=== PATIENT | male | born 1990 | race Caucasian/White ===

== ENCOUNTER 2019-08-12 11:18 | Outpatient (CLI) | payer OTHER, SELFPAY ==
--- NOTE | 2019-08-12 11:28 | ECG_ITS ---
Measurements Intervals [place] Rate: 128 P: 48 VA: 153 QRS: 63 QRSD: 94 T: -1 QT: 305 QTc: 446 Interpretive Statements SINUS TACHYCARDIA INFERIOR INFARCT, AGE INDETERMINATE ABNORMAL ECG Electronically Signed On 08-12-2019 12:16:10 CAPACITY PLANNER by Santiago Jung D.O.
== END 2019-08-12 11:19 | disposition home or self-care (01) ==
LOC: ANHCARD 11:20
PROVIDERS: PCP Internal Medicine; Visit Provider Physician Assistant
DX: R00.0 Tachycardia, unspecified (principal); R94.31 Abnormal electrocardiogram [ECG] [EKG]
CPT/HCPCS: 93005

== ENCOUNTER 2019-09-09 09:23 | Emergency (ER) | payer OTHER, SELFPAY ==
[2019-09-09 09:35] VITALS: BP 130/99; PULSE 152; RESP 20; TEMP 36.9; O2SAT 98
--- NOTE | 2019-09-09 10:26 | ED.ANXIETY ---
HPI - Anxiety General Chief Complaint: Anxiety Stated Complaint: VERTIGO/HALLUCINATIONS Time Seen by Provider: 09/09/19 10:05 Source: patient Mode of arrival: ambulatory Limitations: no limitations History of Present Illness HPI narrative: A 28 y/o male pt presents to the ED, with c/o anxiety, difficulty sleeping, and vertigo x 13 days. Pt states that he has only been able to sleep 1 hour at a time. He states he was recently sick x 4 days with N/V and decreased intake of food, but started feeling better x 2 days ago. Pt reports hallucinations and hearing voices x 2 days. He notes myalgia, anxiety, and fatigue, but denies chills, sweats, SOB, or fever. He notes having CP recently that he was evaluated at [facility] for and states that all results were normal. Pt reports hearing voices telling him to kill himself x 3 days ago, but denies any suicidal/homicidal thoughts or plan. Pt states that he has a PMHx of anxiety, depression and HTN. He reports being prescribed Buspirone and Mirtazapine in April by his psychiatrist. Pt reports a family hx of Schizophrenia and notes being a daily smoker and drinker. complaint: anxiety and other (vertigo) Onset (ago): day(s) (13) Symptoms: other (difficulty sleeping, vertigo, hallucination, hearing voices, fatigue, myalgias) Quality: worsening Associated symptoms: nausea/vomiting (subsided x 2 days ago) and other (hallucination, hearing voices, fatigue, myalgias, difficulty sleeping, vertigo) Related Data Home Medications Medication Instructions Recorded Confirmed buprenorphine 5.7 mg-naloxone 1.4 1 tablet SUBLINGUAL QID tablet 06/04/19 08/12/19 mg sublingual tablet vilazodone 40 mg tablet 40 mg PO DAILY 06/04/19 08/12/19 Allergies Allergy/AdvReac Type Severity Reaction Status Date / Time No Known Allergies Allergy Verified 09/09/19 09:44 Review of Systems Review of Systems: All systems reviewed & are unremarkable except as noted in HPI and below Constitutional: Constitutional: Denies chills, Reports difficulty sleeping, Denies excessive sweating, Reports fatigue and Denies fever(s) Cardiovascular: Cardiovascular: Reports chest pain (subsided) Respiratory: Respiratory: Denies dyspnea Gastrointestinal: Gastrointestinal: Denies diarrhea, Reports nausea (subsided) and Reports vomiting (subsided) Psychiatric: Psychiatric: Reports abnormal sleep pattern (1 hour of sleep at a time), Reports anxiety, Reports auditory hallucinations, Reports visual hallucinations, Denies homicidal ideation and Denies suicidal ideation PMFSH Past Medical History Medical History (Updated 09/09/19 @ 15:37 by Elayne Bueno MD) Anxiety Depression H/O: HTN (hypertension) Surgical History Surgical History (Updated 09/09/19 @ 13:25 by Lorraine Zelaya Photoblog) No significant past surgical history Social History Social History (Updated 09/09/19 @ 13:26 by Lorraine Zelaya Photoblog) Smoking status: Current every day smoker Tobacco type: cigarettes Second hand tobacco smoke exposure: No Alcohol intake: current Alcohol use details: daily Gender identity (if verbalized by the patient): Male Exam Narrative: Exam Narrative: General appearance: Well-developed, well-nourished Skin: Normal color Head: Normocephalic, nontraumatic Eyes: Clear conjunctiva ENT: Oropharynx normal, ears normal, nose normal Neck: Supple, nontender Chest and respiratory: Airway patent, no respiratory distress, no accessory muscle use Heart: Regular rate/rhythm Abdomen: Soft, nontender, no organomegaly, quiet bowel sounds Vascular: Normal peripheral pulses, normal capillary refill. Musculoskeletal: Normal range of motion, nontender back Neurologic: Alert and oriented ?3, SPRING FITTER is normal as tested, no gross motor deficit
--- NOTE | 2019-09-09 10:29 | ECG_ITS ---
Measurements Intervals [place] Rate: 130 P: 45 [place]: 139 QRS: 62 QRSD: 94 T: 4 QT: 315 QTc: 464 Interpretive Statements SINUS TACHYCARDIA INFERIOR INFARCT, AGE INDETERMINATE ABNORMAL ECG Electronically Signed On 09-09-2019 10:37:43 CDT by Santiago Jung D.O.
[2019-09-09 10:36] VITALS: BP 130/89; PULSE 132; RESP 11; TEMP 36.2; O2SAT 97
[2019-09-09] MEDS: LORAZEPAM 1 MG TABLET PO (10:38)
[2019-09-09 10:56] LABS: Basophils Absolute Auto 0.1 K/mm3 (0.0-0.1); Basophils Percent Auto 0.5 % (0.2-1.2); Eosinophils Absolute Auto 0.1 K/mm3 (0-0.3); Eosinophils Percent Auto 0.6 % (0-4.4); Hematocrit 41.3 % (42.0-52.0); Hemoglobin 14.2 g/dL (14.0-18.0); Immature Granulocyte Absolute 0.09 K/mm3 (0.00-0.031); Immature Granulocyte Percent A 0.7 % (0-0.5); Lymphocytes Absolute Auto 0.86 K/mm3 (0.9-3.2); Lymphocytes Percent Auto 6.9 % (18.3-44.2); Mean Corpuscular HGB Conc 34.4 g/dl (32-36); Mean Corpuscular Hemoglobin 30.8 pg (26-34); Mean Corpuscular Volume 89.6 fl (80-100); Mean Platelet Volume 10.9 fl (7.4-10.4); Monocytes Absolute Auto 0.7 K/mm3 (0.1-0.6); Monocytes Percent Auto 5.7 % (2.6-8.5); Neutrophils Absolute Auto 10.6 K/mm3 (1.3-6.7); Neutrophils Percent Auto 85.6 % (45.5-73.1); Platelet Count Result 143 k/mm3 (150-375); Red Blood Count 4.61 M/mm3 (4.6-6.20); Red Cell Distribution Width 14.6 % (11.5-14.5); White Blood Count 12.4 K/mm3 (4.5-10.0)
[2019-09-09 11:00] LABS: Add Urine Microscopic? YES; Appearance Urine Clear (Clear); Bacteria Urine Trace /hpf; Bilirubin Urine 1+ (Negative); Blood Urine Negative (Negative); Color Urine Amber (Yellow); Glucose Urine UA Negative (Negative); Ketones Urine Trace mg/dL (Negative); Leukocyte Esterase Ur Negative LEU/UL (Negative); Mucus Urine Rare /lpf; Nitrate Urine Negative (Negative); Protein Urine 1+ mg/dL (Negative); RBC Urine 0-2 /hpf (0-2); Specific Grav Ur 1.017 (1.001-1.035); Squamous Epithelial Cell Urine Rare /hpf (Few)
[2019-09-09 11:05] LABS: Ethanol < 10 mg/dL (<10)
[2019-09-09 11:06] LABS: Alanine Aminotransferase 315 U/L (4-50); Albumin Level 4.5 g/dL (3.5-5.1); Alkaline Phosphatase 200 U/L (38-126); Aspartate Amino Transferase 669 U/L (17-59); Bilirubin,Total 2.8 mg/dL (0.2-1.3); Blood Urea Nitrogen 9 mg/dL (9-20); Calcium 10.4 mg/dL (8.4-10.2); Carbon Dioxide 34 mmol/L (22-30); Chloride 90 mmol/L (98-107); Estimated Glomerular Filt Rate > 60; Glucose 129 mg/dL (75-110); Potassium 3.2 mmol/L (3.4-5.0); Sodium 130 mmol/L (137-145)
[2019-09-09 11:35] LABS: Amphetamine Screen Urine Negative (Negative); Barbiturate Screen Urine Negative (Negative); Benzodiazepines Screen Urine Negative (Negative); Cannabinoid Screen Urine Negative (Negative); Cocaine Screen Urine Negative (Negative); Methadone Screen Urine Negative (Negative); Opiate Screen Urine Negative (Negative); Phencyclidine Screen Urine Negative (Negative)
[2019-09-09] MEDS: LORAZEPAM 0.5 MG TABLET 1 MG PO (12:32)
[2019-09-09 13:01] VITALS: BP 142/76; PULSE 89; RESP 18; O2SAT 100
--- NOTE | 2019-09-09 13:20 | PC.NURSE ---
Crisis here to see pt.
--- NOTE | 2019-09-09 14:40 | PC.NURSE ---
Per precision layout worker Surjit, pt does not meet qualification to have pt committed to facility. precision layout worker states that pt is just sleep deprived and once pt sleeps the voices will go away. I informed Maris to speak with pts Dr. Francisco Bueno) and inform him of this. Per Dr. Bueno he does not think pt should leave hospital. He will keep him here until we can find a bed for pt.
[2019-09-09 15:13] VITALS: BP 141/76; PULSE 82; RESP 18; O2SAT 100
[2019-09-09] MEDS: NICOTINE (*PBKC) 21 MG PATCH 1 PATCH TRANSDERM (15:14)
[2019-09-12 10:04] LABS: Methyl Alcohol Level None Detected (None Detected)
== END 2019-09-09 15:44 | disposition home or self-care (01) ==
PROVIDERS: Emergency Provider Emergency Medicine; PCP Internal Medicine
DX: G47.00 Insomnia, unspecified (principal); F32.9 Major depressive disorder, single episode, unspecified; F41.9 Anxiety disorder, unspecified; I10 Essential (primary) hypertension; F17.210 Nicotine dependence, cigarettes, uncomplicated; R00.0 Tachycardia, unspecified; R94.31 Abnormal electrocardiogram [ECG] [EKG]
CPT/HCPCS: 36415; 80053; 80307; 81001; 84443; 84600; 85025; 93005; 99284; A9270

== ENCOUNTER 2020-02-21 00:21 | Emergency (ER) | payer OTHER, SELFPAY ==
[2020-02-21 00:24] VITALS: BP 135/80; PULSE 96; RESP 15; TEMP 36.7; O2SAT 97
[2020-02-21 00:34] VITALS: BP 139/79; PULSE 98; RESP 14; RESP 18; TEMP 36.7; O2SAT 100
[2020-02-21 02:15] VITALS: BP 127/50; PULSE 89; RESP 14; O2SAT 92
[2020-02-21 03:00] VITALS: BP 134/58; PULSE 85; RESP 12; O2SAT 92
--- NOTE | 2020-02-21 03:01 | ED.OVERDOSE ---
HPI - Overdose General Chief Complaint: Overdose Stated Complaint: od Time Seen by Provider: 02/21/20 02:46 Source: patient Mode of arrival: EMS Limitations: no limitations History of Present Illness HPI Narrative: This patient is a 29 year old male with history of opioid addiction who presents for evaluation after an overdose. PAtient states he has been off fentanyl for a while but tonight he decided to use again. He was found unresponsive by his parents. EMS reportedly gave patient 16 mg narcan. Patient denies any complaints. Related Data Home Medications Medication Instructions Recorded Confirmed buprenorphine 5.7 mg-naloxone 1.4 1 tablet SUBLINGUAL QID tablet 06/04/19 08/12/19 mg sublingual tablet vilazodone 40 mg tablet 40 mg PO DAILY 06/04/19 08/12/19 Allergies Allergy/AdvReac Type Severity Reaction Status Date / Time No Known Allergies Allergy Verified 09/09/19 09:44 Review of Systems Review of Systems: All systems reviewed & are unremarkable except as noted in HPI and below Constitutional: Constitutional: Denies chills and Denies fever(s) Cardiovascular: Cardiovascular: Denies chest pain Respiratory: Respiratory: Denies cough and Denies dyspnea Gastrointestinal: Gastrointestinal: Denies abdominal pain, Denies nausea and Denies vomiting Neurologic: Reports headache(s) PMFSH Past Medical History Medical History (Updated 02/21/20 @ 03:45 by Louise Parks MD) Anxiety Depression H/O: HTN (hypertension) Surgical History Surgical History (Updated 09/09/19 @ 13:25 by Lorraine Zelaya Adype) No significant past surgical history Social History Social History (Updated 09/09/19 @ 13:26 by Lorraine Zelaya Adype) Smoking status: Current every day smoker Tobacco type: cigarettes Second hand tobacco smoke exposure: No Alcohol intake: current Gender identity (if verbalized by the patient): Male Exam Narrative: Exam Narrative: GENERAL: Well-appearing, well-nourished, and in no acute distress. HEAD: Normocephalic, atraumatic EYES: PERRLA and EOMI, conjunctiva clear without discharge EARS: TM's clear bilaterally without erythema or dullness NOSE: Nares clear, no rhinorrhea or epistaxis THROAT:Mucous membranes moist, Oropharynx normal without erythema, exudate, peritonsillar swelling or fluctuance NECK: Supple, without lymphadenopathy or mass RESPIRATORY: No respiratory distress, Airway patent, Respirations non-labored, Clear to auscultation without rales, rhonchi or wheeze HEART: Regular rate and rhythm. No murmur heard. Normal peripheral pulses. ABDOMEN: Soft, nontender, nondistended, normal active bowel sounds. No masses. No rebound or guarding, No organomegaly. EXTREMITIES: No edema, normal strength with full range of motion. SKIN: Warm, dry, normal color without rash NEURO: Alert and oriented x3. CN 2-12 grossly intact. No focal deficits. PSYCH: Normal mood and affect. Course Reevaluation(s) Reevaluation #1: PAtient has no complaints. His father is at bedside and patient lives with his parents. He has not needed narcan for over 3 hours. He is stable for discharge home. Date: 02/21/20 Time: 03:43 Vital Signs Vital signs: Vital Signs Temperature 98.0 F 02/21/20 00:24 Pulse Rate 96 02/21/20 00:24 Respiratory Rate 15 02/21/20 00:24 Blood Pressure 135/80 02/21/20 00:24 Pulse Oximetry 97 02/21/20 00:24 Temperature 98.0 F 02/21/20 00:34 Pulse Rate 85 02/21/20 04:20 Respiratory Rate 14 02/21/20 04:20 Blood Pressure 126/65 02/21/20 04:20 Pulse Oximetry 94 02/21/20 04:20 Discharge Plan Discharge Clinical Impression: Accidental fentanyl overdose Patient Disposition: Home, Self-Care Condition: Stable Instructions: Antibiotic Form, Adult Overdose (ED) Prescriptions: No Action Viibryd 40 mg tablet 40 mg PO DAILY RF: 0 Zubsolv 5.7-1.4 mg tablet, sublingual 1 tablet SUBLINGUAL QID RF: 0 ome
--- NOTE | 2020-02-21 03:05 | PC.NURSE ---
Pt in room with father watching TV. Pt denies being any pain or having and discomfort at this time. Pt is alert and answers questions appropriately.
--- NOTE | 2020-02-21 03:44 | PC.NURSE ---
Pt updated by this nurse as to why he is still here. Pt verbalized understanding of needing close monitoring due to indigestion of some substance causing his to become unresponsive and needing Narcan.
[2020-02-21 04:20] VITALS: BP 126/65; PULSE 85; RESP 14; O2SAT 94
== END 2020-02-21 04:20 | disposition home or self-care (01) ==
PROVIDERS: Emergency Provider General Practice; PCP Internal Medicine
DX: T40.4X1A Poisoning by other synthetic narcotics, accidental (unintentional), initial encounter (principal); I10 Essential (primary) hypertension; F41.9 Anxiety disorder, unspecified; F32.9 Major depressive disorder, single episode, unspecified; F17.210 Nicotine dependence, cigarettes, uncomplicated
CPT/HCPCS: 99281

== ENCOUNTER 2021-05-26 08:16 | Emergency (ER) | payer OTHER, SELFPAY ==
--- NOTE | ~2021-05-26 | XR_ITS ---
EXAMINATION: XR chest 2V EXAM DATE: 05/26/2021 09:21 INDICATION: sob, cough, congestion TECHNIQUE: Frontal and lateral projections of the chest obtained and reviewed. There is no prior ami dy for comparison. FINDINGS: The lungs are clear. There are no pleural effusions. The cardiomediastinal silhouette is within normal limits. There is no pneumothorax suspected. The bones and soft tissues are unremarkab le. IMPRESSION: No acute cardiopulmonary findings. Reviewed, dictated and finalized at location A. ICK CAR OPERATOR
[2021-05-26 08:20] VITALS: BP 128/67; PULSE 66; O2SAT 98
[2021-05-26 08:55] VITALS: BP 120/95; PULSE 67; RESP 12
--- NOTE | 2021-05-26 09:13 | ECG_ITS ---
Measurements Intervals [place] Rate: 64 P: 153 [place]: 184 QRS: 144 QRSD: 102 T: 58 QT: 416 QTc: 432 Interpretive Statements SINUS RHYTHM LIMB LEAD REVERSAL MINIMAL Q WAVES- INFERIOR LEADS BORDERLINE T WAVE ABNORMALITY- INFERIOR LEADS BASELINE ARTIFACT- I, III, AVL BORDERLINE ECG Electronically Signed On 05-26-2021 9:48:54 CONTENT CREATION MANAGER by Santiago Jung D.O.
[2021-05-26 09:39] VITALS: PULSE 70
[2021-05-26 09:43] LABS: Basophils Percent Auto 0.3 % (0.2-1.2); Eosinophils Absolute Auto 0.2 K/mm3 (0-0.3); Eosinophils Percent Auto 2.9 % (0-4.4); Hemoglobin 13.8 g/dL (14.0-18.0); Immature Granulocyte Absolute 0.03 K/mm3 (0.00-0.031); Immature Granulocyte Percent A 0.5 % (0-0.5); Lymphocytes Absolute Auto 2.52 K/mm3 (0.9-3.2); Lymphocytes Percent Auto 40.1 % (18.3-44.2); Mean Corpuscular HGB Conc 34.5 g/dl (32-36); Mean Corpuscular Hemoglobin 31.9 pg (26-34); Mean Corpuscular Volume 92.6 fl (80-100); Mean Platelet Volume 10.3 fl (7.4-10.4); Monocytes Absolute Auto 0.5 K/mm3 (0.1-0.6); Monocytes Percent Auto 7.2 % (2.6-8.5); Neutrophils Absolute Auto 3.1 K/mm3 (1.3-6.7); Platelet Count Result 233 k/mm3 (150-375); Red Blood Count 4.32 M/mm3 (4.6-6.20); Red Cell Distribution Width 13.7 % (11.5-14.5); White Blood Count 6.3 K/mm3 (4.5-10.0)
--- NOTE | 2021-05-26 09:49 | ED.SOB ---
HPI - SOB/Dyspnea General Chief Complaint: Shortness of Breath/Dyspnea Stated Complaint: Low O2 Time Seen by Provider: 05/26/21 09:13 Source: patient Mode of arrival: ambulatory Limitations: no limitations History of Present Illness HPI Narrative: This is a 30 year old male that presents to the ER for cough ongoing over the last couple of days. Reports a productive cough, congestion and sore throat. Also reports shortness of breath and wheezing. Is a current smoker. Denies any known history of asthma or COPD. Reports he is Covid vaccinated. Denies fever or chest pain. Related Data Allergies Allergy/AdvReac Type Severity Reaction Status Date / Time No Known Allergies Allergy Verified 04/12/20 13:40 Review of Systems Review of Systems: CONSTITUTIONAL: Denies fever ENT: Reports congestion, sore throat CARDIOVASCULAR: Denies chest pain or edema. RESPIRATORY: Reports cough and dyspnea. PSYCHIATRIC: Reports anxiety All systems reviewed & are unremarkable except as noted in HPI and below PMFSH Past Medical History Medical History Anxiety Depression H/O: HTN (hypertension) Surgical History Surgical History No significant past surgical history Family History Family History Mother Patient's mother is in good health Father Patient's father is in good health Sibling Patient's brother is in good health Social History Social History (Updated 05/26/21 @ 10:04 by Maryjane Thrasher PA-C) Smoking packs per day: 1 Smoking cigarettes per day: 20.0 Years smoked: 12 Smoking pack-years: 12.00 Smoking status: Current every day smoker Tobacco type: cigarettes Second hand tobacco smoke exposure: No Alcohol intake: current Alcohol use details: daily Substance use: current Substance use type: opiates Gender identity (if verbalized by the patient): Male Exam Narrative: GENERAL: Well-appearing, well-nourished, and in no acute distress. HEAD: Normocephalic, atraumatic. EYES: EOMI. ENT: Nares clear, no rhinorrhea or epistaxis. Mucous membranes dry. Oropharynx without tonsillar hypertrophy exudate or other lesions. Bilateral TMs pearly caldera non-bulging NECK: Supple. No adenopathy or masses. CHEST: No respiratory distress. Wheezing noted throughout the bilateral lungs. No rales or rhonchi HEART: Regular rate and rhythm. No murmur heard. Normal peripheral pulses. EXTREMITIES: Normal range of motion. No edema. SKIN: Warm, dry, no rash. NEURO: No focal deficits. Alert and oriented x3. PSYCH: Normal mood and affect Course Vital Signs Vital signs: Vital Signs Pulse Rate 66 05/26/21 08:20 Blood Pressure 128/67 05/26/21 08:20 Pulse Oximetry 98 05/26/21 08:20 Pulse Rate 70 05/26/21 09:39 Respiratory Rate 12 05/26/21 08:55 Blood Pressure 120/95 H 05/26/21 08:55 Pulse Oximetry 98 05/26/21 08:20 MDM - SOB/Dyspnea MDM Narrative Medical decision making narrative: Patient presents to the emergency department for cough and shortness of breath. Present over the last couple of days. Patient reports he is Covid vaccinated. He is afebrile and nontoxic-appearing. Oxygen saturation is remained normal on room air. Patient noted to be wheezing on arrival. Given dose of prednisone and albuterol inhaler with relief. Will be continued on oral steroids. Chest x-ray without acute cardiopulmonary abnormality. EKG without concerning changes. Patient is stable and felt appropriate for further outpatient evaluation. He was given warnings to return to the ER Lab Data Attestation: I reviewed the patient's lab results. Result diagrams: 05/26/21 09:35 05/26/21 09:35 Labs: Lab Results 05/26/21 05/26/21 Range/Units 09:35 09:35 WBC 6.3 (4.5-10.0) K/mm3 RBC 4.32 L (4.6-6.20) M/mm3 Hg
[2021-05-26 09:54] LABS: Anion Gap 10 mmol/L (8-16); Blood Urea Nitrogen 8 mg/dL (9-20); Carbon Dioxide 27 mmol/L (22-30); Chloride 107 mmol/L (98-107); Estimated CRCL calculation 144 ml/min; Estimated Glomerular Filt Rate > 60; Glucose 108 mg/dL (65-110); Potassium 3.5 mmol/L (3.4-5.0); Sodium 144 mmol/L (137-145)
--- NOTE | 2021-05-26 09:59 | PC.NURSE ---
Spoke with mother Jazlyn gave her an update, she provided dad(Kevin) number
[2021-05-26] MEDS: ALBUTEROL SULFATE (*SP) AEROSOL 1 PUFF 2 PUFF INHALATION ×2 (10:05→10:54)
[2021-05-26] MEDS: predniSONE 20 MG TABLET 40 MG PO (10:22)
[2021-05-26 11:25] VITALS: TEMP 36.3
== END 2021-05-26 11:33 | disposition home or self-care (01) ==
PROVIDERS: Physician Assistant; Emergency Provider Emergency Medicine; PCP Physician Assistant
DX: J45.901 Unspecified asthma with (acute) exacerbation (principal); F41.9 Anxiety disorder, unspecified; F32.A Depression, unspecified; F17.210 Nicotine dependence, cigarettes, uncomplicated
CPT/HCPCS: 36415; 71046; 80048; 85025; 93005; 99283; A9270; J7512

== ENCOUNTER 2021-07-15 15:13 | Emergency (ER) | payer SELFPAY ==
[2021-07-15 15:15] VITALS: BP 144/65; PULSE 83; RESP 14; TEMP 36.4; O2SAT 100
[2021-07-15 16:35] VITALS: BP 125/80; PULSE 70; RESP 18; O2SAT 100
[2021-07-15] MEDS: ONDANSETRON INJ 4 MG/2 ML VIAL IV PUSH ×2 (17:53→19:42)
[2021-07-15] MEDS: SODIUM CHLORIDE 0.9% IV 1,000 ML 999 ML IV CONT (17:53)
--- NOTE | 2021-07-15 17:59 | ED.ALCOHOL ---
HPI - Alcohol General Chief Complaint: Alcohol Stated Complaint: detox, last ETOH last night Time Seen by Provider: 07/15/21 16:47 Source: patient Limitations: no limitations History of Present Illness HPI narrative: 30-year-old male with a history of alcohol use disorder, opiate use disorder, and hypertension presents to the ED secondary to concerns for alcohol withdrawal and with request for alcohol detox. Patient states he has been a daily alcohol drinker for a very long time. He typically drinks 750 - 1000 mLs of liquor daily. Last drink was earlier this AM. Shortly afterwards he began to experience nausea, vomiting, severe anxiety, and resting tremor. Patient attempted to go to rehab this afternoon however is currently positive for COVID-19, therefore was informed he was unable to initiate rehab at this time. Patient was advised to come to the ED for further evaluation. No history of alcohol withdrawal seizure. He also endorses occasional opiate use, last snorting fentanyl 4 days ago. No recent history of fever, chills, hematemesis, melena, hematochezia, or abdominal pain. Patient currently lives with his parents. Related Data Allergies Allergy/AdvReac Type Severity Reaction Status Date / Time No Known Allergies Allergy Verified 07/15/21 15:17 Review of Systems Review of Systems: CONSTITUTIONAL: Denies fever, chills, or sweats. EYES: Denies visual changes, redness, or discharge. ENT: Denies rhinorrhea, congestion, sore throat, or otalgia. CARDIOVASCULAR: Denies chest pain, palpitations, or edema. RESPIRATORY: Denies cough or dyspnea. GASTROINTESTINAL: Nausea and vomiting GENITOURINARY: Denies dysuria or hematuria. SKIN: Denies rash or itching. MUSCULOSKELETAL: Denies back pain, joint pain, or myalgia. NEUROLOGIC: Tremor. PSYCHIATRIC: Anxious; substance abuse All systems reviewed & are unremarkable except as noted in HPI and below PMFSH Past Medical History Medical History Anxiety Depression H/O: HTN (hypertension) Surgical History Surgical History No significant past surgical history Family History Family History Mother Patient's mother is in good health Father Patient's father is in good health Sibling Patient's brother is in good health Social History Social History Smoking packs per day: 1 Smoking cigarettes per day: 20.0 Years smoked: 12 Smoking pack-years: 12.00 Smoking status: Current every day smoker Tobacco type: cigarettes Second hand tobacco smoke exposure: No Alcohol intake: current Alcohol use details: daily Substance use: current Substance use type: opiates Gender identity (if verbalized by the patient): Male Exam Narrative: GENERAL: Uncomfortable appearing HEAD: Normocephalic, atraumatic. EYES: PERRLA and EOMI. ENT: Nares clear, no rhinorrhea or epistaxis. Mucous membranes moist NECK: Supple. No adenopathy or masses. No carotid bruits or JVD CHEST: Clear to auscultation. No respiratory distress. No wheezes rales or rhonchi HEART: Regular rate and rhythm. No murmur heard. Normal peripheral pulses. ABDOMEN: Soft, nontender, nondistended, normal active bowel sounds. EXTREMITIES: Normal range of motion. No edema. SKIN: Warm, dry, no rash. NEURO: Intermittent resting tremor. Alert and oriented x4; clear speech. PSYCH: Moderately anxious appearing; cooperative. Course Course Emergency Course: Patient presents with EtOH withdrawal in the setting of very heavy daily alcohol use. Vital signs stable. Not tachycardic. He is much more comfortable appearing at this time. Patient is agreeable to discharge at this time with plan for Librium taper. He was advised to discontinue Klonopin while using Librium (this would be preferred given michelle
[2021-07-15 18:02] LABS: Basophils Absolute Auto 0.1 K/mm3 (0.0-0.1); Basophils Percent Auto 0.4 % (0.2-1.2); Eosinophils Percent Auto 0.1 % (0-4.4); Hematocrit 49.9 % (42.0-52.0); Hemoglobin 17.6 g/dL (14.0-18.0); Immature Granulocyte Absolute 0.04 K/mm3 (0.00-0.031); Immature Granulocyte Percent A 0.3 % (0-0.5); Lymphocytes Absolute Auto 2.82 K/mm3 (0.9-3.2); Lymphocytes Percent Auto 19.8 % (18.3-44.2); Mean Corpuscular HGB Conc 35.3 g/dl (32-36); Mean Corpuscular Hemoglobin 30.3 pg (26-34); Mean Corpuscular Volume 85.9 fl (80-100); Mean Platelet Volume 9.9 fl (7.4-10.4); Monocytes Absolute Auto 0.9 K/mm3 (0.1-0.6); Neutrophils Absolute Auto 10.5 K/mm3 (1.3-6.7); Neutrophils Percent Auto 73.4 % (45.5-73.1); Platelet Count Result 331 k/mm3 (150-375); Red Blood Count 5.81 M/mm3 (4.6-6.20); Red Cell Distribution Width 14.4 % (11.5-14.5); White Blood Count 14.3 K/mm3 (4.5-10.0)
[2021-07-15] MEDS: LORazepam INJ (*CRX) 2 MG/ML VIAL 1 MG IV PUSH ×2 (18:02→19:41)
[2021-07-15 18:13] LABS: Alanine Aminotransferase 43 U/L (4-50); Albumin Level 5.1 g/dL (3.5-5.1); Alkaline Phosphatase 98 U/L (38-126); Anion Gap 17 mmol/L (8-16); Aspartate Amino Transferase 57 U/L (17-59); Bilirubin,Total 0.8 mg/dL (0.2-1.3); Blood Urea Nitrogen 12 mg/dL (9-20); Calcium 9.9 mg/dL (8.4-10.2); Carbon Dioxide 25 mmol/L (22-30); Chloride 95 mmol/L (98-107); Estimated CRCL calculation 143 ml/min; Estimated Glomerular Filt Rate > 60; Glucose 94 mg/dL (65-110); Lipase 240 U/L (23-300); Potassium 3.6 mmol/L (3.4-5.0); Sodium 137 mmol/L (137-145)
[2021-07-15 19:47] VITALS: BP 146/82; PULSE 79; RESP 18; O2SAT 97
[2021-07-15 20:45] VITALS: BP 135/73; PULSE 74; RESP 18; O2SAT 98
== END 2021-07-15 20:48 | disposition home or self-care (01) ==
PROVIDERS: Physician Assistant; Emergency Provider Emergency Medicine; PCP Physician Assistant
DX: F10.239 Alcohol dependence with withdrawal, unspecified (principal); U07.1 COVID-19; I10 Essential (primary) hypertension; F17.210 Nicotine dependence, cigarettes, uncomplicated
CPT/HCPCS: 36415; 80053; 83690; 83735; 85025; 96361; 96374; 96375; 96376; 99284; J2060; J2405; J7030

== ENCOUNTER 2021-08-30 18:43 | Emergency (ER) | payer OTHER, SELFPAY ==
--- NOTE | ~2021-08-30 | CT_ITS ---
EXAMINATION: CT cervical spine wo con DATE: 08/30/2021 20:04 INDICATION: Unresponsive post possible fall TECHNIQUE: Computed tomography (CT) of the cervical spine was performed without intravenous contrast. Automated exposure control and iterative reconstruction technique were employed. The dose-length pro duct was 462.09 mGy-cm. COMPARISON: None FINDINGS: Mild dextrocurvature at the cervicothoracic junction. Sagittal alignment is normal. Vertebral body an d disc heights are normal. No fracture. Moderate facet osteoarthritis on the left at C7-T1. Minimal t o mild facet osteoarthritis at a few additional cervical levels. No central canal or neural foraminal stenosis. Cervical soft tissues are unremarkable. Mosaic attenuation at the visualized apices likely related to expiratory phase of imaging. 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 IMPRESSION: 1. No acute osseous abnormality. Reviewed, dictated and finalized at location A. CTOR OF INTERCOLLEGIATE ATHLETICS
--- NOTE | ~2021-08-30 | CT_ITS ---
EXAMINATION: CT brain wo con DATE: 08/30/2021 20:04 INDICATION: Unresponsive. Fall. TECHNIQUE: Computed tomography (CT) of the head was performed without intravenous contrast. Sagittal and coronal reconstructions were performed. The mA was adjusted according to patient size. Iterative reconstruction technique was employed. The dose-length product was 681.00 mGy-cm. COMPARISON: None FINDINGS: No fracture. No acute intracranial hemorrhage, acute infarction or abnormal extra axial fluid collect ion. Ventricles are normal and symmetric. No mass/mass effect. Solid appearing 1.2 cm lytic lesion in the left side of the occipital bone with narrow zone of transition and relatively homogeneous centra l groundglass attenuation matrix most consistent with fibrous dysplasia. Mild mucosal thickening the right ethmoid and maxillary sinuses. The orbits and mastoid air cells are normal. IMPRESSION: 1. Mild brain. No fracture or acute intracranial process. 2. 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 Reviewed, dictated and finalized at location A. ICAL SCIENCE TECHNICIAN IMPRESSION: 1. Mild brain. No fracture or acute intracranial process. 2. Indolent appearing small lytic lesion in the left occipital bone with appear ance favoring fibrous dysplasia.
--- NOTE | ~2021-08-30 | XR_ITS ---
EXAMINATION: XR chest 1V portable DATE: 08/30/2021 19:45 INDICATION: Found unresponsive. TECHNIQUE: frontal view of the chest was obtained. COMPARISON: Chest radiograph dated 05/26/21 FINDINGS: The lungs remain clear with no focal airspace opacities, pulmonary edema, pleural effusion or pneumot horax. The cardiomediastinal silhouette is within normal limits accounting for slight rightward rotat ion. Visualized bones and soft tissues are unremarkable. IMPRESSION: 1. No acute cardiopulmonary disease. Reviewed, dictated and finalized at location A. OTIST/PROSTHETIST
[2021-08-30 18:45] VITALS: BP 126/102; PULSE 99; RESP 28; TEMP 36.4; O2SAT 99
[2021-08-30 18:58] LABS: Glucose Point of Care 130 mg/dl (65-105)
--- NOTE | 2021-08-30 19:08 | ECG_ITS ---
Measurements Intervals [place] Rate: 87 P: 42 [place]: 185 QRS: 73 QRSD: 100 T: 26 QT: 373 QTc: 450 Interpretive Statements SINUS RHYTHM BASELINE ARTIFACT INSIGNIFICANT Q-WAVES BORDERLINE ECG COMPARED TO ECG 05/26/2021 09:40:47 NO SIGNIFICANT CHANGES Electronically Signed On 08-31-2021 13:08:52 DIRECTOR CORPORATE by Chilo Adam M.D.
[2021-08-30] MEDS: NALOXONE HCL 0.4 MG/ML VIAL IV PUSH (19:31)
[2021-08-30 19:35] LABS: Alveolar/Arterial O2 Gradient 35.4 mmHg; Base Excess ABG 1.1 mEq/l (+/-2.0); Fractional Inspired Oxygen 21 %; HCO3 ABG 26.1 mEq/l (22.0-26.0); Oxygen Content ABG 17.5 %vol (16.0-22.0); Oxygen Saturation ABG 92.3 % (95.0-100.0); PCO2 ABG 42.6 mmHg (35.0-45.0); PO2 ABG 63.3 mmHg (80.0-100.0); PO2 FiO2 Ratio Arterial Blood 3.01 %; Total Hemoglobin 14.4 g/dL (12.0-18.0); pH ABG 7.405 (7.350-7.450)
[2021-08-30 19:39] LABS: Modified Allen's Test Pass; Oxyhemoglobin 86.5 % THb (90.0-100.0); Site Drawn RIGHT RADIAL
[2021-08-30 19:40] LABS: Device ROOM AIR
[2021-08-30 19:41] LABS: Basophils Absolute Auto 0.1 K/mm3 (0.0-0.1); Basophils Percent Auto 0.5 % (0.2-1.2); Eosinophils Absolute Auto 0.3 K/mm3 (0-0.3); Eosinophils Percent Auto 3.3 % (0-4.4); Hematocrit 42.6 % (42.0-52.0); Immature Granulocyte Absolute 0.06 K/mm3 (0.00-0.031); Immature Granulocyte Percent A 0.6 % (0-0.5); Lymphocytes Absolute Auto 2.72 K/mm3 (0.9-3.2); Lymphocytes Percent Auto 29.1 % (18.3-44.2); Mean Corpuscular HGB Conc 32.9 g/dl (32-36); Mean Corpuscular Hemoglobin 29.9 pg (26-34); Mean Platelet Volume 11.7 fl (7.4-10.4); Monocytes Absolute Auto 0.8 K/mm3 (0.1-0.6); Neutrophils Absolute Auto 5.5 K/mm3 (1.3-6.7); Neutrophils Percent Auto 58.5 % (45.5-73.1); Platelet Count Result 249 k/mm3 (150-375); Red Blood Count 4.68 M/mm3 (4.6-6.20); Red Cell Distribution Width 15.8 % (11.5-14.5); White Blood Count 9.4 K/mm3 (4.5-10.0)
[2021-08-30 19:50] LABS: Ethanol 175 mg/dL (<10)
[2021-08-30 19:51] LABS: Partial Thromboplastin Time 26.4 SECONDS (22.3-36.8)
[2021-08-30 19:52] LABS: Alanine Aminotransferase 58 U/L (4-50); Albumin Level 4.5 g/dL (3.5-5.1); Alkaline Phosphatase 64 U/L (38-126); Anion Gap 13 mmol/L (8-16); Aspartate Amino Transferase 57 U/L (17-59); Bilirubin,Total 0.4 mg/dL (0.2-1.3); Blood Urea Nitrogen 8 mg/dL (9-20); Calcium 9.1 mg/dL (8.4-10.2); Carbon Dioxide 25 mmol/L (22-30); Chloride 102 mmol/L (98-107); Creatine Kinase 273 U/L (55-170); Estimated CRCL calculation 124 ml/min; Estimated Glomerular Filt Rate > 60; Glucose 107 mg/dL (65-110); Lactic Acid Reflex 3.5 mmol/L (0.7-2.1); Magnesium 1.8 mg/dL (1.6-2.3); Potassium 3.3 mmol/L (3.4-5.0); Sodium 140 mmol/L (137-145)
--- NOTE | 2021-08-30 20:09 | ED.OVERDOSE ---
HPI - Overdose General Chief Complaint: Overdose Stated Complaint: fentanyl overdose, given narcan slow to respond Time Seen by Provider: 08/30/21 19:00 Source: patient, family, EMS and RN notes reviewed Mode of arrival: EMS Limitations: clinical condition History of Present Illness HPI Narrative: This is 30 year old male with history of drug abuse who presents for evaluation of accidental overdose. EMS reported to nursing staff, patient's parents found patient on bathroom floor unresponsive. Patient started CPR on patient, and they also gave him 20 mg narcan. According to triage, patient was alert and oriented x 4 on their arrival. PAtient is sleepy in ER and unable to give history. Related Data Home Medications Medication Instructions Recorded Confirmed aripiprazole 5 mg tablet 5 mg PO DAILY 08/08/21 08/08/21 fluoxetine 20 mg tablet 20 mg PO DAILY 08/08/21 08/08/21 Allergies Allergy/AdvReac Type Severity Reaction Status Date / Time No Known Allergies Allergy Verified 08/30/21 18:54 Review of Systems Review of Systems: All systems reviewed & are unremarkable except as noted in HPI and below Constitutional: Constitutional: Denies chills and Denies fever(s) Respiratory: Respiratory: Denies dyspnea Gastrointestinal: Gastrointestinal: Denies abdominal pain, Denies diarrhea, Denies nausea and Denies vomiting Musculoskeletal: Musculoskeletal: Denies back pain Neurologic: Denies headache(s) [facility] Past Medical History Medical History Anxiety Depression H/O: HTN (hypertension) Surgical History Surgical History No significant past surgical history Family History Family History Mother Patient's mother is in good health Father Patient's father is in good health Sibling Patient's brother is in good health Social History Social History Smoking packs per day: 1 Smoking cigarettes per day: 20.0 Years smoked: 12 Smoking pack-years: 12.00 Smoking status: Current every day smoker Tobacco type: cigarettes Second hand tobacco smoke exposure: No Alcohol intake: current Alcohol use details: daily Substance use: current Substance use type: opiates Gender identity (if verbalized by the patient): Male Exam Const: Other: patient sleeping Eyes: Pupils: Equal, round and reactive pupils present EOM: EOMs intact bilaterally Resp: Effort & Inspection: normal respiratory effort and no retractions Auscultation: clear to auscultation bilaterally Cardio: Rate: regular rate Rhythm: regular rhythm Heart sounds: no murmurs GI: GI Palp: Yes Soft to palpation, No Tenderness to palpation present (GI) and No Guarding due to palpation present (GI) Auscultation: normal bowel sounds Neuro: General: patient oriented x3, moves all extremities and CN's II-XI intact bilaterally Psych: Mental Status: mental status grossly normal Affect: normal affect Course Reevaluation(s) Reevaluation #1: Patient is alert and oriented x 4 now. He states he is prescribed clonazepam and he admits to alcohol and fentanyl use today. Date: 08/30/21 Time: 22:42 Reevaluation #2: Patient is still awake , alert and oriented. he has been eating and drinking. His mother is being called for discharge. Patient is stable for discharge. Date: 08/31/21 Time: 00:04 Vital Signs Vital signs: Vital Signs Temperature 97.5 F L 08/30/21 18:45 Pulse Rate 99 08/30/21 18:45 Respiratory Rate 28 H 08/30/21 18:45 Blood Pressure 126/102 H 08/30/21 18:45 Pulse Oximetry 99 08/30/21 18:45 Temperature 97.5 F L 08/30/21 18:45 Pulse Rate 85 08/31/21 00:42 Respiratory Rate 17 08/31/21 00:42 Blood Pressure 121/68 08/31/21 00:42 Pulse Oximetry 98 08/31/21 00:42 MDM - Ove
[2021-08-30 20:19] LABS: Add Urine Microscopic? NO; Appearance Urine Clear (Clear); Bilirubin Urine Negative (Negative); Blood Urine Negative (Negative); Color Urine Yellow (Yellow); Glucose Urine UA Negative (Negative); Ketones Urine Negative (Negative); Leukocyte Esterase Ur Negative LEU/UL (Negative); Nitrate Urine Negative (Negative); Protein Urine Negative (Negative); Specific Grav Ur 1.013 (1.001-1.035); Urobilinogen Urine Negative mg/dL (<2.0)
[2021-08-30 20:28] LABS: Amphetamine Screen Urine Negative (Negative); Barbiturate Screen Urine Negative (Negative); Benzodiazepines Screen Urine Positive (Negative); Cannabinoid Screen Urine Negative (Negative); Cocaine Screen Urine Negative (Negative); Methadone Screen Urine Negative (Negative); Opiate Screen Urine Negative (Negative); Phencyclidine Screen Urine Negative (Negative)
[2021-08-30] MEDS: SODIUM CHLORIDE 0.9% IV 1,000 ML 999 ML IV CONT (20:59)
[2021-08-30] MEDS: NALOXONE HCL INJ 2 MG/2 ML AMP IV PUSH (20:59)
[2021-08-30] MEDS: THIAMINE HCL 200 MG/2 ML VIAL 100 MG IV PUSH (21:14)
[2021-08-30 22:38] LABS: Reflex Lactic Acid Yes or No Add Lactic
[2021-08-30 23:06] LABS: Lactic Acid 1.9 mmol/L (0.7-2.1)
--- NOTE | 2021-08-30 23:16 | PC.NURSE ---
Patient AOx4, sitting up in bed; patient requesting food and drink, which was provided; No further complaints at this time
[2021-08-31 00:11] VITALS: BP 124/71; PULSE 84; RESP 16; O2SAT 97
[2021-08-31 00:42] VITALS: BP 121/68; PULSE 85; RESP 17; O2SAT 98
== END 2021-08-31 00:37 | disposition home or self-care (01) ==
PROVIDERS: Emergency Provider General Practice; PCP Physician Assistant
DX: T40.411A Poisoning by fentanyl or fentanyl analogs, accidental (unintentional), initial encounter (principal); F10.129 Alcohol abuse with intoxication, unspecified; Y90.6 Blood alcohol level of 120-199 mg/100 ml; F41.9 Anxiety disorder, unspecified; F32.A Depression, unspecified; I10 Essential (primary) hypertension; F17.210 Nicotine dependence, cigarettes, uncomplicated; R94.31 Abnormal electrocardiogram [ECG] [EKG]
CPT/HCPCS: 36415; 36600; 70450; 71045; 72125; 80053; 80307; 81003; 82550; 82805; 82948; 83605; 83735; 84443; 85025; 85610; 85730; 93005; 96361; 96374; 96375; 96376; 99284; J2310; J3411; J7030

== ENCOUNTER 2021-10-30 23:55 | Inpatient (IN) | payer OTHER, SELFPAY ==
--- NOTE | ~2021-10-30 | CT_ITS ---
EXAMINATION: CT brain wo con INDICATION: Transient alteration of awareness COMPARISON: None TECHNIQUE: Standard unenhanced head CT. The dose-length product (DLP) was 681.00 mGy-cm. The mA was a djusted according to patient size. Iterative reconstruction technique was employed. FINDINGS: There is no intracranial hemorrhage, acute infarction, or abnormal mass lesion. The ventric les are normal. There is no abnormal mass effect or midline shift. The caldera-white matter differentiat ion is normal. The basal cisterns are patent. The orbits are normal. The paranasal sinuses, mastoids and calvarium are normal. IMPRESSION: 1. No acute intracranial abnormality. Reviewed, dictated and finalized at location A.
[2021-10-31] VITALS (38 sets, daily range): BP systolic 98–128; BP diastolic 48–93; PULSE 65–106; RESP 13–31; TEMP 35.8–36.9; O2SAT 86–100; BMI 32.1
[2021-10-31] MEDS: NALOXONE HCL INJ 2 MG/2 ML AMP IV PUSH (00:06)
--- NOTE | 2021-10-31 00:15 | PC.NURSE ---
Respiratory placed nasal trumpet in pt. Right nare. VORB ERP Devonte
--- NOTE | 2021-10-31 00:25 | ED.GENADULT ---
HPI - General Adult General Chief complaint: Altered Mental Status Stated complaint: AMS possible ETOH or opioid ingestion Time Seen by Provider: 10/31/21 00:06 Source: EMS and RN notes reviewed Mode of arrival: EMS Limitations: altered mental status History of Present Illness HPI narrative: 31-year-old male coming from home for altered mental status. Family states that the patient was drinking alcohol tonight, that they thought they saw him snort a material and then patient became increasingly somnolent and became unresponsive. EMS was called. EMS did give the patient intranasal Narcan with no improvement. Patient does have a prior history of opiate addiction and did have rehab approximately 6 months ago. Related Data Allergies Allergy/AdvReac Type Severity Reaction Status Date / Time Unable to Assess Allergy Verified 10/31/21 01:00 Review of Systems Review of Systems: ROS unobtainable: Yes unobtainable due to medical condition Exam Narrative: APPEARANCE: Somnolent HEAD: normocephalic, atraumatic. EYES: PERRLA/EOMI, conjunctivae clear. NOSE: Normal no drainage EARS:TMS clear with good light reflex. THROAT: Pharynx clear, no exudate. NECK: Supple. No adenopathy, no masses. RESPIRATORY: Airway patent, respirations nonlabored. Clear to auscultation bilaterally, no rales, rhonchi, wheezing. CARDIOVASCULAR: Regular rate and rhythm without murmurs rubs or gallops. ABDOMINAL: Soft, nontender, nondistended, normal bowel sounds MUSCULOSKELETAL: Moves all extremities. Strength/ROM intact, No edema, No calf tenderness. NEURO: Alert. Cranial nerves II through XII intact. Grossly intact SKIN: Warm, dry. Normal Color Course Course Emergency Course: Patient does have a GCS of 9. Does does respond to adverse stimuli and does have a gag reflex. Patient does have a nasal airway in place. Patient's oxygenation is 95% with blow-by oxygen. Patient was positive for benzodiazepines and does have a blood alcohol of 472. Additional Narcan was given in the ED with no change. Case was discussed with both the hospitalist and the fixed wing aircraft flight engineer and patient was accepted for admission to the ICU. Reevaluation(s) Reevaluation #1: Prior to going to the floor patient was reevaluated. Patient does still have a gag reflex and does respond to adverse stimuli. Patient was placed on supplemental oxygen. After nasal suctioning patient was saturating at 98% on room air. Vital Signs Vital signs: Vital Signs Temperature 98.0 F 10/31/21 00:00 Pulse Rate 106 H 10/31/21 00:00 Respiratory Rate 31 H 10/31/21 00:00 Blood Pressure 98/52 L 10/31/21 00:00 Pulse Oximetry 96 10/31/21 00:00 Temperature 98.0 F 10/31/21 00:00 Pulse Rate 89 10/31/21 02:52 Respiratory Rate 22 H 10/31/21 02:52 Blood Pressure 114/72 10/31/21 02:46 Pulse Oximetry 96 10/31/21 02:52 Medical Decision Making Vital Signs Vital Signs: Vital Signs Temperature 98.0 F 10/31/21 00:00 Pulse Rate 106 H 10/31/21 00:00 Respiratory Rate 31 H 10/31/21 00:00 Blood Pressure 98/52 L 10/31/21 00:00 Pulse Oximetry 96 10/31/21 00:00 Temperature 98.0 F 10/31/21 00:00 Pulse Rate 89 10/31/21 02:52 Respiratory Rate 22 H 10/31/21 02:52 Blood Pressure 114/72 10/31/21 02:46 Pulse Oximetry 96 10/31/21 02:52 Lab Data Lab results reviewed: Yes I reviewed the patient's lab results. Result diagrams: 10/31/21 00:19 10/31/21 00:19 Labs: Lab Results 10/31/21 10/31/21 10/31/21 Range/Units 00:19 00:19 00:19 WBC 11.4 H (4.5-10.0) K/mm3 RBC 4.24 L (4.6-6.20) M/mm3 Hgb 13.0 L (14.0-18.0) g/dL Hct 38.6 L (42.0-52.0) % MCV 91.0 (80-100) fl MCH 30.7 (26-34) pg MCHC 33.7 (32-36) g/dl RDW 13.7 (11.5-14.5) % Plt Count 315 (150-375) k/mm3 MPV 10.4 (7.4-10.4) fl Immature Gran % (Auto) 0.3 (0-0.5) % Neut % (Auto) 55.7 (45.5-73.1) % Lymph % (Auto) 35.1 (18
[2021-10-31 00:26] LABS: Basophils Percent Auto 0.2 % (0.2-1.2); Eosinophils Absolute Auto 0.1 K/mm3 (0-0.3); Eosinophils Percent Auto 1.1 % (0-4.4); Hematocrit 38.6 % (42.0-52.0); Immature Granulocyte Absolute 0.04 K/mm3 (0.00-0.031); Immature Granulocyte Percent A 0.3 % (0-0.5); Lymphocytes Absolute Auto 4.01 K/mm3 (0.9-3.2); Lymphocytes Percent Auto 35.1 % (18.3-44.2); Mean Corpuscular HGB Conc 33.7 g/dl (32-36); Mean Corpuscular Hemoglobin 30.7 pg (26-34); Mean Platelet Volume 10.4 fl (7.4-10.4); Monocytes Absolute Auto 0.9 K/mm3 (0.1-0.6); Monocytes Percent Auto 7.6 % (2.6-8.5); Neutrophils Absolute Auto 6.4 K/mm3 (1.3-6.7); Neutrophils Percent Auto 55.7 % (45.5-73.1); Platelet Count Result 315 k/mm3 (150-375); Red Blood Count 4.24 M/mm3 (4.6-6.20); Red Cell Distribution Width 13.7 % (11.5-14.5); White Blood Count 11.4 K/mm3 (4.5-10.0)
[2021-10-31 00:30] LABS: Glucose Point of Care 120 mg/dl (65-105)
[2021-10-31 00:43] LABS: Amphetamine Screen Urine Negative (Negative); Barbiturate Screen Urine Negative (Negative); Benzodiazepines Screen Urine Positive (Negative); Cannabinoid Screen Urine Negative (Negative); Cocaine Screen Urine Negative (Negative); Methadone Screen Urine Negative (Negative); Opiate Screen Urine Negative (Negative); Phencyclidine Screen Urine Negative (Negative)
[2021-10-31 00:52] LABS: Alanine Aminotransferase 26 U/L (6-50); Albumin Level 4.5 g/dL (3.5-5.1); Alkaline Phosphatase 63 U/L (38-126); Anion Gap 12 mmol/L (8-16); Aspartate Amino Transferase 40 U/L (17-59); Bilirubin,Total 0.2 mg/dL (0.2-1.3); Blood Urea Nitrogen 11 mg/dL (9-20); Calcium 8.7 mg/dL (8.4-10.2); Carbon Dioxide 26 mmol/L (22-30); Chloride 110 mmol/L (98-107); Estimated Glomerular Filt Rate > 60; Glucose 120 mg/dL (65-110); Potassium 3.6 mmol/L (3.4-5.0); Sodium 148 mmol/L (137-145)
[2021-10-31 00:54] LABS: Acetaminophen < 10 ug/mL (10-30); Salicylate < 1.0 mg/dL (2-20)
[2021-10-31] MEDS: SODIUM CHLORIDE 0.9% IV 1,000 ML 999 ML IV CONT ×2 (01:00)
[2021-10-31 01:13] LABS: Ethanol 472 mg/dL (<10)
--- NOTE | 2021-10-31 02:07 | PC.NURSE ---
Per ERP no need to contact poison control at this time.
--- NOTE | 2021-10-31 03:05 | ADMGEN ---
This patient, Antony Koch, was admitted to Intensive Care Unit-6. Patient/family oriented to hospital policies and general routines including ID bracelet, bed and alarms, visiting hours, pain management, procedures, bathroom and other care routines, personal items, smoking policy, room service/diet, and visiting hours. Information on how to activate the Rapid Response Team has been discussed. Patient/Family are encouraged to report perceived risks to care and to ask questions if they do not understand what they are told or what they should do.
[2021-10-31] MEDS: SODIUM CHLORIDE 0.9% IV 1,000 ML 125 ML IV CONT (04:27)
[2021-10-31] MEDS: HALOPERIDOL LACTATE 5 MG/ML VIAL IM (05:58)
[2021-10-31] MEDS: LORazepam INJ (*CRX) 2 MG/ML VIAL 1 MG IV PUSH (06:02)
--- NOTE | 2021-10-31 06:17 | PC.NURSE ---
Pt began to wake up around 0600. Pt was disoriented to place. Pt removing telemetry, oxygen, and nasal trumpet. Multiple attempts made by staff members to reorient pt and redirect behavior. While attempting to keep pt in bed to place soft restraints, pt made multiple attempts to strike staff. True gray called. Dr. Ortega at pt bedside. ED staff assisted in placing pt in hard restraints per MD order. While in restraints, pt continues to be belligerent towards staff members.
[2021-10-31] MEDS: dexmedeTOMIDine 400 MCG/100 ML 400 MCG/100 ML BAG IV CONT (07:50)
[2021-10-31] MEDS: LACTATED RINGERS 1,000 ML 999 ML IV CONT (08:45)
[2021-10-31] MEDS: LORazepam INJ (*CRX) 2 MG/ML VIAL IV PUSH (08:49)
[2021-10-31] MEDS: FOLIC ACID 1 MG/0.2 ML INJ IV PUSH (09:13)
[2021-10-31] MEDS: MULTIVITAMINS THERAPEUTIC TAB (*BKC) 1 TABLET PO (09:13)
[2021-10-31] MEDS: THIAMINE HCL 200 MG/2 ML VIAL 100 MG IV PUSH (09:13)
--- NOTE | 2021-10-31 09:33 | WPDCNINT ---
Assessment and Plan Assessment and plan (1) Altered mental status: Qualifiers: Altered mental status type: somnolence Qualified Code(s): R40.0 - Somnolence Code(s): R41.82 - Altered mental status, unspecified Status: Acute Assessment and Plan: Patient was brought to the ER via EMS for altered mental status. According the records patient's family stated that he was drinking alcohol and did this all him snort a material and thereafter he became increasingly somnolent and unresponsive S the time they called EMS. She received Narcan by EMS as well as the ER without any improvement -could be related to some unknown drug ingestion and/or alcohol intoxication as his alcohol levels were 472. -urine drug screen was positive for benzodiazepines (2) Alcoholic intoxication: Qualifiers: Complication of substance-induced condition: uncomplicated Qualified Code(s): F10.920 - Alcohol use, unspecified with intoxication, uncomplicated Code(s): F10.929 - Alcohol use, unspecified with intoxication, unspecified Status: Acute Assessment and Plan: Patient started on CIWA protocol, p.r.n. Ativan, Librium -patient also was agitated early this morning and was started on Precedex infusion -started on thiamine, folic acid and multivitamin -will have to watch for alcohol withdrawal and DTs -switch fluids to D5 0.45% saline as patient's sodium is 148 (3) Agitation: Code(s): R45.1 - Restlessness and agitation Status: Acute Assessment and Plan: Continue 4 point restraints for now, -will titrate Precedex infusion to keep patient calm - will try and discontinue hard restraints at some point today (4) DVT prophylaxis: Code(s): Z29.9 - Encounter for prophylactic measures, unspecified Status: Acute Assessment and Plan: SQ Lovenox Additional Plan Code status: Full code Critical care time spent: 43 minutes This dictation may have been done utilizing a voice recognition system. Attempts have been made to correct errors. However, there may be uncorrected grammatical, spelling, and recognition errors present. Due to a high probability of clinically significant, life threatening deterioration, the patient required my highest level of preparedness to intervene emergently and I personally spent this critical care time directly and personally managing the patient. This critical care time included obtaining a history; examining the patient; pulse oximetry; ordering and review of studies; arranging urgent treatment with development of a management plan; evaluation of patient's response to treatment; frequent reassessment; and discussions with other providers. It was exclusive of separately billable procedures and treating other patients and teaching time. Please see Assessment and Plan section and the rest of the note for further information on patient assessment and treatment Warping Mill Operator Consult Note Consult date: 10/31/21 Time Seen: 07:06 Reason for consult: Alcohol intoxication, altered mental status, possible drug overdose HPI: Antony Koch is a 31 year old male past medical history of opiate addiction, alcohol abuse was brought to the ED the ED on 10/31/2021 by EMS for altered mental status, possible drug overdose, alcohol intoxication. Patient was given Narcan by EMS and again in the ER without improvement. Patient was tachycardic in the ER, with stable blood pressures, afebrile. Sodium levels of 148, chloride of 110. Creatinine of 0.9, LFTs are within normal limits. Urine drug screen was positive for benzodiazepines, alcohol levels 472. Acetaminophen and salicylate levels were within normal limits. CT scan of the brain with no acute intracranial abnormalities. Patient was transferred to the ICU for closer monitoring. Early this morning at around 6:00 a.m. baltazar gray was called patient was getting agitated and pulling at leads and lines. Patient had to be given Haldol
--- NOTE | 2021-10-31 09:59 | PM.IMHP ---
H&P: HPI History of Present Illness Date/Time: 10/31/21 09:59 Chief Complaint: 31 years old male with past medical history of alcohol abuse and opioid addiction per records presented to the hospital with altered mental status patient was given Narcan without improvement at the ER patient was found to have alcohol intoxication urine drug screen is positive for cannabinoid this morning patient had episodes of agitation code purple was called and patient currently in 4 point restraints patient currently in ICU unable to provide history due to mental status change CT scan of the head was negative on admission patient has hypernatremia and leukocytosis Review of Systems Review of Systems: ROS unobtainable: Yes unobtainable due to mental status PMFSH Family History Family History Other Unknown family medical history Social History Social History Smoking status: Unknown if ever smoked Spiritual care concerns: No Meds Home Medications and Allergies Allergies Allergy/AdvReac Type Severity Reaction Status Date / Time Unable to Assess Allergy Verified 10/31/21 01:00 Vital Signs Vital Signs - 24 hr 10/31/21 00:00 10/31/21 00:10 10/31/21 01:00 Temperature 98.0 F Pulse Rate 106 H 96 Respiratory Rate 31 H 31 H 14 Blood Pressure 98/52 L 121/93 H Pulse Oximetry 96 96 96 10/31/21 02:00 10/31/21 02:03 10/31/21 02:15 Temperature Pulse Rate 98 95 94 Respiratory Rate 14 23 H 28 H Blood Pressure 127/84 123/78 Pulse Oximetry 94 95 92 10/31/21 02:16 10/31/21 02:30 10/31/21 02:31 Temperature Pulse Rate 96 99 95 Respiratory Rate 28 H 29 H 28 H Blood Pressure 127/71 Pulse Oximetry 92 91 91 10/31/21 02:44 10/31/21 02:45 10/31/21 02:46 Temperature Pulse Rate 93 94 91 Respiratory Rate 22 H 23 H 22 H Blood Pressure 114/72 Pulse Oximetry 90 90 91 10/31/21 02:47 10/31/21 02:51 10/31/21 02:52 Temperature Pulse Rate 91 89 Respiratory Rate 21 H 22 H Blood Pressure Pulse Oximetry 91 97 96 10/31/21 03:11 10/31/21 03:13 10/31/21 03:15 Temperature Pulse Rate 89 89 87 Respiratory Rate 18 19 18 Blood Pressure 128/78 Pulse Oximetry 100 100 10/31/21 03:23 10/31/21 03:34 10/31/21 04:00 Temperature 98.5 F Pulse Rate 90 85 Respiratory Rate 20 17 Blood Pressure 128/78 127/65 Pulse Oximetry 100 100 100 10/31/21 06:00 10/31/21 06:57 10/31/21 07:50 Temperature Pulse Rate 101 H 94 Respiratory Rate 14 18 Blood Pressure 105/59 L Pulse Oximetry 95 86 L 10/31/21 08:00 Temperature 98.3 F Pulse Rate 95 Respiratory Rate 20 Blood Pressure 100/48 L Pulse Oximetry 97 Exam Narrative: APPEARANCE: Sleepy lethargic does not follow commands in for restrains HEAD: normocephalic, atraumatic. EYES: PERRLA/EOMI, conjunctivae clear. NOSE: Normal no drainage EARS:TMS clear with good light reflex. THROAT: Pharynx clear, no exudate. NECK: Supple. No adenopathy, no masses. RESPIRATORY: Airway patent, respirations nonlabored. Clear to auscultation bilaterally, no rales, rhonchi, wheezing. CARDIOVASCULAR: Regular rate and rhythm without murmurs rubs or gallops. ABDOMINAL: Soft, nontender, nondistended, normal bowel sounds MUSCULOSKELETAL: Moves all extremities. Does not follow command SKIN: Warm, dry. Normal Color H&P: Results Labs Labs: Short CBC 10/31/21 Range/Units 00:19 WBC 11.4 H (4.5-10.0) K/mm3 Hgb 13.0 L (14.0-18.0) g/dL Hct 38.6 L (42.0-52.0) % Plt Count 315 (150-375) k/mm3 BMP 10/31/21 00:19 Sodium 148 H Potassium 3.6 Chloride 110 H Carbon Dioxide 26 BUN 11 Creatinine 0.90 Glucose 120 H Calcium 8.7 Liver Function 10/31/21 Range/Units 00:19 Total Bilirubin 0.2 (0.2-1.3) mg/dL AST 40 (17-59) U/L ALT 26 (6-50) U/L Alkaline Phosphatase 63 (38-126) U/L Albumin 4.5 (3.5
[2021-10-31 10:21] LABS: Creatine Kinase 204 U/L (55-170)
[2021-10-31 12:05] LABS: Glucose Point of Care 105 mg/dl (65-105)
[2021-10-31] MEDS: DEXTROSE 5%/0.45% SOD CHL 1,000 ML 125 ML IV CONT ×2 (12:05→20:05)
[2021-10-31] MEDS: chlordiazePOXIDE (*CRX) 25 MG CAPSULE 50 MG PO ×2 (12:05→18:18)
[2021-10-31] MEDS: ENOXAPARIN 40 MG/0.4 ML SYRINGE SUB-Q (12:05)
[2021-10-31 16:22] LABS: Glucose Point of Care 114 mg/dl (65-105)
[2021-10-31] MEDS: ACETAMINOPHEN 325 MG TABLET 650 MG PO (18:18)
[2021-10-31] MEDS: NICOTINE (*PBKC) 21 MG PATCH 1 PATCH TRANSDERM (18:18)
[2021-10-31] MEDS: dexmedeTOMIDine 400 MCG/100 ML 400 MCG/100 ML BAG 9.87 MCG IV CONT (18:18)
[2021-10-31 18:23] LABS: Glucose Point of Care 156 mg/dl (65-105)
[2021-11-01] VITALS (17 sets, daily range): BP systolic 122–156; BP diastolic 82–99; PULSE 58–86; RESP 14–25; TEMP 36.2–36.8; O2SAT 95–99
[2021-11-01] MEDS: dexmedeTOMIDine 400 MCG/100 ML 400 MCG/100 ML BAG 12.34 MCG IV CONT (00:24)
[2021-11-01] MEDS: chlordiazePOXIDE (*CRX) 25 MG CAPSULE 50 MG PO ×2 (00:24→05:46)
[2021-11-01] MEDS: DEXTROSE 5%/0.45% SOD CHL 1,000 ML 125 ML IV CONT (04:29)
[2021-11-01 05:01] LABS: Basophils Percent Auto 0.3 % (0.2-1.2); Eosinophils Absolute Auto 0.1 K/mm3 (0-0.3); Eosinophils Percent Auto 1.6 % (0-4.4); Hematocrit 35.9 % (42.0-52.0); Immature Granulocyte Absolute 0.01 K/mm3 (0.00-0.031); Immature Granulocyte Percent A 0.1 % (0-0.5); Lymphocytes Absolute Auto 2.57 K/mm3 (0.9-3.2); Lymphocytes Percent Auto 32.3 % (18.3-44.2); Mean Corpuscular HGB Conc 33.4 g/dl (32-36); Mean Corpuscular Hemoglobin 30.2 pg (26-34); Mean Corpuscular Volume 90.4 fl (80-100); Monocytes Absolute Auto 0.7 K/mm3 (0.1-0.6); Neutrophils Absolute Auto 4.5 K/mm3 (1.3-6.7); Neutrophils Percent Auto 56.7 % (45.5-73.1); Platelet Count Result 219 k/mm3 (150-375); Red Blood Count 3.97 M/mm3 (4.6-6.20); Red Cell Distribution Width 13.1 % (11.5-14.5)
[2021-11-01 05:13] LABS: Alanine Aminotransferase 25 U/L (6-50); Albumin Level 3.6 g/dL (3.5-5.1); Alkaline Phosphatase 62 U/L (38-126); Anion Gap 6 mmol/L (8-16); Aspartate Amino Transferase 55 U/L (17-59); Bilirubin,Total 0.5 mg/dL (0.2-1.3); Blood Urea Nitrogen 6 mg/dL (9-20); Carbon Dioxide 26 mmol/L (22-30); Chloride 104 mmol/L (98-107); Estimated CRCL calculation 155 ml/min; Estimated Glomerular Filt Rate > 60; Glucose 110 mg/dL (65-110); Lipase 40 U/L (23-300); Magnesium 1.5 mg/dL (1.6-2.3); Potassium 2.9 mmol/L (3.4-5.0); Sodium 136 mmol/L (137-145)
[2021-11-01] MEDS: POTASSIUM CHLORIDE 20 MEQ TABLET 40 MEQ PO (09:19)
[2021-11-01] MEDS: ENOXAPARIN 40 MG/0.4 ML SYRINGE SUB-Q (09:20)
[2021-11-01] MEDS: MAGNESIUM OXIDE 400 MG TABLET PO (09:20)
[2021-11-01] MEDS: FOLIC ACID 1 MG TABLET PO (09:20)
[2021-11-01] MEDS: NICOTINE (*PBKC) 21 MG PATCH 1 PATCH TRANSDERM (09:21)
[2021-11-01] MEDS: MULTIVITAMINS THERAPEUTIC TAB (*BKC) 1 TABLET PO (09:21)
[2021-11-01] MEDS: THIAMINE HCL 100 MG TABLET PO (09:25)
[2021-11-01] MEDS: LORazepam (*CRX) 1 MG TABLET PO ×2 (10:16→17:49)
[2021-11-01 11:14] LABS: Glucose Point of Care 89 mg/dl (65-105)
[2021-11-01] MEDS: chlordiazePOXIDE (*CRX) 25 MG CAPSULE PO ×2 (12:35→17:48)
--- NOTE | 2021-11-01 12:51 | WPDINTPN ---
Progress Note: A&P Assessment and Plan (1) Alcoholic intoxication: Qualifiers: Complication of substance-induced condition: uncomplicated Qualified Code(s): F10.920 - Alcohol use, unspecified with intoxication, uncomplicated Code(s): F10.929 - Alcohol use, unspecified with intoxication, unspecified Status: Acute Assessment and Plan: Patient was started on Precedex infusion p.r.n. Ativan, Librium Patient appears much more calm awake and cooperative now I have discontinued Precedex infusion I have decrease Librium and p.r.n. Ativan does Continue thiamine, folic acid and multivitamin will change him to p.o. Discontinue IV fluids Monitor for alcohol withdrawal although it appears unlikely since patient has not had any alcohol intake for many weeks and just did binge drinking the night before (2) Altered mental status: Qualifiers: Altered mental status type: somnolence Qualified Code(s): R40.0 - Somnolence Code(s): R41.82 - Altered mental status, unspecified Status: Acute Assessment and Plan: Patient was brought to the ER via EMS for altered mental status. According the records patient's family stated that he was drinking alcohol and did this all him snort a material and thereafter he became increasingly somnolent and unresponsive S the time they called EMS. She received Narcan by EMS as well as the ER without any improvement Found to be in alcohol intoxication as his alcohol levels were 472. His urine drug screen was positive for benzodiazepines but patient does have prescription of clonazepam which she takes for anxiety (3) Agitation: Code(s): R45.1 - Restlessness and agitation Status: Acute Assessment and Plan: Out of restraints as patient is now common cooperative Precedex discontinue P.r.n. Ativan (4) DVT prophylaxis: Code(s): Z29.9 - Encounter for prophylactic measures, unspecified Status: Acute Assessment and Plan: SQ Lovenox (5) Electrolyte abnormality: Code(s): E87.8 - Other disorders of electrolyte and fluid balance, not elsewhere classified Status: Acute Assessment and Plan: Replace low potassium and magnesium (6) Depression: Code(s): F32.A - Depression, unspecified Status: Acute Assessment and Plan: Will start patient on Effexor which is his home medication (7) Opioid abuse: Code(s): F11.10 - Opioid abuse, uncomplicated Status: Acute Assessment and Plan: History of opioid abuse Will start patient on his home Buprenorphine (8) Essential hypertension: Code(s): I10 - Essential (primary) hypertension Status: Acute Assessment and Plan: Resume p.o. metoprolol Additional Plan Transfer out of ICU today Code status: Full code Subjective Date/time seen: 11/01/21 12:51 Patient appears much more calm this morning. He is alert oriented x3 and denies any complaint. He states that he would like to go home. Patient denies fever, chest pain, shortness of breath, cough, nausea vomiting, abdominal pain,, diarrhea, headache or constipation. No tremors. No hallucinations. All the systems were reviewed and were negative. Patient admits to drinking significant amount of alcohol to presentation but denies using any drugs. He states that he came out of alcohol rehab only a week ago and was unable to control himself and started drinking again. He states that he was in rehab for 7 weeks. Review of Systems Review of Systems: All systems reviewed & are unremarkable except as noted in HPI and below (Subjective) Exam Narrative: General: Pt is alert awake and in NAD calm and cooperative. Not restrained Lungs/Chest: Trachea central Clear BS B/L, No crackles or wheezing. Cardiac: RRR. Normal S1 S2. No murmurs Circulation: Pedal pulses are intact and symmetrical. Abdomen: Normal bowel sounds.. Soft. NT. ND. Extremities: No clubbing, cyanosis or edema
[2021-11-01] MEDS: LORazepam INJ (*CRX) 2 MG/ML VIAL IV PUSH ×2 (15:10→20:36)
[2021-11-01 17:32] LABS: Glucose Point of Care 121 mg/dl (65-105)
[2021-11-01] MEDS: clonazePAM (*CRX) 0.5 MG TABLET 2 MG PO (18:52)
[2021-11-01] MEDS: METOPROLOL TARTRATE 50 MG TAB PO (20:35)
[2021-11-01] MEDS: ZOLPIDEM TARTRATE (*CRX) 5 MG TABLET 10 MG PO (20:36)
[2021-11-02] VITALS: BP 131/82; PULSE 81; RESP 12; TEMP 36.9; O2SAT 100
[2021-11-02 00:09] LABS: Glucose Point of Care 92 mg/dl (65-105)
[2021-11-02] MEDS: LORazepam INJ (*CRX) 2 MG/ML VIAL IV PUSH (00:46)
[2021-11-02 04:00] VITALS: BP 124/58; PULSE 82; RESP 19; TEMP 36.9; O2SAT 98
[2021-11-02] MEDS: chlordiazePOXIDE (*CRX) 25 MG CAPSULE PO (04:42)
[2021-11-02 04:43] LABS: Basophils Percent Auto 0.2 % (0.2-1.2); Eosinophils Absolute Auto 0.2 K/mm3 (0-0.3); Eosinophils Percent Auto 2.5 % (0-4.4); Hematocrit 35.8 % (42.0-52.0); Hemoglobin 12.4 g/dL (14.0-18.0); Immature Granulocyte Absolute 0.01 K/mm3 (0.00-0.031); Immature Granulocyte Percent A 0.2 % (0-0.5); Lymphocytes Absolute Auto 2.14 K/mm3 (0.9-3.2); Lymphocytes Percent Auto 33.1 % (18.3-44.2); Mean Corpuscular HGB Conc 34.6 g/dl (32-36); Mean Corpuscular Hemoglobin 30.5 pg (26-34); Mean Corpuscular Volume 88.2 fl (80-100); Mean Platelet Volume 11.5 fl (7.4-10.4); Monocytes Absolute Auto 0.7 K/mm3 (0.1-0.6); Monocytes Percent Auto 10.1 % (2.6-8.5); Neutrophils Absolute Auto 3.5 K/mm3 (1.3-6.7); Neutrophils Percent Auto 53.9 % (45.5-73.1); Platelet Count Result 259 k/mm3 (150-375); Red Blood Count 4.06 M/mm3 (4.6-6.20); Red Cell Distribution Width 13.2 % (11.5-14.5); White Blood Count 6.5 K/mm3 (4.5-10.0)
[2021-11-02 06:28] LABS: Alanine Aminotransferase 29 U/L (6-50); Albumin Level 4.2 g/dL (3.5-5.1); Alkaline Phosphatase 69 U/L (38-126); Anion Gap 8 mmol/L (8-16); Aspartate Amino Transferase 60 U/L (17-59); Bilirubin,Total 0.7 mg/dL (0.2-1.3); Blood Urea Nitrogen 7 mg/dL (9-20); Calcium 8.7 mg/dL (8.4-10.2); Carbon Dioxide 27 mmol/L (22-30); Chloride 103 mmol/L (98-107); Estimated CRCL calculation 156 ml/min; Estimated Glomerular Filt Rate > 60; Glucose 107 mg/dL (65-110); Magnesium 1.9 mg/dL (1.6-2.3); Potassium 3.5 mmol/L (3.4-5.0); Sodium 138 mmol/L (137-145)
[2021-11-02 07:47] VITALS: BP 160/98; PULSE 89; RESP 13; TEMP 36.7; O2SAT 100
[2021-11-02 08:00] VITALS: BP 160/98; PULSE 84; PULSE 89; RESP 13; O2SAT 100
[2021-11-02] MEDS: clonazePAM (*CRX) 0.5 MG TABLET 2 MG PO (08:07)
[2021-11-02] MEDS: ENOXAPARIN 40 MG/0.4 ML SYRINGE SUB-Q (08:07)
[2021-11-02] MEDS: NICOTINE (*PBKC) 21 MG PATCH 1 PATCH TRANSDERM (08:07)
[2021-11-02 08:08] VITALS: PULSE 98
[2021-11-02] MEDS: MULTIVITAMINS THERAPEUTIC TAB (*BKC) 1 TABLET PO (08:08)
[2021-11-02] MEDS: METOPROLOL TARTRATE 50 MG TAB PO (08:08)
[2021-11-02] MEDS: THIAMINE HCL 100 MG TABLET PO (08:08)
[2021-11-02] MEDS: FOLIC ACID 1 MG TABLET PO (08:08)
--- NOTE | 2021-11-02 09:10 | PM.DS ---
DS: Admitting Diagnosis Discharge Date 11/01/2021 Admitting Diagnosis alcohol withdrawal DS: Discharge Diagnosis Discharge Diagnosis (1) Alcoholic intoxication: Qualifiers: Complication of substance-induced condition: uncomplicated Qualified Code(s): F10.920 - Alcohol use, unspecified with intoxication, uncomplicated Code(s): F10.929 - Alcohol use, unspecified with intoxication, unspecified Status: Acute Assessment and Plan: Patient was started on Precedex infusion p.r.n. Ativan, Librium Patient appears much more calm awake and cooperative now I have discontinued Precedex infusion I have decrease Librium and p.r.n. Ativan does Continue thiamine, folic acid and multivitamin will change him to p.o. Discontinue IV fluids Monitor for alcohol withdrawal although it appears unlikely since patient has not had any alcohol intake for many weeks and just did binge drinking the night before (2) Altered mental status: Qualifiers: Altered mental status type: somnolence Qualified Code(s): R40.0 - Somnolence Code(s): R41.82 - Altered mental status, unspecified Status: Acute Assessment and Plan: Patient was brought to the ER via EMS for altered mental status. According the records patient's family stated that he was drinking alcohol and did this all him snort a material and thereafter he became increasingly somnolent and unresponsive S the time they called EMS. She received Narcan by EMS as well as the ER without any improvement Found to be in alcohol intoxication as his alcohol levels were 472. His urine drug screen was positive for benzodiazepines but patient does have prescription of clonazepam which she takes for anxiety (3) Agitation: Code(s): R45.1 - Restlessness and agitation Status: Acute Assessment and Plan: Out of restraints as patient is now common cooperative Precedex discontinue P.r.n. Ativan (4) DVT prophylaxis: Code(s): Z29.9 - Encounter for prophylactic measures, unspecified Status: Acute Assessment and Plan: SQ Lovenox (5) Electrolyte abnormality: Code(s): E87.8 - Other disorders of electrolyte and fluid balance, not elsewhere classified Status: Acute Assessment and Plan: Replace low potassium and magnesium (6) Depression: Code(s): F32.A - Depression, unspecified Status: Acute Assessment and Plan: Will start patient on Effexor which is his home medication (7) Opioid abuse: Code(s): F11.10 - Opioid abuse, uncomplicated Status: Acute Assessment and Plan: History of opioid abuse Will start patient on his home Buprenorphine (8) Essential hypertension: Code(s): I10 - Essential (primary) hypertension Status: Acute Assessment and Plan: Resume p.o. metoprolol DS: Summary Hospital Course Reason for hospitalization: Chief Complaint: 31 years old male with past medical history of alcohol abuse and opioid addiction per records presented to the hospital with altered mental status patient was given Narcan without improvement at the ER patient was found to have alcohol intoxication urine drug screen is positive for cannabinoid this morning patient had episodes of agitation code purple was called and patient currently in 4 point restraints patient currently in ICU unable to provide history due to mental status change CT scan of the head was negative on admission patient has hypernatremia and leukocytosis Hospital Course: patient with alcohol withdrawal was quite agitated and placed on Precedex today patient is much more calm off Precedex was seen by l tacker and okay to be discharged, during my examination patient appears to be doing well and does not appear to be an alcohol withdrawal, I called patient's mother and she will send his father to roller picker the patient, and instructed to avoid alcohol and seek help with his addiction Status at Discharge Functional
== END 2021-11-02 09:41 | disposition home or self-care (01) | DRG 897 ==
LOC: ANHED 10-31 02:18 → ANHICU 10-31 03:17
PROVIDERS: Internal Medicine; Admitting Provider Internal Medicine; Emergency Provider Emergency Medicine; PCP Internal Medicine; Visit Provider Family Medicine
DX: F10.129 Alcohol abuse with intoxication, unspecified (principal); E87.0 Hyperosmolality and hypernatremia; Y90.8 Blood alcohol level of 240 mg/100 ml or more; G31.2 Degeneration of nervous system due to alcohol; F11.10 Opioid abuse, uncomplicated; E87.8 Other disorders of electrolyte and fluid balance, not elsewhere classified; R45.1 Restlessness and agitation; F32.A Depression, unspecified; I10 Essential (primary) hypertension; E86.0 Dehydration; D72.829 Elevated white blood cell count, unspecified
CPT/HCPCS: 36415; 51702; 70450; 80053; 80307; 82550; 82948; 83690; 83735; 84100; 85025; 96361; 96365; 96366; 96372; 96374; 96375; 96376; 99285; A9270; G0378; J1630; J1650; J2060; J2310; J3411; J7030; J7120

== ENCOUNTER 2022-05-19 12:00 | Emergency (ER) | payer OTHER, SELFPAY ==
--- NOTE | ~2022-05-19 | CT_ITS ---
EXAMINATION: CT soft tissue neck w con DATE: 05/19/2022 15:02 INDICATION: Left-sided facial/jaw swelling TECHNIQUE: Computed tomography (CT) of the neck was performed with 75 mL Omnipaque-350 intravenous co ntrast. Automated exposure control and iterative reconstruction technique were employed. The dose-timo gth product was 551.63 mGy-cm. COMPARISON: None FINDINGS: Orbits are normal. The paranasal sinuses are clear. Visualized sinuses and mastoid aircells are well aerated. Submandibular and parotid glands are symmetric. Thyroid gland is unremarkable. There are sev eral dental caries. In particular there are dental caries at the left mandibular first molar and firs t bicuspid, teeth numbers #19 and #21 with associated subtle periapical lucencies and suggestion of t iny lucent sinus tract extending across the lateral alveolar cortices. There is an approximately 2.0 x 1.5 x 0.7 cm low attenuation region abutting the bone suspicious without a well-defined peripherall y enhancing wall but nonetheless suspicious for phlegmonous change and likely early abscess formation . There is overlying subcutaneous edema. Asymmetric likely reactive left submandibular and jugular ch ain lymphadenopathy. No masses identified. The vasculature is patent and normal in caliber. Airway i s unremarkable. Superior mediastinum is unremarkable. Visualized sinuses and mastoid aircells are wel l aerated.Lung apices are normal. Cervical spine is unremarkable. IMPRESSION: 1. Fullness change versus early abscess formation along the lateral left mandible which appears be as sociated with dental caries at the left mandibular first premolar and first molar. 2. Likely reactive left submandibular and jugular chain lymphadenopathy. Reviewed, dictated and finalized at location A. EASING WHEEL OPERATOR IMPRESSION: 1. Fullness change versus early abscess formation along the lateral left mandib le which appears be associated with dental caries at the left mandibular first premolar and first molar. 2. Likely reactive left submandibular and jugular chain lymphadenopathy.
[2022-05-19 12:15] VITALS: BP 128/83; PULSE 94; RESP 16; TEMP 36.4; O2SAT 97
--- NOTE | 2022-05-19 14:29 | ED.DENTAL ---
HPI - Dental/Oral General Chief complaint: Dental/Oral Stated complaint: dental pain Time Seen by Provider: 05/19/22 14:16 History of Present Illness HPI Narrative: Patient is a 31-year-old male presenting with jaw swelling. Patient states that he was seen by a dentist about a week ago and started on antibiotics for an infected tooth. States that he has been taking the antibiotics as prescribed. Unfortunately, his left jaw swelling has continued to worsen. States that today it started draining pus. States he has been unable to eat due to pain. Denies difficulty swallowing or breathing. States that he was unable to get in with a dentist today so he came here for evaluation. He denies fevers or chills, headache, chest pain, shortness of breath, cough, abdominal pain, vomiting, rashes. Related Data Home Medications Medication Instructions Recorded Confirmed aripiprazole 5 mg tablet (Abilify) 5 mg PO DAILY 08/08/21 01/05/22 fluoxetine 20 mg tablet 20 mg PO DAILY 08/08/21 01/05/22 buprenorphine HCl 8 mg sublingual 8 mg sublingual TID 11/01/21 01/05/22 tablet clonazepam 2 mg tablet 2 mg PO TID 11/01/21 01/05/22 metoprolol tartrate 100 mg tablet 100 mg PO QID 11/01/21 01/05/22 zolpidem 10 mg tablet 10 mg PO HS 11/01/21 01/05/22 Allergies Allergy/AdvReac Type Severity Reaction Status Date / Time No Known Allergies Allergy Verified 05/19/22 12:17 Review of Systems Review of Systems: All systems reviewed & are unremarkable except as noted in HPI and below PMFSH Past Medical History Medical History Alcoholic intoxication Anxiety Benzodiazepine intoxication Depression H/O: HTN (hypertension) Opioid abuse Substance abuse Surgical History Surgical History No significant past surgical history Family History Family History Mother Patient's mother is in good health Father Patient's father is in good health Sibling Patient's brother is in good health Other Unknown family medical history Social History Social History Smoking packs per day: 1 Smoking cigarettes per day: 20.0 Years smoked: 12 Smoking pack-years: 12.00 Smoking status: Current every day smoker Tobacco type: cigarettes Second hand tobacco smoke exposure: No Alcohol intake: current Alcohol use details: daily Substance use: current Substance use type: opiates Gender identity (if verbalized by the patient): Male Spiritual care concerns: No Exam Narrative: GENERAL: Well-appearing, well-nourished, and in no acute distress. HEAD: Normocephalic, atraumatic. Left-sided jaw swelling, there is a dental abscess lateral to teeth 18 through 20, poor dentition throughout EYES: PERRLA and EOMI. ENT: Nares clear, no rhinorrhea or epistaxis. Mucous membranes moist. NECK: Supple. CHEST: Clear to auscultation. No respiratory distress. HEART: Regular rate and rhythm. No murmur heard. Normal peripheral pulses. ABDOMEN: Soft, nontender, nondistended, normal active bowel sounds. EXTREMITIES: Normal range of motion. No edema. SKIN: Warm, dry, no rash. NEURO: No focal deficits. Alert and oriented x3. PSYCH: Normal mood and affect. Course Vital Signs Vital signs: Vital Signs Temperature 97.5 F L 05/19/22 12:15 Pulse Rate 94 05/19/22 12:15 Respiratory Rate 16 05/19/22 12:15 Blood Pressure 128/83 05/19/22 12:15 Pulse Oximetry 97 05/19/22 12:15 Temperature 97.5 F L 05/19/22 12:15 Pulse Rate 89 05/19/22 17:00 Respiratory Rate 16 05/19/22 17:00 Blood Pressure 138/74 05/19/22 17:00 Pulse Oximetry 98 05/19/22 17:00 MDM - Dental/Oral MDM Narrative Medical decision making narrative: Patient is a 31-year-old male presenting with worsening jaw swelling despite taking an
[2022-05-19] MEDS: SODIUM CHLORIDE 0.9% IV 1,000 ML 999 ML IV CONT (14:42)
[2022-05-19] MEDS: AMPICILLIN SULB 3 GM/NS 100 ML 3 GM/100 ML VIAL IVPB (14:43)
[2022-05-19 14:53] LABS: Basophils Absolute Auto 0.1 K/mm3 (0.0-0.1); Basophils Percent Auto 0.6 % (0.2-1.2); Eosinophils Absolute Auto 0.1 K/mm3 (0-0.3); Eosinophils Percent Auto 1.3 % (0-4.4); Hematocrit 44.7 % (42.0-52.0); Hemoglobin 14.6 g/dL (14.0-18.0); Immature Granulocyte Absolute 0.03 K/mm3 (0.00-0.031); Immature Granulocyte Percent A 0.4 % (0-0.5); Lymphocytes Absolute Auto 2.08 K/mm3 (0.9-3.2); Lymphocytes Percent Auto 24.6 % (18.3-44.2); Mean Corpuscular HGB Conc 32.7 g/dl (32-36); Mean Corpuscular Hemoglobin 30.6 pg (26-34); Mean Corpuscular Volume 93.7 fl (80-100); Mean Platelet Volume 10.1 fl (7.4-10.4); Monocytes Absolute Auto 0.8 K/mm3 (0.1-0.6); Monocytes Percent Auto 9.9 % (2.6-8.5); Neutrophils Absolute Auto 5.4 K/mm3 (1.3-6.7); Neutrophils Percent Auto 63.2 % (45.5-73.1); Platelet Count Result 297 k/mm3 (150-375); Red Blood Count 4.77 M/mm3 (4.6-6.20); Red Cell Distribution Width 14.3 % (11.5-14.5); White Blood Count 8.5 K/mm3 (4.5-10.0)
[2022-05-19 14:55] LABS: Estimated CRCL calculation 86 ml/min; Estimated Glomerular Filt Rate > 60
[2022-05-19 15:15] LABS: Alanine Aminotransferase 346 U/L (6-50); Albumin Level 4.8 g/dL (3.5-5.1); Alkaline Phosphatase 99 U/L (38-126); Anion Gap 12 mmol/L (8-16); Aspartate Amino Transferase 195 U/L (17-59); Bilirubin,Total 0.2 mg/dL (0.2-1.3); Blood Urea Nitrogen 11 mg/dL (9-20); Calcium 9.2 mg/dL (8.4-10.2); Carbon Dioxide 29 mmol/L (22-30); Chloride 101 mmol/L (98-107); Estimated CRCL calculation 113 ml/min; Estimated Glomerular Filt Rate > 60; Glucose 107 mg/dL (65-110); Potassium 4.4 mmol/L (3.4-5.0); Sodium 142 mmol/L (137-145)
[2022-05-19] MEDS: KETOROLAC 15 MG/ML VIAL (*BKC) IV PUSH (15:37)
[2022-05-19 17:00] VITALS: BP 138/74; PULSE 89; RESP 16; O2SAT 98
== END 2022-05-19 16:35 | disposition home or self-care (01) ==
PROVIDERS: Emergency Provider Emergency Medicine; PCP Physician Assistant
DX: K02.9 Dental caries, unspecified (principal); K04.7 Periapical abscess without sinus; I10 Essential (primary) hypertension; F41.9 Anxiety disorder, unspecified; F32.A Depression, unspecified; F17.210 Nicotine dependence, cigarettes, uncomplicated
CPT/HCPCS: 36415; 70491; 80053; 85025; 96365; 96367; 96375; 99284; J0131; J0295; J1885; J7030; Q9967

== ENCOUNTER 2022-06-05 05:46 | Observation (INO) | payer OTHER, SELFPAY ==
[2022-06-05] VITALS (9 sets, daily range): BP systolic 131–160; BP diastolic 85–98; PULSE 68–96; RESP 12–20; TEMP 36.2–36.6; O2SAT 96–100
--- NOTE | ~2022-06-05 | XR_ITS ---
EXAMINATION: XR chest 2V DATE: 06/05/2022 07:04 INDICATION: Epigastric abdominal pain. Nausea and vomiting. TECHNIQUE: Frontal and lateral views of the chest were obtained. COMPARISON: Chest single view 08/30/2021, CT abdomen and pelvis 06/05/2022 FINDINGS: There is no pneumonia, pleural effusion, or pneumothorax. The heart size is normal. IMPRESSION: 1. No acute cardiopulmonary disease. Reviewed, dictated and finalized at location A. TEAM MEMBER
--- NOTE | ~2022-06-05 | US_ITS ---
EXAMINATION: US abdomen limited DATE: 06/05/2022 15:42 INDICATION: RUQ pain TECHNIQUE: Multiple grayscale and Doppler ultrasound images of limited portions of the abdomen were o btained. COMPARISON: 06/05/2022. FINDINGS: The visualized portions of the pancreas are normal. The liver is enlarged with increased ec hogenicity and heterogeneous echotexture. No surface nodularity. Normal hepatopetal flow in the main portal vein. Multiple mobile gallstones. Nonmobile gallstones present in the gallbladder neck. No wal l thickening or pericholecystic fluid. The common bile duct measures 8 mm. Positive sonographic Nahum y sign. IMPRESSION: Hepatomegaly. Echogenic liver, most commonly due to steatosis but also can be seen with hepatitis and fibrosis. Cholelithiasis, positive sonographic Damian sign, and extrahepatic bile duct dilation. The se findings could be seen with choledocholithiasis. Consider evaluation with MRCP. Reviewed, dictated and finalized at location K. ESSING SPEC IMPRESSION: Hepatomegaly. Echogenic liver, most commonly due to steatosis but also can be s een with hepatitis and fibrosis. Cholelithiasis, positive sonographic Damian si gn, and extrahepatic bile duct dilation. These findings could be seen with chol edocholithiasis. Consider evaluation with MRCP.
--- NOTE | ~2022-06-05 | CT_ITS ---
EXAMINATION: CT abdomen pelvis w con DATE: 06/05/2022 06:58 INDICATION: Abdominal pain. Nausea and vomiting. TECHNIQUE: Computed tomography (CT) of the abdomen and pelvis was performed with 100 mL Omnipaque 350 intravenous contrast. Automated exposure control and iterative reconstruction technique were employe d. The dose-length product was 810.20 mGy-cm. COMPARISON: None. FINDINGS: The visualized portions of the lung bases demonstrate mild tree-in-bud opacities in right l ower lobe and lingula. No pleural effusion. The heart size is normal. No pericardial effusion. There is diffuse hepatic steatosis. The gallbladder is distended. The spleen, pancreas, adrenal glands, and kidneys are normal. The bladder is distended. There are no dilated loops of bowel. The appendix is n ormal. There are no pathologically enlarged lymph nodes. There is no free intraperitoneal fluid. Ther e is mild thoracolumbar spondylosis. IMPRESSION: 1. Gallbladder distention, which may secondary to fasting or acute cholecystitis. Correlate with phys ical exam. 2. Diffuse hepatic steatosis. 3. Mild tree-in-bud opacities in right lower lobe and lingula, consistent with inflammation versus in fection. Reviewed, dictated and finalized at location A. ICE LEARNING COORDINATOR IMPRESSION: 1. Gallbladder distention, which may secondary to fasting or acute cholecystiti s. Correlate with physical exam. 2. Diffuse hepatic steatosis. 3. Mild tree-in-bud opacities in right lower lobe and lingula, consistent with inflammation versus infection.
--- NOTE | ~2022-06-05 | XR_ITS ---
EXAMINATION: XR cholangiogram surg 1st inj DATE: 06/06/2022 13:30 SMASHER HAND INDICATION: CHOLECYSTECTOMY . TECHNIQUE: A cine clips consisting of 149 fluoroscopic images of the right upper quadrant were obtain ed during intraoperative cholangiography performed by the surgeon. I was not present in the operating room. Fluoroscopy exposure time was 22.4 seconds. Air Kerma 11.22 mGy. DAP 0.17117 mGym2. COMPARISON: CT and ultrasound 06/05/2022. FINDINGS: Laparoscopic instruments over the right upper quadrant. Cannulation of the cystic duct with contrast filling the biliary ducts and small portion of the gallbladder. Mild extrahepatic bile duct dilation and irregular narrowing of the distal common bile duct which could reflect mucosal edema/muscle spasm as can occur with a recently passed stone. No radiopaque filling defect. No extravasation. Contrast fills the duodenum. IMPRESSION: Fluoroscopic documentation of intraoperative cholangiography. Please refer to the operative note for complete procedural details. Results discussed telephonically between Dr. Swartz and Dr. Bryant at the time of surgery. Reviewed, dictated and finalized at location K. HER HAND IMPRESSION: Fluoroscopic documentation of intraoperative cholangiography. Please refer to t ari operative note for complete procedural details. Results discussed telephonically between Dr. Swartz and Dr. Bryant at the me of surgery.
--- NOTE | 2022-06-05 05:52 | ECG_ITS ---
Measurements Intervals [place] Rate: 65 P: 50 WV: 169 QRS: 72 QRSD: 103 T: 30 QT: 405 QTc: 423 Interpretive Statements SINUS RHYTHM NORMAL ECG NO PREVIOUS ECG AVAILABLE FOR COMPARISON Electronically Signed On 06-05-2022 15:03:53 WORKDAY SENIOR ASSOCIATE by Johnnie Gorman M.D.
--- NOTE | 2022-06-05 05:57 | ED.CHESTPAIN ---
HPI - Chest Pain General Chief Complaint: Chest Pain <Willie Hurst DO - Last Filed: 06/05/22 07:14> Stated Complaint: CP x 1 week <Willie Hurst DO - Last Filed: 06/05/22 07:14> Time Seen by Provider: 06/05/22 05:56 <Willie Hurst DO - Last Filed: 06/05/22 07:14> Source: RN notes reviewed <Willie Hurst DO - Last Filed: 06/05/22 07:14> History of Present Illness HPI narrative: Patient presents emergency room from home for chest pain abdominal pain. Patient states symptoms been ongoing for the past 1 week. Patient states he is had pain across the bilateral lower chest as well as the upper abdomen described as aching in nature. States has been associated with a cough that is been productive of yellow sputum also notes numerous episodes of nausea and vomiting denies any fevers or chills states he has had a mild sore throat but denies any rhinorrhea denies any diarrhea states he has not take any medications for the symptoms <Willie Hurst DO - Last Filed: 06/05/22 07:14> Patient presents to the emergency room from home for chest pain abdominal pain. Patient states symptoms been ongoing for the past 1 week. Patient states he is had pain across the bilateral lower chest as well as the upper abdomen described as aching in nature. States has been associated with a cough that is been productive of yellow sputum also notes numerous episodes of nausea and vomiting denies any fevers or chills states he has had a mild sore throat but denies any rhinorrhea denies any diarrhea states he has not take any medications for the symptoms <Mo Whitney MD - Last Filed: 06/05/22 15:06> Related Data Home Medications: Home Medications Medication Instructions Recorded Confirmed clonazepam 2 mg tablet 2 mg PO TID 11/01/21 06/05/22 metoprolol tartrate 100 mg tablet 100 mg PO QID 11/01/21 06/05/22 zolpidem 10 mg tablet 10 mg PO HS 11/01/21 06/05/22 gabapentin 400 mg capsule 400 mg PO TID 06/05/22 06/05/22 omeprazole 20 mg capsule,delayed 20 mg PO DAILY 06/05/22 06/05/22 release venlafaxine 150 mg 150 mg PO DAILY 06/05/22 06/05/22 capsule,extended release 24 hr <Willie Hurst DO - Last Filed: 06/05/22 07:14> Allergies/Adverse Reactions: Allergies Allergy/AdvReac Type Severity Reaction Status Date / Time No Known Allergies Allergy Verified 06/05/22 05:53 <Willie Hurst DO - Last Filed: 06/05/22 07:14> Review of Systems Review of Systems: Gen.: Denies fevers or chills Eyes: Denies eye pain or visual change ENT: Reports sore throat Respiratory: Reports cough CV: Reports chest pain GI: Reports abdominal pain nausea vomiting Musculoskeletal: Denies back pain or muscle pain Neuro: Denies numbness, tingling, weakness or focal weakness Skin: Denies rash Except as documented, all other systems reviewed and negative <Willie Hurst DO - Last Filed: 06/05/22 07:14> FOR[facility]LY [facility], [facility] Past Medical History Medical History: Medical History (Updated 06/05/22 @ 15:06 by Mo Whitney MD) Alcoholic intoxication Anxiety Benzodiazepine intoxication Depression H/O: HTN (hypertension) Opioid abuse Substance abuse <Willie Hurst DO - Last Filed: 06/05/22 07:14> Surgical History Surgical History: Surgical History No significant past surgical history <Willie Hurst DO - Last Filed: 06/05/22 07:14> Family History Family History: Family History Mother Patient's mother is in good health Father Patient's father is in good health Sibling Patient's brother is in good health Other Unknown family medical history <Willie Hurst DO - Last Filed: 06/05/22 07:14> Social History Social History: Social History (Updated 06/05/22 @ 12:09 by Lexa Bryant DO) Smoking packs per day: 1 Smoking cigarettes per day
[2022-06-05] MEDS: SODIUM CHLORIDE 0.9% IV 1,000 ML 999 ML IV CONT ×2 (06:04→07:16)
[2022-06-05] MEDS: ONDANSETRON INJ 4 MG/2 ML VIAL IV PUSH ×4 (06:06→16:18)
[2022-06-05] MEDS: FAMOTIDINE 20 MG/2 ML VIAL IV PUSH (06:06)
[2022-06-05 06:22] LABS: Basophils Absolute Auto 0.1 K/mm3 (0.0-0.1); Basophils Percent Auto 0.9 % (0.2-1.2); Eosinophils Absolute Auto 0.1 K/mm3 (0-0.3); Eosinophils Percent Auto 0.9 % (0-4.4); Hematocrit 45.6 % (42.0-52.0); Hemoglobin 15.6 g/dL (14.0-18.0); Immature Granulocyte Absolute 0.28 K/mm3 (0.00-0.031); Immature Granulocyte Percent A 3.4 % (0-0.5); Lymphocytes Percent Auto 23.4 % (18.3-44.2); Mean Corpuscular HGB Conc 34.2 g/dl (32-36); Mean Corpuscular Hemoglobin 30.1 pg (26-34); Mean Platelet Volume 9.4 fl (7.4-10.4); Monocytes Absolute Auto 0.6 K/mm3 (0.1-0.6); Monocytes Percent Auto 7.4 % (2.6-8.5); Neutrophils Absolute Auto 5.2 K/mm3 (1.3-6.7); Platelet Count Result 156 k/mm3 (150-375); Red Blood Count 5.18 M/mm3 (4.6-6.20); Red Cell Distribution Width 14.8 % (11.5-14.5); White Blood Count 8.1 K/mm3 (4.5-10.0)
[2022-06-05 06:33] LABS: Prothrombin Time 12.8 Seconds (11.1-14.7)
[2022-06-05 06:34] LABS: Partial Thromboplastin Time 30.9 SECONDS (22.3-36.8)
[2022-06-05 06:34] LABS: Alanine Aminotransferase 156 U/L (6-50); Albumin Level 4.8 g/dL (3.5-5.1); Alkaline Phosphatase 251 U/L (38-126); Anion Gap 16 mmol/L (8-16); Aspartate Amino Transferase 296 U/L (17-59); Bilirubin,Total 0.7 mg/dL (0.2-1.3); Blood Urea Nitrogen 13 mg/dL (9-20); Calcium 8.9 mg/dL (8.4-10.2); Carbon Dioxide 32 mmol/L (22-30); Chloride 92 mmol/L (98-107); Estimated CRCL calculation 113 ml/min; Estimated Glomerular Filt Rate > 60; Glucose 96 mg/dL (65-110); Lipase 166 U/L (23-300); Potassium 3.7 mmol/L (3.4-5.0); Sodium 140 mmol/L (137-145)
[2022-06-05 06:36] LABS: Magnesium 1.9 mg/dL (1.6-2.3)
[2022-06-05 06:45] LABS: Troponin I < 0.012 ng/mL (0.000-0.034)
[2022-06-05 06:57] LABS: Influenza A QL RT-PCR Negative (Negative); Influenza B QL RT-PCR Negative (Negative); SARS-CoV-2 RNA PCR Negative
--- NOTE | 2022-06-05 07:33 | PC.NURSE ---
Patient states he is unable to urinate at this time.
[2022-06-05 07:55] LABS: Ethanol 236 mg/dL (<10)
[2022-06-05] MEDS: LORazepam INJ (*CRX) 2 MG/ML VIAL 1 MG IV PUSH (08:08)
--- NOTE | 2022-06-05 08:35 | PC.NURSE ---
Antibiotics to be started after blood cultures are drawn.
[2022-06-05 08:51] LABS: Appearance Urine Clear (Clear); Bilirubin Urine 1+ (Negative); Blood Urine Negative (Negative); Color Urine Yellow (Yellow); Glucose Urine UA Negative (Negative); Ketones Urine 4+ mg/dL (Negative); Leukocyte Esterase Ur Negative LEU/UL (Negative); Nitrate Urine Negative (Negative); Protein Urine 2+ mg/dL (Negative); Specific Grav Ur 1.015 (1.001-1.035); pH Urine 5.5 (5.0-9.0)
[2022-06-05 09:03] LABS: Mucus Urine Rare /lpf; RBC Urine 0-2 /hpf (0-2); Squamous Epithelial Cell Urine Rare /hpf (Few); WBC Urine 0-3 /hpf
[2022-06-05 09:05] LABS: Add Urine Microscopic? YES
[2022-06-05 09:34] LABS: Troponin I < 0.012 ng/mL (0.000-0.034)
[2022-06-05] MEDS: HYDROmorphone HCL INJ (*CRX) 1 MG/ML SYR 0.5 MG IV PUSH (09:48)
[2022-06-05] MEDS: SODIUM CHLORIDE 0.9% IV 1,000 ML 125 ML IV CONT ×2 (09:52→20:06)
--- NOTE | 2022-06-05 10:54 | ADMGEN ---
This patient, Antony Oswald, was admitted to 3 [facility] Surg Room 319-01. Patient/family oriented to hospital policies and general routines including ID bracelet, bed and alarms, visiting hours, pain management, procedures, bathroom and other care routines, personal items, smoking policy, room service/diet, and visiting hours. Information on how to activate the Rapid Response Team has been discussed. Patient/Family are encouraged to report perceived risks to care and to ask questions if they do not understand what they are told or what they should do.
[2022-06-05] MEDS: HYDROmorphone HCL INJ (*CRX) 1 MG/ML SYR IV PUSH ×5 (11:39→22:18)
--- NOTE | 2022-06-05 12:03 | PM.IMHP ---
H&P: HPI History of Present Illness Date/Time: 06/05/22 12:03 Chief Complaint: Epigastric pain Narrative: This is a 31-year-old man who presented to the emergency department this morning with epigastric and right upper quadrant pain that started about 1 week ago. He states that the last meal he ate before the pain started was pizza. He had never experienced pain like this with any meals in the past. He was also experiencing a lot of nausea and vomiting and states that he has not been able to keep anything down for the last week. He denies any change in bowel habits. He has had some cough and congestion for the past week as well, and occasionally feels short of breath when he is coughing. He denies any fevers or chills. He denies any change in urine color. He does have a history of alcohol use but states he has not been able to drink much alcohol lately either. He states that he typically drinks 1-2 pt of whiskey daily. He has not had any other prior known liver problems and denies prior history of hepatitis. COVID and flu swabs were negative in the emergency department. Review of Systems Review of Systems: All systems reviewed & are unremarkable except as noted in HPI and below Constitutional: Constitutional: Denies chills and Denies fever(s) Eyes: Eyes: Denies change in vision ENT: Denies hearing loss, Denies neck pain and Denies sore throat Cardiovascular: Cardiovascular: Denies chest pain and Reports dyspnea Respiratory: Respiratory: Reports cough, Reports dyspnea and Denies wheezing Gastrointestinal: Gastrointestinal: Reports as per HPI Genitourinary: Genitourinary: Denies hematuria and Denies dysuria Musculoskeletal: Musculoskeletal: Denies arthralgias, Denies joint swelling and Denies neck pain Allergic/Immunologic: Allergic/Immunologic: Denies wheezing [facility] Past Medical History Medical History (Updated 06/05/22 @ 12:12 by Lexa Bryant DO) Alcoholic intoxication Anxiety Benzodiazepine intoxication Depression H/O: HTN (hypertension) Opioid abuse Substance abuse Surgical History Surgical History No significant past surgical history Family History Family History Mother Patient's mother is in good health Father Patient's father is in good health Sibling Patient's brother is in good health Other Unknown family medical history Social History Social History (Updated 06/05/22 @ 12:09 by Lexa Bryant DO) Smoking packs per day: 1 Smoking cigarettes per day: 20.0 Years smoked: 12 Smoking pack-years: 12.00 Smoking status: Current every day smoker Tobacco type: cigarettes Second hand tobacco smoke exposure: No Alcohol intake: current Alcohol use details: 1-2 pt of whiskey per day Substance use: current Substance use type: opiates Gender identity (if verbalized by the patient): Male Spiritual care concerns: No Meds Home Medications and Allergies Home Medications Medication Instructions Recorded Confirmed Type buspirone 15 mg tablet 15 mg PO TID #90 tabs 09/07/19 06/05/22 Rx clonazepam 2 mg tablet 2 mg PO TID 11/01/21 06/05/22 History metoprolol tartrate 100 mg tablet 100 mg PO QID 11/01/21 06/05/22 History zolpidem 10 mg tablet 10 mg PO HS 11/01/21 06/05/22 History clonidine HCl 0.2 mg tablet 0.2 mg PO TID #270 tabs 04/19/22 06/05/22 Rx gabapentin 400 mg capsule 400 mg PO TID 06/05/22 06/05/22 History omeprazole 20 mg capsule,delayed 20 mg PO DAILY 06/05/22 06/05/22 History release venlafaxine 150 mg 150 mg PO DAILY 06/05/22 06/05/22 History capsule,extended release 24 hr Allergies Allergy/AdvReac Type Severity Reaction Status Date / Time No Known Allergies Allergy Verified 06/05/22 05:53 Vital Signs Vital Signs - 24 hr 06/05/22 05:49 06/05/22 06:13 06/05/22 07:33 Temperature 36.6 C 36.6 C Pulse Rate 7
[2022-06-05] MEDS: LORazepam INJ (*CRX) 2 MG/ML VIAL 0.5 MG IV PUSH ×2 (12:10→20:06)
[2022-06-05 12:48] LABS: Troponin I < 0.012 ng/mL (0.000-0.034)
[2022-06-05] MEDS: PROMETHAZINE HCL 25 MG/ML AMPUL 12.5 MG IV PUSH (14:37)
[2022-06-05] MEDS: busPIRone HCL 5 MG TABLET 15 MG PO (16:16)
[2022-06-05] MEDS: cloNIDine HCL 0.2 MG TABLET PO (16:17)
[2022-06-05] MEDS: GABAPENTIN 400 MG CAPSULE PO (16:17)
[2022-06-05] MEDS: clonazePAM (*CRX) 0.5 MG TABLET 2 MG PO (16:17)
[2022-06-05] MEDS: METOPROLOL TARTRATE 50 MG TAB 100 MG PO ×2 (16:17→20:06)
[2022-06-05] MEDS: ZOLPIDEM TARTRATE (*CRX) 5 MG TABLET 10 MG PO (20:06)
[2022-06-06] VITALS (7 sets, daily range): BP systolic 140–157; BP diastolic 89–100; PULSE 67–98; RESP 12–20; TEMP 36.1–36.7; O2SAT 94–100
[2022-06-06] MEDS: LORazepam INJ (*CRX) 2 MG/ML VIAL 0.5 MG IV PUSH ×2 (03:12→10:39)
[2022-06-06] MEDS: HYDROmorphone HCL INJ (*CRX) 1 MG/ML SYR IV PUSH ×2 (03:12→09:14)
[2022-06-06] MEDS: SODIUM CHLORIDE 0.9% IV 1,000 ML 125 ML IV CONT (03:13)
[2022-06-06 07:24] LABS: Alanine Aminotransferase 134 U/L (6-50); Albumin Level 4.1 g/dL (3.5-5.1); Alkaline Phosphatase 185 U/L (38-126); Anion Gap 14 mmol/L (8-16); Aspartate Amino Transferase 276 U/L (17-59); Bilirubin,Total 1.1 mg/dL (0.2-1.3); Blood Urea Nitrogen 5 mg/dL (9-20); Calcium 8.3 mg/dL (8.4-10.2); Carbon Dioxide 21 mmol/L (22-30); Chloride 100 mmol/L (98-107); Estimated CRCL calculation 143 ml/min; Estimated Glomerular Filt Rate > 60; Glucose 80 mg/dL (65-110); Lipase 499 U/L (23-300); Potassium 4.2 mmol/L (3.4-5.0); Sodium 135 mmol/L (137-145)
[2022-06-06 07:54] LABS: Hepatitis B Surface Antigen Negative (Negative)
[2022-06-06 08:00] LABS: HAV RESULT Negative (Negative); Hepatitis B Core IgM Result Negative (Negative)
[2022-06-06 08:12] LABS: Hepatitis C Virus Antibody Negative (Negative)
[2022-06-06 08:58] LABS: Hematocrit 43.1 % (42.0-52.0); Hemoglobin 14.3 g/dL (14.0-18.0); Immature Platelet Fraction Pct 3.6 % (0.9-11.2); Mean Corpuscular HGB Conc 33.2 g/dl (32-36); Mean Corpuscular Volume 90.5 fl (80-100); Mean Platelet Volume 9.8 fl (7.4-10.4); Platelet Count Result 81 k/mm3 (150-375); Red Blood Count 4.76 M/mm3 (4.6-6.20); Red Cell Distribution Width 14.9 % (11.5-14.5); White Blood Count 6.2 K/mm3 (4.5-10.0)
[2022-06-06 09:11] LABS: Ethanol < 10 mg/dL (<10)
--- NOTE | 2022-06-06 12:14 | WPDHPUPDATE1 ---
History and Physical Update Update Date/Time: 06/06/22 12:14 History and Physical has been reviewed, including an updated exam of the patient. Since his liver enzymes are elevated and u/s showed possible dilated duct, will proceed with lap richy with intraoperative cholangiogram. Risks, benefits, and alternatives have been discussed and questions answered. Patient agrees to proceed with procedure.
--- NOTE | 2022-06-06 12:32 | PC.NURSE ---
pt off floor at this time for surgery, via bed.
--- NOTE | 2022-06-06 12:42 | WPDANESEPPF ---
Anes - Initial Pre Proc Eval Procedure: Operation Date: 06/06/22 14:00 Proposed Procedures p Laparoscopic Cholecystectomy With Intraoperative Cholangiogram; Possible Open - Lexa Bryant DO Date/Time: 06/06/22 12:42 Surgeon: Lexa Bryant DO Pre Op Diagnosis: Acute Cholecystitis Patient Data Age: 31 Gender: M Height: 1.8 m Weight: 97.7 kg Last Vital Signs Temp 36.7 C 06/06/22 05:45 Pulse 71 06/06/22 05:45 Resp 20 06/06/22 05:45 BP 152/100 H 06/06/22 05:45 Pulse Ox 99 06/06/22 05:45 O2 Del Method Room Air 06/06/22 09:00 Allergies Allergy/AdvReac Type Severity Reaction Status Date / Time No Known Allergies Allergy Verified 06/05/22 05:53 Home Medications Medication Instructions Recorded Confirmed Type buspirone 15 mg tablet 15 mg PO TID #90 tabs 09/07/19 06/05/22 Rx clonazepam 2 mg tablet 2 mg PO TID 11/01/21 06/05/22 History metoprolol tartrate 100 mg tablet 100 mg PO QID 11/01/21 06/05/22 History zolpidem 10 mg tablet 10 mg PO HS 11/01/21 06/05/22 History clonidine HCl 0.2 mg tablet 0.2 mg PO TID #270 tabs 04/19/22 06/05/22 Rx gabapentin 400 mg capsule 400 mg PO TID 06/05/22 06/05/22 History omeprazole 20 mg capsule,delayed 20 mg PO DAILY 06/05/22 06/05/22 History release venlafaxine 150 mg 150 mg PO DAILY 06/05/22 06/05/22 History capsule,extended release 24 hr Laboratory Tests 06/05/22 06/05/22 06/06/22 11:40 11:48 06:52 WBC RBC Hgb Hct MCV MCH MCHC RDW Plt Count MPV % Immature Plt Fraction Sodium 135 mmol/L L mmol/L (137-145) Potassium 4.2 mmol/L mmol/L (3.4-5.0) Chloride 100 mmol/L mmol/L (98-107) Carbon Dioxide 21 mmol/L L mmol/L (22-30) Anion Gap 14 mmol/L mmol/L (8-16) BUN 5 mg/dL L D mg/dL (9-20) Creatinine 0.70 mg/dL mg/dL (0.7-1.3) Estim Creat Clear Calc 143 ml/min ml/min Estimated GFR > 60 (59 - ) Glucose 80 mg/dL mg/dL (65-110) Calcium 8.3 mg/dL L mg/dL (8.4-10.2) Total Bilirubin 1.1 mg/dL mg/dL (0.2-1.3) AST 276 U/L H U/L (17-59) ALT 134 U/L H U/L (6-50) Alkaline Phosphatase 185 U/L H U/L (38-126) Troponin I < 0.012 ng/mL ng/mL (0.000-0.034) Total Protein 7.0 g/dL g/dL (6.3-8.2) Albumin 4.1 g/dL g/dL (3.5-5.1) Lipase 499 U/L H U/L (23-300) Ethyl Alcohol Hepatitis A IgM Ab Negative (Negative) Hep Bs Antigen Negative (Negative) Hep B Core IgM Ab Negative (Negative) Hepatitis C Ab Screen Negative (Negative) 06/06/22 06/06/22 08:39 08:39 WBC 6.2 K/mm3 K/mm3 (4.5-10.0) RBC 4.76 M/mm3 M/mm3 (4.6-6.20) Hgb 14.3 g/dL g/dL (14.0-18.0) Hct 43.1 % % (42.0-52.0) MCV 90.5 fl fl (80-100) MCH 30.0 pg pg (26-34) MCHC 33.2 g/dl g/dl (32-36) RDW 14.9 % H % (11.5-14.5) Plt Count 81 k/mm3 L k/mm3 (150-375) MPV 9.8 fl fl (7.4-10.4) % Immature Plt Fraction 3.6 % % (0.9-11.2) Sodium Potassium Chloride Carbon Dioxide Anion Gap BUN Creatinine Estim Creat Clear Calc Estimated GFR Glucose Calcium Total Bilirubin AST ALT Alkaline Phosphatase Troponin I Total Protein Albumin Lipase Ethyl Alcohol < 10 mg/dL mg/dL (<10) Hepatitis A IgM Ab Hep Bs Antigen Hep B Core IgM Ab Hepatitis C Ab Screen Patient hx anesthesia problems: none Family hx anesthesia problems: none Results Review: All pre-operative results and doc
[2022-06-06] MEDS: KETOROLAC 15 MG/ML VIAL (*BKC) IV PUSH (12:45)
[2022-06-06] MEDS: ACETAMINOPHEN 500 MG TABLET 1000 MG PO (12:45)
[2022-06-06] MEDS: LACTATED RINGERS 1,000 ML 30 ML IV CONT ×2 (12:45→14:28)
[2022-06-06] MEDS: ceFAZolin 2 GM/D5W 50 ML 2 GM/50 ML BAG IVPB (13:03)
[2022-06-06] MEDS: SCOPOLAMINE 1.5 MG PATCH TRANSDERM (13:08)
[2022-06-06] MEDS: BUPIVACAINE/EPINEPHRINE 0.5% 10 ML VIAL 30 ML INFILTRATE (14:15)
--- NOTE | 2022-06-06 14:31 | W.PM.PROC2 ---
Procedure Note - Detailed Date of Procedure 06/06/22 Pre-op Diagnosis Acute Cholecystitis, elevated liver enzymes Post-op Diagnosis Same Procedure Performed Laparoscopic Cholecystectomy with intraoperative cholangiogram Surgeon Lexa Bryant, DO Anesthesia General and Local (0.5% bupivacaine) Indications This 31-year-old man who presented to the emergency department with right upper quadrant and epigastric abdominal pain for the past week. He has had significant nausea and vomiting as well. He has a history of heavy alcohol use but has not been drinking much over the past week due to his symptoms. His liver enzymes were noted to be elevated on admission and CT showed evidence of hepatic steatosis. His PT and INR were normal. Ultrasound showed evidence of cholelithiasis with positive sonographic Damian sign and slightly dilated hepatic duct. Discussions were made with the patient about treatment options and decision was made to proceed with laparoscopic cholecystectomy with intraoperative cholangiogram, possible open. Findings Laparoscopic cholecystectomy with cholangiogram was performed. The gallbladder had several pericholecystic adhesions. There were multiple stones within the gallbladder. The cystic duct appeared normal in size. Intraoperative cholangiogram was obtained with Omnipaque contrast and no filling defects were identified. Contrast passage through the sphincter of Oddi was somewhat slow but still did not have any signs of obstruction. The gallbladder was removed and sent to the lab for pathology. Description of Procedure Procedure as well as risks, benefits, and alternatives were discussed with patient. Written consent was obtained and placed in chart prior to procedure. The patient was brought back to surgical suite. Patient was placed in supine position on operating table. Time-out was done to confirm patient and procedure. Patient was then intubated by the anesthesia department. Abdomen was prepped and draped in sterile fashion using chlorhexidine prep. 0.5% bupivacaine with epinephrine was infiltrated at each site of incision. A 5 millimeter incision was made near the umbilicus, and a 5 millimeter Optiview trocar was advanced through the abdominal layers under direct visualization. Once inside the abdominal cavity, carbon dioxide was insufflated to create a pneumoperitoneum. The camera was inserted and the abdomen was inspected. No immediate abnormalities were identified. The patient was placed in reverse Trendelenburg position and rotated slightly to the left. An 11 millimeter incision was made in the subxiphoid region, and an 11 millimeter trocar was inserted under direct visualization. Two 5 millimeter incisions were made in the right upper quadrant, and two 5 millimeter trocars were inserted under direct visualization. The gallbladder was identified and grasped at the fundus and retracted superiorly. It was then grasped at the infundibulum retracted laterally. Careful dissection around the neck of the gallbladder was performed using blunt dissection with a [place] grasper and hook electrocautery. The cystic duct was identified, and a window was created behind it. The cystic artery was also identified and a window was created behind it. The critical view of safety was identified, visualizing the cystic duct running directly into the neck of the gallbladder, and the cystic artery running directly into the wall of the gallbladder. A 5 millimeter clip sports equipment repairer was then used to place 2 clips proximally and 1 clip distally on the cystic artery. It was then transected using endoscopic scissors. The Olsen clamp was placed across the neck of the gallbladder and the cholangiocatheter was then advanced into the distal neck of the gallbladder. The catheter flushed with saline with ease. Patient was then flattened out in bed and fluoroscopy was used to obtain intraoperative cholangiogram with Omnipaque contrast. The patient was
[2022-06-06] MEDS: ONDANSETRON INJ 4 MG/2 ML VIAL IV PUSH (15:05)
--- NOTE | 2022-06-06 15:21 | PC.NURSE ---
pt back in room at this time.
[2022-06-06] MEDS: HYDROcodone/acetaminophen (*CRX) 10-325 MG TABLET 1 TAB PO (16:13)
[2022-06-06] MEDS: busPIRone HCL 5 MG TABLET 15 MG PO (16:14)
[2022-06-06] MEDS: cloNIDine HCL 0.2 MG TABLET PO (16:14)
[2022-06-06] MEDS: METOPROLOL TARTRATE 50 MG TAB 100 MG PO (16:14)
[2022-06-06] MEDS: GABAPENTIN 400 MG CAPSULE PO (16:14)
[2022-06-06] MEDS: clonazePAM (*CRX) 0.5 MG TABLET 2 MG PO (16:16)
--- NOTE | 2022-06-06 18:28 | PM.DS ---
DS: Admitting Diagnosis Discharge Date 06/06/22 Admitting Diagnosis Acute cholecystitis DS: Discharge Diagnosis Discharge Diagnosis (1) Acute cholecystitis: Code(s): K81.0 - Acute cholecystitis Status: Acute (2) Alcoholic liver disease: Code(s): K70.9 - Alcoholic liver disease, unspecified Status: Acute (3) Elevated liver enzymes: Code(s): R74.8 - Abnormal levels of other serum enzymes Status: Acute (4) Chronic alcohol use: Code(s): F10.90 - Alcohol use, unspecified, uncomplicated Status: Acute (5) Tobacco use: Code(s): Z72.0 - Tobacco use Status: Acute DS: Summary Hospital Course Reason for hospitalization: acute cholecystitis Hospital Course: this is a 31-year-old man who presented to the emergency department on 06/05/2022 with complaints of upper abdominal pain with nausea and vomiting for the past week. He had never experienced symptoms like this in the past. He does have a medical history complicated by heavy chronic alcohol use. He typically drinks 1-2 pt of whiskey daily, but over this past week he has drank much less due to the nausea and vomiting. Workup in the emergency department showed evidence of a normal white blood count, but he did have elevated liver enzymes and CT showed gallbladder distension and hepatic steatosis. He was also noted to have an elevated ethanol level on his lab work in the emergency department. He was admitted for further treatment. An ultrasound was obtained 06/05/2022 and this showed evidence of cholelithiasis with a positive sonographic Damian sign and common bile duct measuring 8 mm. He was given a clear liquid diet and further discussion was made with the patient and treatment options. He was continuing to have persistent nausea and vomiting despite antiemetics and bowel rest. Decision was made to proceed with laparoscopic cholecystectomy with intraoperative cholangiogram on 06/06/2022. Cholangiogram showed no evidence of filling defects or obstruction. Surgery was uncomplicated and he was returned to the surgical floor postoperatively. His diet and activity were advanced as tolerated. He was able to tolerate a low-fat diet, his pain was controlled, vitals remained stable, and he was ambulating in the halls. He was discharged in the evening after his surgery on 06/06/2022. Time spent discussing smoking cessation with patient: 3 to 10 minutes Status at Discharge Functional status at discharge: independent ambulation Overall status at discharge: patient is progressing back to baseline Time Spent with Patient Time attestation: Total time spent providing and/or coordinating discharge services: Time spent: Less than 30 minutes Exam Narrative: Unchanged from preoperative exam DS: Data Data Completed and Pending Completed studies during hospitalization: Pending at discharge 06/06/22 13:31 Surgical [PTH] Routine Labs on day of discharge: Preliminary micro results at discharge 06/05/22 08:52 Blood Culture - Preliminary Blood 06/05/22 08:53 Blood Culture - Preliminary Blood Imaging Radiologist's impression: ITS Impressions Abdomen/Pelvis CT 06/05/22 07:00 IMPRESSION: 1. Gallbladder distention, which may secondary to fasting or acute cholecystitis. Correlate with physical exam. 2. Diffuse hepatic steatosis. 3. Mild tree-in-bud opacities in right lower lobe and lingula, consistent with inflammation versus infection. Chest X-Ray 06/05/22 07:11 IMPRESSION: 1. No acute cardiopulmonary disease. Abdomen Ultrasound 06/05/22 15:42 IMPRESSION: Hepatomegaly. Echogenic liver, most commonly due to steatosis but also can be seen with hepatitis and fibrosis. Cholelithiasis, positive sonographic Damian sign, and extrahepatic bile duct dilation. These findings could be seen with choledocholithiasis. Consider evaluation with MRCP. Cholangiogram,Operative 06/06/22 14:25 PRICE
== END 2022-06-06 16:30 | disposition home or self-care (01) ==
LOC: ANHED 07:14 → ANH3MEDSUR 10:16
PROVIDERS: Emergency Medicine; Admitting Provider Surgery; Emergency Provider Emergency Medicine; PCP Physician Assistant; Visit Provider Surgery
PROC: 0FT44ZZ Resection of Gallbladder, Percutaneous Endoscopic Approach (ICD-10-PCS; CPT 47562; principal; 2022-06-06 14:00)
DX: K80.10 Calculus of gallbladder with chronic cholecystitis without obstruction (principal); K70.9 Alcoholic liver disease, unspecified; R74.01 Elevation of levels of liver transaminase levels; F10.10 Alcohol abuse, uncomplicated; F17.210 Nicotine dependence, cigarettes, uncomplicated; K76.0 Fatty (change of) liver, not elsewhere classified; F41.9 Anxiety disorder, unspecified; R91.8 Other nonspecific abnormal finding of lung field; F32.A Depression, unspecified; Y90.0 Blood alcohol level of less than 20 mg/100 ml; F11.10 Opioid abuse, uncomplicated; Z20.822 Contact with and (suspected) exposure to COVID-19; R05.9 Cough, unspecified; R06.09 Other forms of dyspnea; F11.11 Opioid abuse, in remission; Z79.899 Other long term (current) drug therapy
CPT/HCPCS: 47563; 36415; 71046; 74177; 74300; 76705; 80053; 80074; 80307; 81001; 83690; 83735; 84484; 85025; 85027; 85055; 85610; 85730; 87040; 87636; 88304; 93005; 96361; 96365; 96367; 96374; 96375; 96376; 99285; A9270; G0378; J0131; J0330; J0690; J1100; J1170; J1885; J2060; J2250; J2405; J2543; J2550; J2704; J2710; J3010; J7030; J7120; Q9966; Q9967

== ENCOUNTER 2022-06-27 08:21 | Emergency (ER) | payer SELFPAY ==
[2022-06-27] VITALS (21 sets, daily range): BP systolic 125–176; BP diastolic 72–110; PULSE 87–122; RESP 10–20; TEMP 36.2; O2SAT 94–99
[2022-06-27] MEDS: diazePAM INJ (*CRX) 10 MG/2 ML SYRINGE 5 MG IV PUSH (08:37)
[2022-06-27] MEDS: SODIUM CHLORIDE 0.9% IV 1,000 ML 999 ML IV CONT (08:37)
[2022-06-27] MEDS: ONDANSETRON INJ 4 MG/2 ML VIAL IV PUSH (08:37)
[2022-06-27 08:44] LABS: Glucose Point of Care 127 mg/dl (65-105)
[2022-06-27 08:49] LABS: Basophils Absolute Auto 0.1 K/mm3 (0.0-0.1); Basophils Percent Auto 0.8 % (0.2-1.2); Eosinophils Percent Auto 0.7 % (0-4.4); Hematocrit 47.4 % (42.0-52.0); Hemoglobin 15.4 g/dL (14.0-18.0); Immature Granulocyte Absolute 0.02 K/mm3 (0.00-0.031); Immature Granulocyte Percent A 0.3 % (0-0.5); Lymphocytes Absolute Auto 1.87 K/mm3 (0.9-3.2); Lymphocytes Percent Auto 30.5 % (18.3-44.2); Mean Corpuscular HGB Conc 32.5 g/dl (32-36); Mean Corpuscular Volume 92.4 fl (80-100); Mean Platelet Volume 10.1 fl (7.4-10.4); Monocytes Absolute Auto 0.9 K/mm3 (0.1-0.6); Monocytes Percent Auto 14.2 % (2.6-8.5); Neutrophils Absolute Auto 3.3 K/mm3 (1.3-6.7); Neutrophils Percent Auto 53.5 % (45.5-73.1); Platelet Count Result 271 k/mm3 (150-375); Red Blood Count 5.13 M/mm3 (4.6-6.20); Red Cell Distribution Width 18.2 % (11.5-14.5); White Blood Count 6.1 K/mm3 (4.5-10.0)
[2022-06-27 09:17] LABS: Ethanol 381 mg/dL (<10)
[2022-06-27 09:24] LABS: Alanine Aminotransferase 407 U/L (6-50); Albumin Level 5.1 g/dL (3.5-5.1); Alkaline Phosphatase 217 U/L (38-126); Anion Gap 15 mmol/L (8-16); Aspartate Amino Transferase 465 U/L (17-59); Blood Urea Nitrogen 11 mg/dL (9-20); Calcium 9.1 mg/dL (8.4-10.2); Carbon Dioxide 30 mmol/L (22-30); Chloride 104 mmol/L (98-107); Estimated CRCL calculation 143 ml/min; Estimated Glomerular Filt Rate > 60; Glucose 129 mg/dL (65-110); Lipase 192 U/L (23-300); Potassium 3.7 mmol/L (3.4-5.0); Sodium 149 mmol/L (137-145)
--- NOTE | 2022-06-27 16:42 | ED.GENADULT ---
HPI - General Adult General Chief complaint: Alcohol Stated complaint: here for alcohol withdrawal Time Seen by Provider: 06/27/22 08:28 History of Present Illness HPI narrative: Patient is a 31-year-old male who presents ER with reports of alcohol withdrawal. Reports he drinks hard alcohol daily. He had his last drink around 9 or 10 last night. He then woke up this morning and felt like he was withdrawing so he took another shot of alcohol. He reports shakiness and nervousness. Reports he has used chlordiazepoxide in the past for withdrawal. Denies drug use. No SI/HI. Related Data Home Medications Medication Instructions Recorded Confirmed clonazepam 2 mg tablet 2 mg PO TID 11/01/21 06/05/22 zolpidem 10 mg tablet 10 mg PO HS 11/01/21 06/05/22 gabapentin 400 mg capsule 400 mg PO TID 06/05/22 06/05/22 omeprazole 20 mg capsule,delayed 20 mg PO DAILY 06/05/22 06/05/22 release venlafaxine 150 mg 150 mg PO DAILY 06/05/22 06/05/22 capsule,extended release 24 hr Allergies Allergy/AdvReac Type Severity Reaction Status Date / Time No Known Allergies Allergy Verified 06/27/22 08:35 Review of Systems Constitutional: Constitutional: Reports no additional constitutional complaints Cardiovascular: Cardiovascular: Reports no additional cardiovascular complaints Respiratory: Respiratory: Reports no additional respiratory complaints Gastrointestinal: Gastrointestinal: Reports no additional gastrointestinal complaints Neurologic: Comments: Reports tremors, no seizure [facility] Past Medical History Medical History (Updated 06/27/22 @ 16:43 by Caleb Conley MD) Alcoholic intoxication Anxiety Benzodiazepine intoxication Depression H/O: HTN (hypertension) Opioid abuse Substance abuse Surgical History Surgical History (Updated 06/27/22 @ 17:23 by Caleb Conley MD) History of cholecystectomy Family History Family History Mother Patient's mother is in good health Father Patient's father is in good health Sibling Patient's brother is in good health Other Unknown family medical history Social History Social History (Updated 06/05/22 @ 12:09 by Lexa Bryant DO) Smoking packs per day: 1 Smoking cigarettes per day: 20.0 Years smoked: 12 Smoking pack-years: 12.00 Smoking status: Current every day smoker Tobacco type: cigarettes Second hand tobacco smoke exposure: No Alcohol intake: current Drinks per week: 8 Alcohol use details: 1-2 pt of whiskey per day Substance use: never Substance use type: does not use Lack of Transportation: YES Lack of Food: Never True Current Housing: I Have Housing Concerned About Future Housing: No Difficulty Paying Gas/Electric Bills: No Difficulty Paying for Meds: No Currently Unemployed: No Education: Trade/Vocational Certificate Difficulty w/ Childcare or Family Care: No Gender identity (if verbalized by the patient): Male Spiritual care concerns: No Exam Narrative: GENERAL: Slightly anxious-appearing, well-nourished, and in no acute distress. HEAD: Normocephalic, atraumatic. EYES: PERRLA and EOMI. ENT: Mucous membranes moist. CHEST: Clear to auscultation. No respiratory distress. HEART: Tachycardic regular. Normal peripheral pulses. ABDOMEN: Soft, nontender, nondistended. EXTREMITIES: Normal range of motion. No edema. SKIN: Warm, dry, no rash. NEURO: Alert and oriented x3. PSYCH: Normal mood and affect. Course Course Emergency Course: Patient is not in withdrawal and is actually in fact intoxicated. His mother will come pick him up and take him home. Vital Signs Vital signs: Vital Signs Temperature 97.2 F L 06/27/22 08:26 Pulse Rate 121 H 06/27/22 08:26 Respiratory Rate 14 06/27/22 08:26 Blood Pressure 162/110 H 06/27/22 08:26 Pulse Oximetry 99 06/27/22 08:26 Oxygen Delivery Room Air 06/27/22 08:26 [place]
== END 2022-06-27 17:44 | disposition home or self-care (01) ==
PROVIDERS: Emergency Provider Emergency Medicine; PCP Physician Assistant
DX: F10.129 Alcohol abuse with intoxication, unspecified (principal); Y90.8 Blood alcohol level of 240 mg/100 ml or more; I10 Essential (primary) hypertension; F41.9 Anxiety disorder, unspecified; F32.A Depression, unspecified; F17.210 Nicotine dependence, cigarettes, uncomplicated
CPT/HCPCS: 36415; 80053; 80307; 82948; 83690; 85025; 96361; 96374; 96375; 99284; J2405; J3360; J7030

== ENCOUNTER 2022-08-09 17:00 | Outpatient (CLI) | payer OTHER, SELFPAY | END 2022-08-09 17:01 | disposition home or self-care (01) | PROVIDERS: PCP Physician Assistant; Visit Provider Physician Assistant | DX: Z20.2 Contact with and (suspected) exposure to infections with a predominantly sexual mode of transmission (principal) | CPT/HCPCS: 87661 ==

== ENCOUNTER 2022-10-05 19:05 | Emergency (ER) | payer OTHER, SELFPAY ==
[2022-10-05 19:14] VITALS: BP 126/76; PULSE 75; RESP 16; TEMP 35.6; O2SAT 99
[2022-10-05 19:15] VITALS: BP 126/76; PULSE 75; RESP 16; TEMP 35.6; O2SAT 99
--- NOTE | 2022-10-05 19:26 | ED.SKABFB ---
HPI - Skin/Abscess/Foreign Bdy General Chief complaint: Skin/Abscess/Foreign Body Stated complaint: non healing wound Time Seen by Provider: 10/05/22 19:13 Source: patient Mode of arrival: ambulatory Limitations: no limitations History of Present Illness HPI narrative: Patient is a 31-year-old male that presents with left wrist wound that he noticed after he took off his cast on Sunday, original surgery was September 20 for scaphoid fracture. Patient states cast was supposed to be on for another week, but it felt so itchy he had to take it off. Patient states wound was open with no stitches visible and surrounding skin was wet. Patient has been washing with soap and water and covering. Patient reports clear and slightly bloody drainage oozing from wound. Has not taken anything. Has follow-up appointment with de[facility] ortho next Sunday Related Data Home Medications Medication Instructions Recorded Confirmed gabapentin 400 mg capsule 400 mg PO TID 06/05/22 10/05/22 omeprazole 20 mg capsule,delayed 20 mg PO DAILY 06/05/22 10/05/22 release Allergies Allergy/AdvReac Type Severity Reaction Status Date / Time No Known Allergies Allergy Verified 10/06/22 11:34 Review of Systems Review of Systems: All systems reviewed & are unremarkable except as noted in HPI and below Constitutional: Constitutional: Denies body ache(s), Denies fever(s), Denies headache(s), Denies malaise and Denies weakness Eyes: Eyes: Denies loss of vision ENT: Denies otalgia, Denies headache(s), Denies nasal discharge, Denies sinus pain and Denies sore throat Cardiovascular: Cardiovascular: Denies chest pain, Denies irregular heart rhythm and Denies dyspnea Respiratory: Respiratory: Denies dyspnea Gastrointestinal: Gastrointestinal: Denies abdominal pain, Denies melena, Denies hematochezia, Denies diarrhea, Denies nausea and Denies vomiting Musculoskeletal: Musculoskeletal: Denies back pain, Denies myalgias and Denies arthralgias Integumentary/Breasts: Skin/Breast: Denies pruritus, Denies rash and Reports wounds Neurologic: Denies headache(s), Denies loss of vision and Denies weakness Psychiatric: Psychiatric: Reports no additional psychiatric complaints PMFSH Past Medical History Medical History Alcoholic intoxication Anxiety Benzodiazepine intoxication Depression H/O: HTN (hypertension) Opioid abuse Substance abuse Surgical History Surgical History Hx laparoscopic cholecystectomy 06/06/22 Family History Family History Mother Patient's mother is in good health Father Patient's father is in good health Sibling Patient's brother is in good health Other Unknown family medical history Social History Social History Smoking packs per day: 1 Smoking cigarettes per day: 20.0 Years smoked: 12 Smoking pack-years: 12.00 Smoking status: Current every day smoker Tobacco type: cigarettes Second hand tobacco smoke exposure: No Alcohol intake: current Drinks per week: 8 Alcohol use details: 1-2 pt of whiskey per day Substance use: never Substance use type: does not use Lack of Transportation: YES Lack of Food: Never True Current Housing: I Have Housing Concerned About Future Housing: No Difficulty Paying Gas/Electric Bills: No Difficulty Paying for Meds: No Currently Unemployed: No Education: Trade/Vocational Certificate Difficulty w/ Childcare or Family Care: No Gender identity (if verbalized by the patient): Male Spiritual care concerns: No Comments At time of signature, agree with nursing past medical, surgical, social and family history. There is no relevant family history pertinent to the presenting complaint. Exam Const: General: cooperative,
== END 2022-10-05 19:48 | disposition home or self-care (01) ==
PROVIDERS: Emergency Provider Nurse Practitioner Family; PCP Physician Assistant
DX: T81.31XA Disruption of external operation (surgical) wound, not elsewhere classified, initial encounter (principal); F17.210 Nicotine dependence, cigarettes, uncomplicated; I10 Essential (primary) hypertension; F41.9 Anxiety disorder, unspecified; F32.A Depression, unspecified
CPT/HCPCS: 99213; G0463

== ENCOUNTER 2022-10-06 10:54 | Emergency (ER) | payer OTHER, SELFPAY ==
--- NOTE | ~2022-10-06 | XR_ITS ---
EXAMINATION: XR wrist LT min 3V DATE: 10/06/2022 15:04 INDICATION: Wound dehiscence TECHNIQUE: Posteroanterior, ulnar deviation, oblique, and lateral views of the LEFT wrist were obtain ed. COMPARISON: None available FINDINGS: A stabilization screw traverses a transverse waist fracture of the scaphoid. There is a sma ll amount of heterotopic bone formation lateral to the distal aspect of the scaphoid. There is mild s oft tissue of the lateral wrist near the radial styloid and scaphoid. No acute osseous findings are e vident. IMPRESSION: 1. Internal stabilization of a transverse scaphoid waist fracture with some calcified callus seen at the lateral margin of the fracture. Mild soft tissue swelling. Reviewed, dictated and finalized at location F. IMPRESSION: 1. Internal stabilization of a transverse scaphoid waist fracture with some kaden cified callus seen at the lateral margin of the fracture. Mild soft tissue swel ling.
[2022-10-06 11:32] VITALS: BP 129/71; PULSE 89; RESP 16; TEMP 36.2; O2SAT 97
--- NOTE | 2022-10-06 13:50 | ED.WOUNDLAC ---
HPI - Wound/Laceration General Chief Complaint: Wound/Laceration <Joy Copeland PA-C - Last Filed: 10/06/22 19:42> Stated Complaint: recent surgery L wrist/ wound <Joy Copeland PA-C - Last Filed: 10/06/22 19:42> Time Seen by Provider: 10/06/22 13:10 <Joy Copeland PA-C - Last Filed: 10/06/22 19:42> History of Present Illness HPI narrative: 31-year-old male reports for evaluation of wound to the volar aspect of his wrist. Patient underwent surgery on September 20 in [place] for scaphoid fracture. He fell around mid July and continued to have pain and swelling, thought he had sprained his wrist. While in [place] for rehab, he was evaluated and was taken to surgery for scaphoid fracture. Patient was placed in a cast and began experiencing increased discomfort and itchiness, therefore removed the cast 6 days ago. After removal, he noticed the surgical site was open without visible stitches and has been oozing serosanguineous fluid since. Patient reports he has been cleaning the wound with soap and water daily and keeping it covered. He went to urgent care yesterday for evaluation, diagnosed with wound dehiscence and encouraged to transfer to [place]. Per the note, patient declined transfer and was given strict ED return precautions. He was started on Keflex yesterday and has been taking it as prescribed. Reports he has a follow-up appointment [place] [facility], but reports today to see if we can give him a referral for a orthopedist at [place]. He denies chills, body aches, fever, difficulty moving his fingers or hand, paresthesias, purulent drainage. <Joy Copeland PA-C - Last Filed: 10/06/22 19:42> Related Data Home Medications: Home Medications Medication Instructions Recorded Confirmed gabapentin 400 mg capsule 400 mg PO TID 06/05/22 10/05/22 omeprazole 20 mg capsule,delayed 20 mg PO DAILY 06/05/22 10/05/22 release <RICARDO Felix Last Filed: 10/06/22 19:42> Allergies/Adverse Reactions: Allergies Allergy/AdvReac Type Severity Reaction Status Date / Time No Known Allergies Allergy Verified 10/06/22 11:34 <Joy Copeland PA-C - Last Filed: 10/06/22 19:42> Review of Systems Review of Systems: CONSTITUTIONAL: Denies fever, chills EYES: Denies visual changes, redness, or discharge. ENT: Denies rhinorrhea, congestion, sore throat, or otalgia. CARDIOVASCULAR: Denies chest pain, palpitations, or edema. RESPIRATORY: Denies cough or dyspnea. GASTROINTESTINAL: Denies abdominal pain, nausea, vomiting, or diarrhea. GENITOURINARY: Denies dysuria or hematuria. SKIN: Denies rash or itching. MUSCULOSKELETAL: Denies back pain, joint pain, or myalgia. NEUROLOGIC: Denies headache, numbness, dizziness, or weakness. PSYCHIATRIC: Denies anxiety or depression. <Joy Copeland PA-C - Last Filed: 10/06/22 19:42> [facility] Past Medical History Medical History: Medical History Alcoholic intoxication Anxiety Benzodiazepine intoxication Depression H/O: HTN (hypertension) Opioid abuse Substance abuse <Joy Copeland PA-C - Last Filed: 10/06/22 19:42> Surgical History Surgical History: Surgical History Hx laparoscopic cholecystectomy 06/06/22 <Joy Copeland PA-C - Last Filed: 10/06/22 19:42> Family History Family History: Family History Mother Patient's mother is in good health Father Patient's father is in good health Sibling Patient's brother is in good health Other Unknown family medical history <Joy Copeland PA-C - Last Filed: 10/06/22 19:42> Social History Social History: Social History Smoking packs per day: 1 Smoking cigarettes per day: 20.0 Year
[2022-10-06] MEDS: ACETAMINOPHEN 500 MG TABLET 1000 MG PO (14:01)
[2022-10-06] MEDS: IBUPROFEN 600 MG TABLET PO (14:01)
[2022-10-06] MEDS: AMPICILLIN SULB 3 GM/NS 100 ML 3 GM/100 ML VIAL IVPB (14:37)
[2022-10-06 14:46] LABS: Basophils Percent Auto 0.4 % (0.2-1.2); Eosinophils Absolute Auto 0.3 K/mm3 (0-0.3); Eosinophils Percent Auto 2.9 % (0-4.4); Hematocrit 39.6 % (42.0-52.0); Hemoglobin 13.3 g/dL (14.0-18.0); Immature Granulocyte Absolute 0.05 K/mm3 (0.00-0.031); Immature Granulocyte Percent A 0.6 % (0-0.5); Lymphocytes Absolute Auto 2.98 K/mm3 (0.9-3.2); Mean Corpuscular HGB Conc 33.6 g/dl (32-36); Mean Corpuscular Hemoglobin 31.6 pg (26-34); Mean Corpuscular Volume 94.1 fl (80-100); Mean Platelet Volume 10.7 fl (7.4-10.4); Monocytes Absolute Auto 0.6 K/mm3 (0.1-0.6); Monocytes Percent Auto 6.8 % (2.6-8.5); Neutrophils Absolute Auto 4.6 K/mm3 (1.3-6.7); Neutrophils Percent Auto 54.3 % (45.5-73.1); Platelet Count Result 253 k/mm3 (150-375); Red Blood Count 4.21 M/mm3 (4.6-6.20); Red Cell Distribution Width 13.1 % (11.5-14.5); White Blood Count 8.5 K/mm3 (4.5-10.0)
[2022-10-06 14:56] LABS: Alanine Aminotransferase 44 U/L (6-50); Albumin Level 4.4 g/dL (3.5-5.1); Alkaline Phosphatase 110 U/L (38-126); Anion Gap 7 mmol/L (8-16); Aspartate Amino Transferase 37 U/L (17-59); Bilirubin,Total 0.5 mg/dL (0.2-1.3); Blood Urea Nitrogen 15 mg/dL (9-20); Calcium 8.8 mg/dL (8.4-10.2); Carbon Dioxide 29 mmol/L (22-30); Chloride 101 mmol/L (98-107); Estimated Glomerular Filt Rate > 60; Glucose 104 mg/dL (65-110); Potassium 4.2 mmol/L (3.4-5.0); Sodium 137 mmol/L (137-145)
== END 2022-10-06 16:50 | disposition home or self-care (01) ==
PROVIDERS: Emergency Provider Physician Assistant; PCP Physician Assistant
DX: T81.31XA Disruption of external operation (surgical) wound, not elsewhere classified, initial encounter (principal); S62.022D Displaced fracture of middle third of navicular [scaphoid] bone of left wrist, subsequent encounter for fracture with routine healing; I10 Essential (primary) hypertension; F41.9 Anxiety disorder, unspecified; F32.A Depression, unspecified; F17.210 Nicotine dependence, cigarettes, uncomplicated; Z90.49 Acquired absence of other specified parts of digestive tract; W19.XXXD Unspecified fall, subsequent encounter
CPT/HCPCS: 29125; 36415; 73110; 80053; 85025; 96365; 99284; A9270; J0295

== ENCOUNTER 2022-11-03 22:58 | Emergency (ER) | payer OTHER, SELFPAY ==
[2022-11-03 23:00] VITALS: BP 148/94; PULSE 103; RESP 14; TEMP 36.6; O2SAT 95
--- NOTE | 2022-11-03 23:05 | ECG_ITS ---
Measurements Intervals [place] Rate: 117 P: 44 WI: 148 QRS: 67 QRSD: 101 T: 17 QT: 365 QTc: 511 Interpretive Statements SINUS TACHYCARDIA POSSIBLE LEFT ATRIAL ENLARGEMENT MINIMAL Q WAVES- INFERIOR LEADS NONSPECIFIC T-WAVE ABNORMALITY- ANTEROLAT/INF LEADS ABNORMAL ECG COMPARED TO ECG 06/05/2022 05:52:19 SINUS TACHYCARDIA NOW PRESENT T-WAVE ABNORMALITY NOW PRESENT Electronically Signed On 11-04-2022 6:12:11 CDT by Santiago Jung D.O.
[2022-11-03 23:06] VITALS: PULSE 105
[2022-11-03 23:18] LABS: Basophils Percent Auto 0.4 % (0.2-1.2); Eosinophils Absolute Auto 0.1 K/mm3 (0-0.3); Immature Granulocyte Absolute 0.02 K/mm3 (0.00-0.031); Immature Granulocyte Percent A 0.4 % (0-0.5); Lymphocytes Absolute Auto 2.55 K/mm3 (0.9-3.2); Lymphocytes Percent Auto 49.2 % (18.3-44.2); Mean Corpuscular HGB Conc 33.3 g/dl (32-36); Mean Corpuscular Hemoglobin 31.7 pg (26-34); Mean Corpuscular Volume 95.1 fl (80-100); Mean Platelet Volume 9.8 fl (7.4-10.4); Monocytes Absolute Auto 0.3 K/mm3 (0.1-0.6); Monocytes Percent Auto 5.4 % (2.6-8.5); Neutrophils Absolute Auto 2.3 K/mm3 (1.3-6.7); Neutrophils Percent Auto 43.6 % (45.5-73.1); Platelet Count Result 215 k/mm3 (150-375); Red Blood Count 4.73 M/mm3 (4.6-6.20); Red Cell Distribution Width 14.7 % (11.5-14.5); White Blood Count 5.2 K/mm3 (4.5-10.0)
--- NOTE | 2022-11-03 23:21 | PC.NURSE ---
Pt admits to this RN that he snorted fentanyl in an attempt to kill himself. Pt changed out of his street clothes and into paper scrubs. Belongings placed in bags in nurse's station. Charge nurse notified.
[2022-11-03 23:25] LABS: Alanine Aminotransferase 218 U/L (6-50); Albumin Level 4.9 g/dL (3.5-5.1); Alkaline Phosphatase 122 U/L (38-126); Anion Gap 17 mmol/L (8-16); Aspartate Amino Transferase 344 U/L (17-59); Bilirubin,Total 0.5 mg/dL (0.2-1.3); Blood Urea Nitrogen 6 mg/dL (9-20); Calcium 8.1 mg/dL (8.4-10.2); Carbon Dioxide 25 mmol/L (22-30); Chloride 109 mmol/L (98-107); Estimated CRCL calculation 128 ml/min; Estimated Glomerular Filt Rate > 60; Glucose 147 mg/dL (65-110); Potassium 3.6 mmol/L (3.4-5.0); Sodium 151 mmol/L (137-145)
--- NOTE | 2022-11-03 23:30 | PC.NURSE ---
Suicide precautions initiated, sitter at bedside.
[2022-11-03 23:35] LABS: Acetaminophen < 10 ug/mL (10-30); Salicylate < 1.0 mg/dL (2-20)
[2022-11-03 23:42] LABS: Ethanol 456 mg/dL (<10)
[2022-11-03] MEDS: LORazepam INJ (*CRX) 2 MG/ML VIAL 1 MG IV PUSH (23:45)
[2022-11-04] VITALS (25 sets, daily range): BP systolic 117–158; BP diastolic 66–109; PULSE 83–110; RESP 9–21; O2SAT 87–100
[2022-11-04 00:10] LABS: Influenza A QL RT-PCR Negative (Negative); Influenza B QL RT-PCR Negative (Negative); RSV RNA, RT-PCR Negative (Negative); SARS-CoV-2 RNA PCR Negative (Negative)
--- NOTE | 2022-11-04 00:17 | PC.NURSE ---
Pt reports history of anxiety, depression, insomnia, and bipolar. States he intentionally snorted 10 fentanyl pills in a suicide attempt. Pt is very tearful but cooperative. When asked if pt has previous suicide attempts, he denies, but has had suicidal thoughts in the past. He has never been hospitalized for suicidal ideations. When asked if he has a plan, pt states I'll take a gun to my face . He denies HI. This RN explained ER process including being medically cleared and being evaluated by [facility]. Pt verbalized understanding.
[2022-11-04 00:53] LABS: Appearance Urine Clear (Clear); Bacteria Urine None Seen /hpf; Bilirubin Urine Negative (Negative); Blood Urine Negative (Negative); Color Urine Yellow (Yellow); Glucose Urine UA Negative (Negative); Ketones Urine Negative (Negative); Leukocyte Esterase Ur Negative LEU/UL (Negative); Need Manual Microscopic Reviewed; Nitrate Urine Negative (Negative); Protein Urine 2+ mg/dL (Negative); RBC Urine 0-2 /hpf (0-2); Specific Grav Ur 1.015 (1.001-1.035); Squamous Epithelial Cell Urine Occasional /hpf (Few); WBC Urine 0-5 /hpf; pH Urine 5.5 (5.0-9.0)
[2022-11-04 00:54] LABS: Add Urine Microscopic? YES
[2022-11-04 01:00] LABS: Amphetamine Screen Urine Negative (Negative); Barbiturate Screen Urine Negative (Negative); Benzodiazepines Screen Urine Positive (Negative); Cannabinoid Screen Urine Positive (Negative); Cocaine Screen Urine Negative (Negative); Methadone Screen Urine Negative (Negative); Opiate Screen Urine Negative (Negative); Phencyclidine Screen Urine Negative (Negative)
--- NOTE | 2022-11-04 01:22 | ED.GENADULT ---
HPI - General Adult General Chief complaint: Overdose <Lyndon Pillai MD - Last Filed: 11/04/22 06:50> Stated complaint: od <Lyndon Pillai MD - Last Filed: 11/04/22 06:50> Time Seen by Provider: 11/03/22 23:14 <Lyndon Pillai MD - Last Filed: 11/04/22 06:50> History of Present Illness HPI narrative: this is a 32-year-old male with history of bipolar disorder and polysubstance use disorder presenting to ED after an overdose. He stopped taking his Suboxone several days ago because he wanted to take fentanyl get high. Patient was found down by EMS required a Narcan revival. He told EMS he was suicidal. He also admits to significant alcohol use today. The patient currently denies SI, HI or hallucinations. He says he has been compliant with his psychiatric medications. He has no complaints at this time outside of some anxiety. <Lyndon Pillai MD - Last Filed: 11/04/22 06:50> Related Data Home medications: Home Medications Medication Instructions Recorded Confirmed gabapentin 400 mg capsule 400 mg PO TID 06/05/22 10/05/22 omeprazole 20 mg capsule,delayed 20 mg PO DAILY 06/05/22 10/05/22 release <Lyndon Pillai MD - Last Filed: 11/04/22 06:50> Allergies/adverse reactions: Allergies Allergy/AdvReac Type Severity Reaction Status Date / Time No Known Allergies Allergy Verified 10/06/22 11:34 <Lyndon Pillai MD - Last Filed: 11/04/22 06:50> FOR[facility]LY [facility], [facility] Past Medical History Medical History: Medical History Alcoholic intoxication Anxiety Benzodiazepine intoxication Depression H/O: HTN (hypertension) Opioid abuse Substance abuse <Lyndon Pillai MD - Last Filed: 11/04/22 06:50> Surgical History Surgical History: Surgical History Hx laparoscopic cholecystectomy 06/06/22 <Lyndon Pillai MD - Last Filed: 11/04/22 06:50> Family History Family History: Family History Mother Patient's mother is in good health Father Patient's father is in good health Sibling Patient's brother is in good health Other Unknown family medical history <Lyndon Pillai MD - Last Filed: 11/04/22 06:50> Social History Social History: Social History Smoking packs per day: 1 Smoking cigarettes per day: 20.0 Years smoked: 12 Smoking pack-years: 12.00 Smoking status: Current every day smoker Tobacco type: cigarettes Second hand tobacco smoke exposure: No Alcohol intake: current Drinks per week: 8 Alcohol use details: 1-2 pt of whiskey per day Substance use: never Substance use type: opiates Lack of Transportation: YES Lack of Food: Never True Current Housing: I Have Housing Concerned About Future Housing: No Difficulty Paying Gas/Electric Bills: No Difficulty Paying for Meds: No Currently Unemployed: No Education: Trade/Vocational Certificate Difficulty w/ Childcare or Family Care: No Gender identity (if verbalized by the patient): Male Spiritual care concerns: No <Lyndon Pillai MD - Last Filed: 11/04/22 06:50> Exam Narrative: APPEARANCE: No apparent distress. Head: atraumatic. EYES: EOMI, Pleural NOSE: Atraumatic NECK: Trachea midline RESPIRATORY: No increased rate of breathing clear to auscultation CARDIOVASCULAR: RRR, ABDOMINAL: Non-distended MUSCULOSKELETAl: No obvious deformities NEURO: Alert. Moving 4/4 extremities SKIN:: Warm, dry. Normal color PSYCHIATRIC: Normal affect <Lyndon Pillai MD - Last Filed: 11/04/22 06:50> Course Reevaluation(s) Reevaluation #1: Patient was signed out to me by Dr. Pillai. Patient's blood alcohol is low enough for the patient to be medically cleared. Crisis was called for evaluation. Patient was evaluated by the crisis counselor
[2022-11-04] MEDS: SODIUM CHLORIDE 0.9% IV 2,000 ML 999 ML IV CONT (01:42)
[2022-11-04] MEDS: NICOTINE (*PBKC) 21 MG PATCH 1 PATCH TRANSDERM (04:11)
[2022-11-04] MEDS: HALOPERIDOL LACTATE 5 MG/ML VIAL IM (04:18)
--- NOTE | 2022-11-04 07:00 | PC.NURSE ---
Nurse report given to Geetha ENGLE
--- NOTE | 2022-11-04 07:15 | PC.NURSE ---
Pt is A&Ox4, denies SI, sitter no longer needed
--- NOTE | 2022-11-04 07:25 | PC.NURSE ---
Pt awoke by this RN, pt speech is slurred, unable to recall events of last night, pt tells me his name but cant tell me where he is or what year it is.
--- NOTE | 2022-11-04 08:26 | PC.NURSE ---
Pt awake, and states he is anxious. Pt A&Ox4, Pt states he is not suicidal at this time. Pt states he took fentanyl in an attempt to get high. Pt calm and cooperative at this time. Breakfast ordered for pt at this time
[2022-11-04] MEDS: LORazepam INJ (*CRX) 2 MG/ML VIAL 1 MG IV PUSH ×3 (12:33→16:24)
[2022-11-04 13:06] LABS: Ethanol 54 mg/dL (<10)
--- NOTE | 2022-11-04 14:44 | PC.NURSE ---
Called crisis, they state it could be 2-3 hours before they arrive
== END 2022-11-04 18:47 | disposition home or self-care (01) ==
PROVIDERS: Emergency Provider Emergency Medicine; PCP Physician Assistant
DX: F10.129 Alcohol abuse with intoxication, unspecified (principal); Y90.8 Blood alcohol level of 240 mg/100 ml or more; F11.10 Opioid abuse, uncomplicated; Z20.822 Contact with and (suspected) exposure to COVID-19; I10 Essential (primary) hypertension; F31.9 Bipolar disorder, unspecified; F41.9 Anxiety disorder, unspecified; F17.210 Nicotine dependence, cigarettes, uncomplicated; Z90.49 Acquired absence of other specified parts of digestive tract; R00.0 Tachycardia, unspecified; R94.31 Abnormal electrocardiogram [ECG] [EKG]
CPT/HCPCS: 36415; 80053; 80307; 81001; 84443; 85025; 87637; 93005; 96361; 96372; 96374; 96376; 99284; A9270; J1630; J2060; J7030

== ENCOUNTER 2023-01-01 10:53 | Emergency (ER) | payer OTHER, SELFPAY ==
[2023-01-01] VITALS (13 sets, daily range): BP systolic 110–141; BP diastolic 65–83; PULSE 54–91; RESP 6–23; TEMP 36.8; O2SAT 82–100
--- NOTE | ~2023-01-01 | XR_ITS ---
EXAMINATION: XR chest 1V portable INDICATION: Hypoxia TECHNIQUE: Portable AP chest at 1212 hours COMPARISON: 06/05/2022 FINDINGS: The lungs are free of acute opacities. No pleural effusion or pneumothorax. The heart size is normal. IMPRESSION: 1. No acute cardiopulmonary abnormality. Reviewed, dictated and finalized at location B.
[2023-01-01 12:10] LABS: Basophils Percent Auto 0.3 % (0.2-1.2); Eosinophils Percent Auto 0.3 % (0-4.4); Hematocrit 36.6 % (42.0-52.0); Hemoglobin 11.8 g/dL (14.0-18.0); Immature Granulocyte Absolute 0.05 K/mm3 (0.00-0.031); Immature Granulocyte Percent A 0.4 % (0-0.5); Lymphocytes Absolute Auto 1.93 K/mm3 (0.9-3.2); Lymphocytes Percent Auto 16.1 % (18.3-44.2); Mean Corpuscular HGB Conc 32.2 g/dl (32-36); Mean Corpuscular Hemoglobin 31.2 pg (26-34); Mean Corpuscular Volume 96.8 fl (80-100); Mean Platelet Volume 11.2 fl (7.4-10.4); Monocytes Absolute Auto 1.1 K/mm3 (0.1-0.6); Monocytes Percent Auto 8.9 % (2.6-8.5); Neutrophils Absolute Auto 8.9 K/mm3 (1.3-6.7); Platelet Count Result 215 k/mm3 (150-375); Red Blood Count 3.78 M/mm3 (4.6-6.20)
[2023-01-01 12:21] LABS: Alanine Aminotransferase 213 U/L (6-50); Albumin Level 4.8 g/dL (3.5-5.1); Alkaline Phosphatase 105 U/L (38-126); Anion Gap 7 mmol/L (8-16); Aspartate Amino Transferase 335 U/L (17-59); Bilirubin,Total 0.5 mg/dL (0.2-1.3); Blood Urea Nitrogen 26 mg/dL (9-20); Calcium 9.2 mg/dL (8.4-10.2); Carbon Dioxide 29 mmol/L (22-30); Chloride 98 mmol/L (98-107); Estimated CRCL calculation 66 ml/min; Estimated Glomerular Filt Rate 45; Glucose 98 mg/dL (65-110); Potassium 4.3 mmol/L (3.4-5.0); Sodium 134 mmol/L (137-145)
--- NOTE | 2023-01-01 14:16 | ED.OVERDOSE ---
HPI - Overdose General Chief Complaint: Overdose Stated Complaint: OD Time Seen by Provider: 01/01/23 10:58 History of Present Illness HPI Narrative: This is a 32-year-old male with past history of cholecystitis status postcholecystectomy, alcohol abuse and opioid abuse, brought in by EMS after an accidental overdose. EMS reports patient was found minimally responsive by his brother and roommate. He was given 2 mg of IV Narcan with improvement of mental status. He was found hypoxic and started on 2 L nasal cannula. The patient states he snorted fentanyl and has used fentanyl previously. He denies suicidal or homicidal ideations. He denies recent use of other drugs. Related Data Home Medications Medication Instructions Recorded Confirmed gabapentin 400 mg capsule 400 mg PO TID 06/05/22 10/05/22 omeprazole 20 mg capsule,delayed 20 mg PO DAILY 06/05/22 10/05/22 release Allergies Allergy/AdvReac Type Severity Reaction Status Date / Time No Known Allergies Allergy Verified 01/01/23 11:03 Review of Systems Review of Systems: CONSTITUTIONAL: Denies fever, chills, or sweats. CARDIOVASCULAR: Denies chest pain, palpitations, or edema. RESPIRATORY: Denies cough or dyspnea. GASTROINTESTINAL: Denies abdominal pain, nausea, vomiting, or diarrhea. GENITOURINARY: Denies dysuria or hematuria. SKIN: Denies rash or itching. MUSCULOSKELETAL: Denies back pain, joint pain, or myalgia. NEUROLOGIC: Denies headache, numbness, dizziness, or weakness. PSYCHIATRIC: Denies anxiety or depression. Denies suicidal or homicidal ideations [facility] Past Medical History Medical History Alcoholic intoxication Anxiety Benzodiazepine intoxication Depression H/O: HTN (hypertension) Opioid abuse Substance abuse Surgical History Surgical History Hx laparoscopic cholecystectomy 06/06/22 Family History Family History Mother Patient's mother is in good health Father Patient's father is in good health Sibling Patient's brother is in good health Other Unknown family medical history Social History Social History Smoking packs per day: 1 Smoking cigarettes per day: 20.0 Years smoked: 12 Smoking pack-years: 12.00 Smoking status: Current every day smoker Tobacco type: cigarettes Second hand tobacco smoke exposure: No Alcohol intake: current Drinks per week: 8 Alcohol use details: 1-2 pt of whiskey per day Substance use: never Substance use type: opiates Lack of Transportation: YES Lack of Food: Never True Current Housing: I Have Housing Concerned About Future Housing: No Difficulty Paying Gas/Electric Bills: No Difficulty Paying for Meds: No Currently Unemployed: No Education: Trade/Vocational Certificate Difficulty w/ Childcare or Family Care: No Gender identity (if verbalized by the patient): Male Spiritual care concerns: No Exam Narrative: GENERAL: Well-developed, well-nourished, and in no acute distress. HEAD: Normocephalic, atraumatic. Healing laceration noted over the anterior bridge of the nose EYES: PERRLA and EOMI. ENT: Nares clear, no rhinorrhea or epistaxis. Mucous membranes moist. Oropharynx without tonsillar hypertrophy exudate or other lesions. CHEST: Clear to auscultation. No respiratory distress. No wheezes rales or rhonchi HEART: Regular rate and rhythm. No murmur heard. Normal peripheral pulses. ABDOMEN: Soft, nontender, nondistended, normal active bowel sounds. EXTREMITIES: Normal range of motion. No edema. SKIN: Warm, dry, no rash. NEURO: No focal deficits. Alert and oriented x3. Strength 5/5 in all extremities, sensation intact bilaterally PSYCH: Normal mood and affect. Course Course Emergency Course: 14:44 -the patient
[2023-01-01] MEDS: SODIUM CHLORIDE 0.9% IV 2,000 ML 999 ML IV CONT (14:38)
--- NOTE | 2023-01-10 08:18 | PC.NURSE ---
LATE ENTRY.1 LITER NS COMPLETED INFUSION AT 1600 01/01/2023
== END 2023-01-01 16:10 | disposition home or self-care (01) ==
PROVIDERS: Emergency Provider Preventive Medicine Aerospace Medicine; PCP Physician Assistant
DX: T40.411A Poisoning by fentanyl or fentanyl analogs, accidental (unintentional), initial encounter (principal); F11.10 Opioid abuse, uncomplicated; I10 Essential (primary) hypertension; F17.210 Nicotine dependence, cigarettes, uncomplicated; F41.9 Anxiety disorder, unspecified; F32.A Depression, unspecified; Z90.49 Acquired absence of other specified parts of digestive tract
CPT/HCPCS: 36415; 71045; 80053; 85025; 96360; 96361; 99283; J7030

== ENCOUNTER 2023-04-28 22:27 | Inpatient (IN) | payer OTHER, SELFPAY ==
--- NOTE | ~2023-04-28 | XR_ITS ---
EXAMINATION: XR hand RT min 3V INDICATION: Right hand pain TECHNIQUE: Three views of the right hand are obtained. COMPARISON: None available FINDINGS: No fracture, dislocation, or subluxation. The bones, soft tissues, and joint spaces are nor mal. IMPRESSION: 1. No acute osseous abnormality. Reviewed, dictated and finalized at location F. E PRACTITIONER MANAGER
[2023-04-28 22:26] VITALS: BP 156/92; PULSE 127; RESP 20; O2SAT 92
[2023-04-28 22:43] LABS: Basophils Percent Auto 0.4 % (0.2-1.2); Eosinophils Absolute Auto 0.1 K/mm3 (0-0.3); Eosinophils Percent Auto 0.7 % (0-4.4); Hemoglobin 13.8 g/dL (14.0-18.0); Immature Granulocyte Absolute 0.14 K/mm3 (0.00-0.031); Immature Granulocyte Percent A 1.7 % (0-0.5); Lymphocytes Absolute Auto 3.93 K/mm3 (0.9-3.2); Lymphocytes Percent Auto 48.3 % (18.3-44.2); Mean Corpuscular HGB Conc 32.9 g/dl (32-36); Mean Corpuscular Volume 91.3 fl (80-100); Mean Platelet Volume 9.8 fl (7.4-10.4); Monocytes Absolute Auto 0.4 K/mm3 (0.1-0.6); Monocytes Percent Auto 4.7 % (2.6-8.5); Neutrophils Absolute Auto 3.6 K/mm3 (1.3-6.7); Neutrophils Percent Auto 44.2 % (45.5-73.1); Platelet Count Result 319 k/mm3 (150-375); Red Cell Distribution Width 13.8 % (11.5-14.5); White Blood Count 8.1 K/mm3 (4.5-10.0)
--- NOTE | 2023-04-28 22:44 | ECG_ITS ---
Measurements Intervals [place] Rate: 129 P: 40 FL: 158 QRS: 64 QRSD: 94 T: 2 QT: 310 QTc: 455 Interpretive Statements SINUS TACHYCARDIA MINIMAL Q WAVES- INFERIOR LEADS BORDERLINE T WAVE ABNORMALITY- INFERIOR LEADS BASELINE ARTIFACT- I, III, AVL ABNORMAL ECG COMPARED TO ECG 11/03/2022 23:10:44 NO SIGNIFICANT CHANGES Electronically Signed On 04-29-2023 6:48:10 [employer] by Santiago Jung D.O.
[2023-04-28 22:53] LABS: Ethanol 295 mg/dL (<10)
[2023-04-28 23:02] LABS: Alanine Aminotransferase 150 U/L (6-50); Albumin Level 4.9 g/dL (3.5-5.1); Alkaline Phosphatase 105 U/L (38-126); Anion Gap 16 mmol/L (8-16); Aspartate Amino Transferase 107 U/L (17-59); Bilirubin,Total 0.5 mg/dL (0.2-1.3); Blood Urea Nitrogen 10 mg/dL (9-20); Calcium 9.2 mg/dL (8.4-10.2); Carbon Dioxide 25 mmol/L (22-30); Chloride 105 mmol/L (98-107); Estimated CRCL calculation 173 ml/min; Estimated Glomerular Filt Rate > 60; Glucose 114 mg/dL (65-110); Potassium 3.7 mmol/L (3.4-5.0); Sodium 146 mmol/L (137-145)
[2023-04-28 23:04] LABS: Appearance Urine Clear (Clear); Bacteria Urine None Seen /hpf; Bilirubin Urine Negative (Negative); Blood Urine Negative (Negative); Color Urine Yellow (Yellow); Glucose Urine UA Negative (Negative); Ketones Urine Trace mg/dL (Negative); Leukocyte Esterase Ur Negative LEU/UL (Negative); Nitrate Urine Negative (Negative); Protein Urine 2+ mg/dL (Negative); RBC Urine 0-2 /hpf (0-2); Specific Grav Ur 1.012 (1.001-1.035); Squamous Epithelial Cell Urine None seen /hpf (Few); WBC Urine 0-5 /hpf; pH Urine 5.5 (5.0-9.0)
[2023-04-28 23:06] VITALS: BP 152/92; PULSE 122; RESP 20; O2SAT 92
[2023-04-28 23:09] LABS: Add Urine Microscopic? YES
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
[2023-04-28] MEDS: SODIUM CHLORIDE 0.9% IV 1,000 ML 999 ML IV CONT (23:14)
[2023-04-28] MEDS: LORazepam INJ (*CRX) 2 MG/ML VIAL 1 MG IV PUSH (23:14)
[2023-04-28 23:20] LABS: Amphetamine Screen Urine Negative (Negative); Barbiturate Screen Urine Negative (Negative); Benzodiazepines Screen Urine Negative (Negative); Cannabinoid Screen Urine Negative (Negative); Cocaine Screen Urine Negative (Negative); Methadone Screen Urine Negative (Negative); Opiate Screen Urine Negative (Negative); Phencyclidine Screen Urine Negative (Negative)
[2023-04-28] MEDS: THIAMINE HCL INJ 100 MG, FOLIC ACID INJ 1 MG, MAGNESIUM SULFATE INJ 1 GM in LACTATED RI... IV CONT (23:34)
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
[2023-04-29] VITALS (24 sets, daily range): BP systolic 113–155; BP diastolic 54–102; PULSE 57–134; RESP 12–21; TEMP 36.4–36.7; O2SAT 94–100; BMI 35.6
[2023-04-29] MEDS: chlordiazePOXIDE (*CRX) 25 MG CAPSULE 50 MG PO ×5 (00:18→23:56)
--- NOTE | 2023-04-29 01:03 | PC.NURSE ---
Daylight Savings Time For Daylight Savings Time Ending in the Fall - Clocks are moved back. For Daylight Savings Time Beginning in the Spring - Clocks are moved ahead. For [facility], the time of change occurs at 0200 hrs. Time is taken from the client server programmer. This entry on the patient's chart recognizes the change in time reflected during documentation. Example: 2 entries for vital signs may be charted for 0200 hrs.
[2023-04-29] MEDS: dexmedeTOMIDine 400 MCG/100 ML 400 MCG/100 ML BAG 14.46 MCG IV CONT ×4 (01:08→23:55)
--- NOTE | 2023-04-29 01:09 | PC.NURSE ---
This patient, Antony Oswald, was admitted to Intensive Care Unit-4. Patient/family oriented to hospital policies and general routines including ID bracelet, bed and alarms, visiting hours, pain management, procedures, bathroom and other care routines, personal items, smoking policy, room service/diet, and visiting hours. Information on how to activate the Rapid Response Team has been discussed. Patient/Family are encouraged to report perceived risks to care and to ask questions if they do not understand what they are told or what they should do.
--- NOTE | 2023-04-29 01:25 | PC.NURSE ---
Daylight Savings Time For Daylight Savings Time Ending in the Fall - Clocks are moved back. For Daylight Savings Time Beginning in the Spring - Clocks are moved ahead. For [facility], the time of change occurs at 0200 hrs. Time is taken from the server software engineer. This entry on the patient's chart recognizes the change in time reflected during documentation. Example: 2 entries for vital signs may be charted for 0200 hrs.
[2023-04-29] MEDS: LORazepam INJ (*CRX) 2 MG/ML VIAL IV PUSH (01:46)
--- NOTE | 2023-04-29 01:51 | PC.NURSE ---
Patient continuously asking for Methadone. Stated he receives it from a clinic daily. Dr. Brewer called and made aware of patient's request. Dr. Brewer given patient's current vital signs. Precedex drip ordered.
[2023-04-29] MEDS: dexmedeTOMIDine 400 MCG/100 ML 400 MCG/100 ML BAG 20.25 MCG IV CONT (04:27)
[2023-04-29 05:49] LABS: Glucose Point of Care 130 mg/dl (65-105)
[2023-04-29] MEDS: LACTATED RINGERS 1,000 ML 999 ML IV CONT (07:37)
[2023-04-29] MEDS: VENLAFAXINE HCL XR 75 MG CAP.ER.24H 150 MG PO (07:40)
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
--- NOTE | 2023-04-29 08:26 | PHAR ---
Atomoxetine 80 mg capsule home med identified in pharmacy and returned to ICU
[2023-04-29] MEDS: BUPRENORPHINE HCL (*CRX) 2 MG SUBLINGUAL TABLET 8 MG SUBLINGUAL ×2 (09:06→16:42)
[2023-04-29] MEDS: lamoTRIgine 50 MG TABLET PO (09:06)
[2023-04-29] MEDS: busPIRone HCL 10 MG TABLET 30 MG PO ×2 (09:07→16:43)
[2023-04-29] MEDS: METOPROLOL TARTRATE 50 MG TAB 100 MG PO ×4 (09:07→20:05)
[2023-04-29] MEDS: PANTOPRAZOLE 40 MG TABLET PO (09:08)
[2023-04-29] MEDS: ENOXAPARIN 40 MG/0.4 ML SYRINGE SUB-Q (09:09)
--- NOTE | 2023-04-29 10:36 | PC.NURSE ---
Updated patient's mother via telephone on patient condition. Mother states he is homeless. He is no longer allowed back to his grandmother's home. Care coordination member Harriet notified.
[2023-04-29 11:48] LABS: Glucose Point of Care 145 mg/dl (65-105)
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
--- NOTE | 2023-04-29 13:12 | PC.NURSE ---
Updated mother via telephone about patient status and process for psychological evaluation.
[2023-04-29 16:46] LABS: Glucose Point of Care 117 mg/dl (65-105)
[2023-04-29] MEDS: ONDANSETRON INJ 4 MG/2 ML VIAL IV PUSH (20:03)
[2023-04-29] MEDS: traZODone HCL 50 MG TABLET 300 MG PO (20:04)
[2023-04-29] MEDS: DOXEPIN HCL 25 MG CAPSULE 75 MG PO (20:04)
[2023-04-29] MEDS: cloNIDine HCL 0.1 MG TABLET PO (20:07)
[2023-04-29] MEDS: clonazePAM (*CRX) 0.5 MG TABLET PO (20:07)
[2023-04-30] VITALS (23 sets, daily range): BP systolic 117–148; BP diastolic 67–88; PULSE 47–96; RESP 12–20; TEMP 36.4–37.1; O2SAT 96–100
[2023-04-30] MEDS: chlordiazePOXIDE (*CRX) 25 MG CAPSULE 50 MG PO ×3 (05:56→17:27)
[2023-04-30 06:31] LABS: Glucose Point of Care 141 mg/dl (65-105)
[2023-04-30 07:45] LABS: Alanine Aminotransferase 87 U/L (6-50); Albumin Level 3.8 g/dL (3.5-5.1); Alkaline Phosphatase 72 U/L (38-126); Anion Gap 6 mmol/L (8-16); Aspartate Amino Transferase 50 U/L (17-59); Bilirubin,Total 0.6 mg/dL (0.2-1.3); Blood Urea Nitrogen 6 mg/dL (9-20); Calcium 8.8 mg/dL (8.4-10.2); Carbon Dioxide 23 mmol/L (22-30); Chloride 103 mmol/L (98-107); Estimated CRCL calculation 203 ml/min; Estimated Glomerular Filt Rate > 60; Glucose 134 mg/dL (65-110); Lipase 61 U/L (23-300); Magnesium 2.1 mg/dL (1.6-2.3); Potassium 3.7 mmol/L (3.4-5.0); Sodium 132 mmol/L (137-145)
[2023-04-30] MEDS: VENLAFAXINE HCL XR 75 MG CAP.ER.24H 150 MG PO (07:57)
[2023-04-30] MEDS: METOPROLOL TARTRATE 50 MG TAB 100 MG PO ×4 (08:01→20:06)
[2023-04-30] MEDS: BUPRENORPHINE HCL (*CRX) 2 MG SUBLINGUAL TABLET 8 MG SUBLINGUAL ×2 (08:01→17:27)
[2023-04-30] MEDS: PANTOPRAZOLE 40 MG TABLET PO (08:02)
[2023-04-30] MEDS: busPIRone HCL 10 MG TABLET 30 MG PO ×2 (08:02→17:28)
[2023-04-30] MEDS: ENOXAPARIN 40 MG/0.4 ML SYRINGE SUB-Q (08:02)
[2023-04-30] MEDS: lamoTRIgine 50 MG TABLET PO (08:02)
[2023-04-30 08:12] LABS: Basophils Percent Auto 0.2 % (0.2-1.2); Eosinophils Absolute Auto 0.1 K/mm3 (0-0.3); Eosinophils Percent Auto 1.8 % (0-4.4); Hemoglobin 10.8 g/dL (14.0-18.0); Immature Granulocyte Absolute 0.01 K/mm3 (0.00-0.031); Immature Granulocyte Percent A 0.2 % (0-0.5); Lymphocytes Absolute Auto 1.94 K/mm3 (0.9-3.2); Lymphocytes Percent Auto 39.4 % (18.3-44.2); Mean Corpuscular HGB Conc 32.7 g/dl (32-36); Mean Corpuscular Hemoglobin 29.2 pg (26-34); Mean Corpuscular Volume 89.2 fl (80-100); Monocytes Absolute Auto 0.4 K/mm3 (0.1-0.6); Monocytes Percent Auto 8.9 % (2.6-8.5); Neutrophils Absolute Auto 2.4 K/mm3 (1.3-6.7); Neutrophils Percent Auto 49.5 % (45.5-73.1); Platelet Count Result 182 k/mm3 (150-375); White Blood Count 4.9 K/mm3 (4.5-10.0)
[2023-04-30] MEDS: clonazePAM (*CRX) 0.5 MG TABLET PO ×2 (11:29→20:07)
--- NOTE | 2023-04-30 11:50 | PC.NURSE ---
Report given to Annie RN.
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
[2023-04-30 14:39] LABS: SARS-CoV-2 RNA PCR Negative (Negative)
[2023-04-30] MEDS: cloNIDine HCL 0.1 MG TABLET PO (16:13)
[2023-04-30] MEDS: NICOTINE (*PBKC) 21 MG PATCH 1 PATCH TRANSDERM (17:26)
[2023-04-30] MEDS: DOXEPIN HCL 25 MG CAPSULE 75 MG PO (20:06)
[2023-04-30] MEDS: traZODone HCL 50 MG TABLET 300 MG PO (21:08)
[2023-04-30] MEDS: ACETAMINOPHEN 500 MG TABLET 1000 MG (21:09)
[2023-05-01] VITALS: PULSE 71
[2023-05-01 02:00] VITALS: BP 171/91; PULSE 71
--- NOTE | 2023-05-01 02:44 | PC.NURSE ---
pt transferred to [facility] via [facility]
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
== END 2023-05-01 02:48 | disposition short-term general hospital (02) | DRG 897 ==
LOC: ANHED 04-29 00:27 → ANHICU 04-29 00:38
PROVIDERS: Internal Medicine; Admitting Provider Internal Medicine; Emergency Provider Physician Assistant; PCP Physician Assistant; Visit Provider Student in an Organized Health Care Education/Training Program
DX: F10.129 Alcohol abuse with intoxication, unspecified (principal); R45.851 Suicidal ideations; F11.13 Opioid abuse with withdrawal; Y90.8 Blood alcohol level of 240 mg/100 ml or more; F17.210 Nicotine dependence, cigarettes, uncomplicated; F41.8 Other specified anxiety disorders; I10 Essential (primary) hypertension; R74.8 Abnormal levels of other serum enzymes; S61.411A Laceration without foreign body of right hand, initial encounter; W22.09XA Striking against other stationary object, initial encounter; Z28.21 Immunization not carried out because of patient refusal; Z11.52 Encounter for screening for COVID-19; Z90.49 Acquired absence of other specified parts of digestive tract
CPT/HCPCS: 36415; 73130; 80053; 80307; 81001; 82948; 83690; 83735; 84100; 84443; 85025; 87426; 87635; 93005; 96361; 96365; 96366; 96374; 96375; 99285; A9270; C9803; G0378; J1650; J2060; J2405; J3411; J3475; J7030; J7120

== ENCOUNTER 2023-08-06 10:26 | Emergency (ER) | payer OTHER, SELFPAY ==
[2023-08-06 10:39] VITALS: BP 166/90; PULSE 106; RESP 18; TEMP 36.8; O2SAT 98
--- NOTE | 2023-08-06 13:55 | ED.GENADULT ---
HPI - General Adult General Chief complaint: Psychiatric Symptoms Stated complaint: psych med refill, ETOH/suboxone detox, hallucinati Time Seen by Provider: 08/06/23 13:00 History of Present Illness HPI narrative: Patient is a 32-year-old male who presents ER for medication refill. He would like refills of his Ambien, risperidone, and Suboxone. He has scheduled follow-up with his psychiatrist later this week. chart review shows recent prescriptions. Reports he was accidentally taking his risperidone and correct by a but does admit that he is taking his Ambien more often than he is supposed to. No SI/HI. Related Data Home Medications Medication Instructions Recorded Confirmed omeprazole 20 mg capsule,delayed 20 mg PO DAILY 06/05/22 04/29/23 release atomoxetine 80 mg capsule 80 mg PO DAILY 04/29/23 04/29/23 buprenorphine HCl 8 mg sublingual 8 mg sublingual BID 04/29/23 04/29/23 tablet buspirone 30 mg tablet 30 mg PO BID 04/29/23 04/29/23 clonazepam 0.5 mg tablet 0.5 mg PO Q8H PRN Anxiety 04/29/23 04/29/23 clonidine HCl 0.1 mg tablet 0.1 mg PO TID PRN Anxiety 04/29/23 04/29/23 doxepin 25 mg capsule 75 mg PO HS 04/29/23 04/29/23 lamotrigine 25 mg tablet 50 mg PO DAILY 04/29/23 04/29/23 metformin 1,000 mg tablet 1,000 mg PO BIDWM 04/29/23 04/29/23 methocarbamol 750 mg tablet 750 mg PO Q8H PRN Muscle Spasm 04/29/23 04/29/23 metoprolol tartrate 100 mg tablet 100 mg PO QID 04/29/23 04/29/23 trazodone 150 mg tablet 300 mg PO HS 04/29/23 04/29/23 Allergies Allergy/AdvReac Type Severity Reaction Status Date / Time No Known Allergies Allergy Verified 05/11/23 08:33 Review of Systems Gastrointestinal: Gastrointestinal: Denies abdominal pain, Denies diarrhea, Reports nausea and Denies vomiting Neurologic: Reports system reviewed and no additional complaints, except as documented Psychiatric: Psychiatric: Reports anxiety, Denies depression, Denies homicidal ideation and Denies suicidal ideation PMF Past Medical History Medical History Alcoholic intoxication Anxiety Benzodiazepine intoxication Depression H/O: HTN (hypertension) Opioid abuse Substance abuse Surgical History Surgical History Hx laparoscopic cholecystectomy 06/06/22 Family History Family History Mother Patient's mother is in good health Father Patient's father is in good health Sibling Patient's brother is in good health Other Unknown family medical history Social History Social History Smoking packs per day: 1.5 Smoking cigarettes per day: 30.0 Years smoked: 15 Smoking pack-years: 22.50 Smoking status: Current every day smoker Tobacco type: cigarettes Second hand tobacco smoke exposure: No Alcohol intake: current Drinks per week: 35 Alcohol use details: 1-2 pt of whiskey per day Substance use: current Substance use type: does not use Lack of Transportation: YES Lack of Food: Never True Current Housing: I Do Not Have Housing Concerned About Future Housing: YES Difficulty Paying Gas/Electric Bills: Decline to Answer Difficulty Paying for Meds: YES Currently Unemployed: YES Education: High School Diploma/GED Difficulty w/ Childcare or Family Care: Decline to Answer Gender identity (if verbalized by the patient): Male Spiritual care concerns: No Exam Narrative: GENERAL: Well-appearing, well-nourished, and in no acute distress. HEAD: Normocephalic, atraumatic. ENT: Mucous membranes moist. CHEST: Clear to auscultation. No respiratory distress. HEART: Regular rate and rhythm. Normal peripheral pulses. EXTREMITIES: Normal range of motion. No edema. NEURO: . Alert and oriented x3. PSYCH: Normal mood and affect. Course Course Emergency Course: Will not f
== END 2023-08-06 14:31 | disposition home or self-care (01) ==
LOC: ANHED 14:26
PROVIDERS: Emergency Provider Emergency Medicine; PCP Physician Assistant
DX: F11.10 Opioid abuse, uncomplicated (principal); F41.9 Anxiety disorder, unspecified; F32.A Depression, unspecified; Z76.0 Encounter for issue of repeat prescription; I10 Essential (primary) hypertension; F17.210 Nicotine dependence, cigarettes, uncomplicated; Z90.49 Acquired absence of other specified parts of digestive tract; Z79.84 Long term (current) use of oral hypoglycemic drugs
CPT/HCPCS: 99281

== ENCOUNTER 2023-10-24 10:37 | Outpatient (CLI) | payer OTHER, SELFPAY ==
[2023-10-24 11:21] LABS: Basophils Percent Auto 0.5 % (0.2-1.2); Eosinophils Absolute Auto 0.1 K/mm3 (0-0.3); Eosinophils Percent Auto 0.9 % (0-4.4); Hematocrit 41.1 % (42.0-52.0); Hemoglobin 13.3 g/dL (14.0-18.0); Immature Granulocyte Absolute 0.05 K/mm3 (0.00-0.031); Immature Granulocyte Percent A 0.6 % (0-0.5); Lymphocytes Absolute Auto 2.01 K/mm3 (0.9-3.2); Lymphocytes Percent Auto 23.8 % (18.3-44.2); Mean Corpuscular HGB Conc 32.4 g/dl (32-36); Mean Corpuscular Hemoglobin 29.8 pg (26-34); Mean Corpuscular Volume 92.2 fl (80-100); Mean Platelet Volume 11.1 fl (7.4-10.4); Monocytes Absolute Auto 0.7 K/mm3 (0.1-0.6); Monocytes Percent Auto 8.2 % (2.6-8.5); Neutrophils Absolute Auto 5.6 K/mm3 (1.3-6.7); Platelet Count Result 246 k/mm3 (150-375); Red Blood Count 4.46 M/mm3 (4.6-6.20); Red Cell Distribution Width 13.9 % (11.5-14.5); White Blood Count 8.4 K/mm3 (4.5-10.0)
[2023-10-24 11:35] LABS: Alanine Aminotransferase 28 U/L (6-50); Albumin Level 5.4 g/dL (3.5-5.1); Alkaline Phosphatase 89 U/L (38-126); Anion Gap 10 mmol/L (4-12); Aspartate Amino Transferase 29 U/L (17-59); Bilirubin,Total 0.7 mg/dL (0.2-1.3); Blood Urea Nitrogen 12 mg/dL (9-20); Calcium 10.2 mg/dL (8.4-10.2); Carbon Dioxide 27 mmol/L (22-30); Chloride 102 mmol/L (98-107); Estimated Glomerular Filt Rate > 60; Glucose 104 mg/dL (65-110); Potassium 4.8 mmol/L (3.4-5.0); Sodium 139 mmol/L (137-145)
[2023-10-27 23:59] LABS: Testosterone Total 233 ng/dL (250-1100)
== END 2023-10-24 10:38 | disposition home or self-care (01) ==
PROVIDERS: PCP Physician Assistant; Visit Provider Internal Medicine
DX: R53.83 Other fatigue (principal); R74.8 Abnormal levels of other serum enzymes; R68.82 Decreased libido; D64.9 Anemia, unspecified
CPT/HCPCS: 36415; 80053; 84403; 84443; 85025

== ENCOUNTER 2023-11-07 10:34 | Outpatient (CLI) | payer OTHER, SELFPAY ==
[2023-11-09 18:52] LABS: Testosterone Total 87 ng/dL (250-1100)
[2023-11-11 02:08] LABS: FSH 2.1 mIU/mL (1.4-12.8); LH 0.7 mIU/mL (1.5-9.3); Prolactin 10.5 ng/mL (2.0-18.0)
== END 2023-11-07 10:35 | disposition home or self-care (01) ==
LOC: ANHLAB 10:36
PROVIDERS: PCP Physician Assistant; Visit Provider Internal Medicine
DX: R79.89 Other specified abnormal findings of blood chemistry (principal)
CPT/HCPCS: 36415; 83001; 83002; 84146; 84403

== ENCOUNTER 2024-05-27 10:21 | Outpatient (CLI) | payer OTHER, SELFPAY ==
[2024-05-27 10:47] LABS: Basophils Percent Auto 0.5 % (0.2-1.2); Eosinophils Absolute Auto 0.1 K/mm3 (0-0.3); Eosinophils Percent Auto 1.8 % (0-4.4); Hematocrit 44.3 % (42.0-52.0); Hemoglobin 15.1 g/dL (14.0-18.0); Immature Granulocyte Absolute 0.03 K/mm3 (0.00-0.031); Immature Granulocyte Percent A 0.5 % (0-0.5); Lymphocytes Absolute Auto 1.46 K/mm3 (0.9-3.2); Lymphocytes Percent Auto 25.7 % (18.3-44.2); Mean Corpuscular HGB Conc 34.1 g/dl (32-36); Mean Corpuscular Hemoglobin 30.6 pg (26-34); Mean Corpuscular Volume 89.7 fl (80-100); Mean Platelet Volume 10.8 fl (7.4-10.4); Monocytes Absolute Auto 0.6 K/mm3 (0.1-0.6); Monocytes Percent Auto 9.9 % (2.6-8.5); Neutrophils Absolute Auto 3.5 K/mm3 (1.3-6.7); Neutrophils Percent Auto 61.6 % (45.5-73.1); Platelet Count Result 216 k/mm3 (150-375); Red Blood Count 4.94 M/mm3 (4.6-6.20); Red Cell Distribution Width 13.1 % (11.5-14.5); White Blood Count 5.7 K/mm3 (4.5-10.0)
[2024-05-27 11:02] LABS: Alanine Aminotransferase 111 U/L (6-50); Albumin Level 4.8 g/dL (3.5-5.1); Alkaline Phosphatase 68 U/L (38-126); Anion Gap 5 mmol/L (4-12); Aspartate Amino Transferase 92 U/L (17-59); Bilirubin,Total 0.9 mg/dL (0.2-1.3); Blood Urea Nitrogen 10 mg/dL (9-20); Calcium 11.1 mg/dL (8.4-10.2); Carbon Dioxide 33 mmol/L (22-30); Chloride 98 mmol/L (98-107); Cholesterol 200 mg/dL (0-200); Estimated Glomerular Filt Rate > 60; Glucose 122 mg/dL (65-110); HDL Direct 49 mg/dL; Potassium 3.9 mmol/L (3.4-5.0); Sodium 136 mmol/L (137-145); Triglycerides 150 mg/dL (<150)
[2024-05-27 11:13] LABS: Hemoglobin A1C 5.3 % (<5.7); LDL Cholesterol Direct 114 mg/dL
[2024-05-28 08:08] LABS: FSH 2.9 mIU/mL (1.4-12.8); LH 2.4 mIU/mL (1.5-9.3)
[2024-05-31 21:13] LABS: Testosterone Free 75.5 pg/mL (35.0-155.0); Testosterone Total 430 ng/dL (250-1100)
== END 2024-05-27 10:22 | disposition home or self-care (01) ==
LOC: ANHLAB 10:22
PROVIDERS: PCP Physician Assistant; Visit Provider Internal Medicine
DX: Z00.00 Encounter for general adult medical examination without abnormal findings (principal); E78.5 Hyperlipidemia, unspecified; R53.83 Other fatigue; R73.9 Hyperglycemia, unspecified
CPT/HCPCS: 36415; 80053; 80061; 83001; 83002; 83036; 84402; 84403; 84443; 85025

== ENCOUNTER 2024-12-05 09:43 | Outpatient (CLI) | payer OTHER, SELFPAY ==
[2024-12-05 10:36] LABS: Alanine Aminotransferase 54 U/L (6-50); Albumin Level 4.5 g/dL (3.5-5.1); Alkaline Phosphatase 82 U/L (38-126); Anion Gap 8 mmol/L (4-12); Aspartate Amino Transferase 45 U/L (17-59); Bilirubin,Total 0.4 mg/dL (0.2-1.3); Blood Urea Nitrogen 11 mg/dL (9-20); Calcium 9.5 mg/dL (8.4-10.2); Carbon Dioxide 28 mmol/L (22-30); Chloride 101 mmol/L (98-107); Cholesterol 205 mg/dL (0-200); Estimated Glomerular Filt Rate > 60; Glucose 117 mg/dL (65-110); HDL Direct 64 mg/dL; Potassium 3.9 mmol/L (3.4-5.0); Sodium 137 mmol/L (137-145); Triglycerides 190 mg/dL (<150)
[2024-12-05 10:49] LABS: LDL Cholesterol Direct 107 mg/dL
[2024-12-06 23:43] LABS: Amphetamines POSITIVE ng/mL (<500); Barbiturates NEGATIVE ng/mL (<300); Benzodiazepines POSITIVE ng/mL (<100); Cocaine Metabolite NEGATIVE ng/mL (<150); Marijuana Metabolite NEGATIVE ng/mL (<20); Methadone Metabolite NEGATIVE ng/mL (<100); Opiates NEGATIVE ng/mL (<100); Oxidant NEGATIVE mcg/mL (<200); PCP NEGATIVE ng/mL (<25); pH 6.6 (4.5-9.0)
== END 2024-12-05 09:44 | disposition home or self-care (01) ==
LOC: ANHLAB 09:47
PROVIDERS: PCP Internal Medicine; Visit Provider Family Medicine
DX: Z00.00 Encounter for general adult medical examination without abnormal findings (principal); E66.01 Morbid (severe) obesity due to excess calories; I10 Essential (primary) hypertension
CPT/HCPCS: 36415; 80053; 80061; 80307

== ENCOUNTER 2024-12-19 09:47 | Outpatient (CLI) | payer OTHER, SELFPAY ==
[2024-12-19 10:17] LABS: Basophils Percent Auto 0.6 % (0.2-1.2); Eosinophils Absolute Auto 0.1 K/mm3 (0-0.3); Eosinophils Percent Auto 1.5 % (0-4.4); Hematocrit 41.9 % (42.0-52.0); Immature Granulocyte Absolute 0.03 K/mm3 (0.00-0.031); Immature Granulocyte Percent A 0.4 % (0-0.5); Lymphocytes Absolute Auto 1.68 K/mm3 (0.9-3.2); Lymphocytes Percent Auto 25.1 % (18.3-44.2); Mean Corpuscular HGB Conc 33.4 g/dl (32-36); Mean Corpuscular Hemoglobin 30.1 pg (26-34); Mean Corpuscular Volume 90.1 fl (80-100); Mean Platelet Volume 10.9 fl (7.4-10.4); Monocytes Absolute Auto 0.5 K/mm3 (0.1-0.6); Monocytes Percent Auto 7.8 % (2.6-8.5); Neutrophils Absolute Auto 4.3 K/mm3 (1.3-6.7); Neutrophils Percent Auto 64.6 % (45.5-73.1); Platelet Count Result 227 k/mm3 (150-375); Red Blood Count 4.65 M/mm3 (4.6-6.20); Red Cell Distribution Width 13.8 % (11.5-14.5); White Blood Count 6.7 K/mm3 (4.5-10.0)
[2024-12-19 10:37] LABS: Calcium 9.3 mg/dL (8.4-10.2)
[2024-12-20 13:59] LABS: Ionized Calcium. 5.1 mg/dL (4.7-5.5)
[2024-12-23 17:53] LABS: Testosterone Free 69.9 pg/mL (35.0-155.0); Testosterone Total 316 ng/dL (250-1100)
== END 2024-12-19 09:48 | disposition home or self-care (01) ==
PROVIDERS: PCP Internal Medicine; Visit Provider Internal Medicine
DX: E83.52 Hypercalcemia (principal); R79.89 Other specified abnormal findings of blood chemistry; Z51.81 Encounter for therapeutic drug level monitoring
CPT/HCPCS: 36415; 82310; 82330; 82670; 84402; 84403; 85025

== ENCOUNTER 2025-03-20 10:52 | Outpatient (CLI) | payer OTHER, SELFPAY ==
--- OUTSIDE RECORDS SUMMARY | 2025-03-20 09:45 | XMS_ITS | Encounter Summary ---
Author Organization [facility] Healthcare Address [address] [place] [id number] Care Team Providers Care Nurse Educator Name Role Phone Amol Reyez MD Primary Care Provi vijay Reason for Visit * Reason Comments Follow-up [facility] Encounter Details Date Type Department Care Team (Late st Contact Info) Description 03/20/2025 9:45 AM CDT Telemedicine [facility] Medical [facility] Family Medicine [address] [place] [address] Amol Reyez MD [address] [place] [address] 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 2-3 times a week 12/09/2024 Q2: How many drinks containi ng alcohol do you have on a typical day when you are drinking? 3 or 4 12/09/2024 Q3: How often do you have si x or more drinks on one occasion? Weekly 12/09/2024 PHQ-2 Answer Date Recorded PHQ-2 Total Score 6 03/20/2025 PHQ-9 Answer Date Recorded PHQ-9 Total Score 16 03/20/2025 Social Connection and Isolation Panel Answer Date Recorded In a typical week, how many times do you talk on the phone with family, friends, or neighbors? More than three times a week 02/05/2025 How often do you get togethe r with friends or relatives? More than three times a week 02/05/2025 How often do you attend chur ch or episcopalian services? Never 02/05/2025 Do you belong to any clubs o r organizations such as sabianism groups, unions, fraternal or athletic groups, or school groups? No 02/05/2025 How often do you attend meet ings of the clubs or organizations you belong to? Never 02/05/2025 Are you , , di vorced, , never , or living with a partner? Never 02/05/2025 Overall Financial Resource Strain (CARDIA) Answe r Date Recorded How hard is it for you to pa y for the very basics like food, housing, medical care, and heating? Not very hard 02/05/2025 Hunger Vital Sign Answer Date Recorded Within the past 12 months, y ou worried that your food would run out before you got the money to buy more. Never true 02/06/20 25 Within the past 12 months, t he food you bought just didn't last and you didn't have money to get more. Never true 02/05/2025 PRAPARE - Transportation Answer Date Re corded In the past 12 months, has l ack of transportation kept you from medical appointments or from getting medications? No 01/23 In the past 12 months, has l ack of transportation kept you from meetings, work, or from getting things needed for daily living? No 02/05/2025 Housing Stability Vital Sign Answer Braulio e Recorded In the last 12 months, was t here a time when you were not able to pay the mortgage or rent on time? No 02/05/2025 In the past 12 months, how m any times have you moved where you were living? 0 02/05/2025 At any time in the past 12 m [facility], were you homeless or living in a [place] facility (including now)? No 02/05/2025 [facility] Utilities Answer Date Recorded In the past 12 months has th e electric, gas, oil, or water company threatened to shut off services in your home? No 02/05/2025 Personal Safety Answer Date Recorded Have you ever been in or are you currently in a harmful physical or emotional relationship or is someone making you feel afraid or unsafe? 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 Gender Identity Not on file Sexual Orientation Not on file documented as of this encounter Last Filed Vital Signs Vital Sign Reading Time Taken Comments Blood Pressure - - Pulse - - Temperature - - Respiratory Rate - - Oxygen Saturation - - Inhaled Oxygen Concentration - - Weight 111.1 kg (245 lb) 03/20/2025 9:27 AM CDT Height 180.3 cm (5' 11) 03/20/2025 9:27 AM CDT Body Mass Index 34.17 03/20/2025 9:27 AM CDT documented in this encounter Ordered Prescriptions Prescription Sig Dispense Quantity Refills Last Filled Start Date End Date traZODone (DESYREL) 100 mg tabletIndications: insomnia associated with depression Take 2 tablets (200 mg total) by mouth nightly 03/20/2025 documented in this encounter Plan of Treatment Not on file documented as of this encounter Visit Diagnoses Diagnosis Severe major depression without psychotic features (HCC)- Primary Major depressive disorder, single episode, severe, without mention of psychotic behavior Severe opioid use disorder on maintenance therapy (HCC) Alcohol use disorder, severe documented in this encounter Discontinued Medications Medication Sig Discontinue Reason Start Date End Da te buprenorphine-naloxone (SUBOXONE) 8-2 mg per filmIndications:Preventi on of Opioid Abuse Place 1 Film under the tongue 3 times a day for 7 days Therapy completed 02/09/2025 03/20/2025 traZODone (DESYREL) 100 mg tablet TAKE 3 TABLETS(300 MG) BY MOUTH EVERY NIGHT 11/12/2024 03/20/2025 ARIPiprazole (ABILIFY) 10 mg tablet Take 1 tablet (10 mg total) by mouth daily Therapy completed 12/09/2024 03/20/2025 documented as of this encounter Historical Medications * This list may reflect changes made after this encounter. cariprazine (Vraylar) 3 mg capsule capsule Take 1 capsule (3 mg total) by mouth nightly citalopram (CeleXA) 40 mg tablet Take 1 tablet (40 mg total) by mouth daily added in this encounter Orders Appointment Requests Count Last Ordered Date Fi rst Ordered Date [facility] TICKET SCHED - FOLLOW-UP APPT 1 03/20 documented in this encounter Care Teams Nurse Educator Relationship Specialty Start Date End Date Amol Reyez MD [address] [address] PCP - General Family Medicine 03/10/24 documented as of this encounter
--- OUTSIDE RECORDS SUMMARY | 2025-03-20 10:56 | XMS_ITS | Clinical Summary ---
Author Organization [facility] Address [address] [place] [address] Care Team Providers Care Erp Developer Name Role Phone Shoaib Aggarwal PA-C Primary Care Provide r Source Comments [facility],non-owned Affiliates and Associated Physician Practices is amultiple site organization consisting of ambulatory clinics and hospital sitesin [place], [place], [place] and [place]. This disclosure is being madepursuant to the Care Everywhere program and may not contain all information available regarding this patient. Last updated 18.[facility] Allergies No known active allergies Medications * Be aware that medications may not be up to date on this document. Alwaysverify current medications with the patient. amitriptyline (ELAVIL) 50 MG tablet take one or two tablets by mouth every night at bedtime as needed for sleep 9 Active buprenorphine (SUBUTEX) 8 MG tablet DISSOLVE ONE T ON THE TONGUE QID 9 Active ZUBSOLV 5.7-1.4 MG tablet DISSLVE 1 T UNDER THE TONGUE TID 0 Active busPIRone (BUSPAR) 15 MG tablet 0 Active cloNIDine (CATAPRES) 0.1 MG tablet TK 2 TS PO TID 0 Active VYVANSE 30 MG capsule TK ONE C PO D 9 Active metoprolol tartrate (LOPRESSOR) 50 MG tablet 0 Active mirtazapine (REMERON) 15 MG tablet 0 Active omeprazole (PRILOSEC) 20 MG capsule TAKE ONE CAPSULE BY MOUTH EVERY DAY NEEDED 0 Active VIIBRYD 20 MG tablet Take 40 mg by mouth once daily 0 Active naloxone HCl (Narcan) 4 MG/0.1ML nasal spray Lanse 1 (one) spray into the nose as needed (May repeat every 2 min in alternating nostrils until emergency medical help arrives for overdose) 2 Each 3 Active Active Problems Problem Noted Date Diagnosed Date Metabolic acidosis 12/30/2022 Hypoxia 12/30/2022 Opiate overdose, accidental or unintentional, initial encounter 12/30/2022 Accidental overdose, initial encounter 3 Social History Tobacco Use Types Packs/Day Years Used Date Smoking Tobacco: Smoker, Current Status Unknown Cigarettes Smokeless Tobacco: Never Alcohol Use Standard Drinks/Week Comments Yes 0 (1 standard drink = 0.6 oz pur e alcohol) AUDIT-C Answer Date Recorded Q1: How often do you have a drink containing alc ohol? Patient declined 12/30/2022 Q2: How many drinks containi ng alcohol do you have on a typical day when you are drinking? Patient declined 12/30/2022 Q3: How often do you have si x or more drinks on one occasion? 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 Gender Identity Not on file Sexual Orientation Not on file Last Filed Vital Signs Vital Sign Reading Time Taken Comments Blood Pressure 139/96 12/30/2022 9:16 PM CDT Pulse 113 12/30/2022 9:16 PM CDT Temperature 36.7 C (98 F) 12/30/2022 5:19 PM CDT Respiratory Rate 15 12/30/2022 9:16 PM CDT Oxygen Saturation 97% 12/30/2022 9:16 PM CDT Inhaled Oxygen Concentration - - Weight 103.4 kg (228 lb) 12/30/2022 5:19 PM CDT Height 177.8 cm (5' 10) 12/30/2022 5:19 PM CDT Body Mass Index 32.71 12/30/2022 5:19 PM CDT Plan of Treatment Health Maintenance Due Date Last Done Comments HIV SCREENING 10/19/2007 HEPATITIS C SCREENING 10/14/2010 DTAP/TDAP/TD VACCINES (1 - Tdap) 10/19/2011 HEPATITIS B VACCINE (1 of 3 - 19+ 3-dose series) 10/19/2011 PNEUMOCOCCAL VACCINE (1 of 2 - PCV) 10/19/2011 HPV VACCINE (1 - 3-dose SCDM series) 10/19/2019 DEPRESSION SCREENING 06/25/2024 COVID-19 VACCINE (3 - 2024-2 6 season) 2025 01/05/2022, 02/16/2021 INFLUENZA VACCINE (#1) 2025 0, 04/23/2009 ZOSTER VACCINE (1 of 2) 2042 HIB VACCINE Aged Out No longer eligi ble based on patient's age to complete this topic MENINGOCOCCAL (Group B) VACCINE SHARED DECISION-MAKING Aged Out No longer eligible based on patient's age to complete this topic MENINGOCOCCAL GROUPS A/C/Y/W VACCINE Aged Out No longer eligible b ased on patient's age to [place] [address] [address] [address] Care Teams Erp Developer Relationship Specialty Start Date End Date Shoaib Aggarwal PA-C [address] [place] [address] PCP - General 08/13/19
--- OUTSIDE RECORDS SUMMARY | 2025-03-20 10:56 | XMS_ITS | Clinical Summary ---
Author Organization [facility] Health Address [address] [place] [address] Care Team Providers Care Electronic Sensing Equipment Assembler Name Role Phone Unavailable Primary Care Provider Unavailabl e Medications ibuprofen (ADVIL,MOTRIN) 600 mg tablet Take 1 tablet (600 mg total) by mouth every 6 (six) hours if needed for mild pain. 21 tablet 03/21/2023 Active Active Problems No known active problems Social History Tobacco Use Types Packs/Day Years Used Date Smoking Tobacco: Never Assessed Sex and Gender Information Value Date Recorded Sex Assigned at Not on file Legal Sex Male 11:07 AM PDT Gender Identity Not on file Sexual Orientation Not on file Last Filed Vital Signs Vital Sign Reading Time Taken Comments Blood Pressure 115/69 03/20/2023 1:34 PM PDT Pulse 87 03/20/2023 1:34 PM PDT Temperature - - Respiratory Rate - - Oxygen Saturation - - Inhaled Oxygen Concentration - - Weight - - Height - - Body Mass Index - - Plan of Treatment Health Maintenance Due Date Last Done Comments Dental Prophylaxis 1992 Dental Oral Exam 09/19/2023 03/20/2023 Dental X-Ray: Bitewings 09/19/2023 03/20/2023 Dental X-Ray: Full Mouth 03/22/2026 03/21/2023, 02/24 Dental X-Ray: Panoramic 03/22/2026 03/21/2023, 03/20 Procedures Procedure Name Priority Date/Time Associated Diagnosis Comments PANORAMIC RADIOGRAPHIC IMAGE Routine 03/20/2023 1:30 PM PDT INTRAORAL - COMPREHENSIVE SERIES OF RADIOGRAPHIC IMAGES Routine 03/20/2023 1:30 PM PDT COMPREHENSIVE ORAL EVALUATION - NEW OR ESTABLISHED PATIENT Routine 03/20/2023 1:30 PM PDT from Last 3 Months or Most Recently Relevant to Health Maintenance Insurance [facility] PPO
--- OUTSIDE RECORDS SUMMARY | 2025-03-20 10:56 | XMS_ITS | Encounter Summary ---
Author Organization [facility] Address [address] [place] [address] Care Team Providers Care Functional Analyst Name Role Phone Unavailable Primary Care Provider Unavailabl e Encounter Details Date Type Department Care Team (Late st Contact Info) Description 11/30/[address] [facility] Conversion [address] [place] [address] , Generic Conversion, Social History Tobacco Use Types Packs/Day Years Used Date Smoking Tobacco: Never Assessed Comments Unknown Sex and Gender Information Value Date Recorded Sex Assigned at Not on file Legal Sex Female 6:44 PM CDT Gender Identity Not on file Sexual Orientation Not on file documented as of this encounter Plan of Treatment Not on file documented as of this encounter Visit Diagnoses Not on filedocumented in this encounter
--- OUTSIDE RECORDS SUMMARY | 2025-03-20 10:56 | XMS_ITS | Clinical Summary ---
Author Organization [facility] Address [address] [place] [address] Care Team Providers Care Software Configuration Manager Name Role Phone Amol Reyez MD Primary Care Provi vijay Allergies No known active allergies Medications zolpidem CR (AMBIEN CR) 12.5 mg CR tablet TAKE 1 TABLET(12.5 MG) BY MOUTH EVERY NIGHT NEEDED FOR SLEEP 30 tablet 5 12/11/19 25 Active clonazePAM (KlonoPIN) 1 mg tabletIndicati ons:Panic Disorder Take 1 tablet (1 mg total) by mouth 3 (three) times a day as needed for anxiety 90 tablet 5 02/10/20 25 Active carvediloL (COREG) 12.5 mg tablet Take 1 tablet (12.5 mg total) by mouth 2 (two) times a day with meals 60 tablet 1 02/10/20 25 025 Active traZODone (DESYREL) 100 mg tabletIndicati ons:insomnia associated with depression Take 2 tablets (200 mg total) by mouth nightly 03/20/20 25 Active citalopram (CeleXA) 40 mg tablet Take 1 tablet (40 mg total) by mouth daily Active cariprazine (Vraylar) 3 mg capsule capsule Take 1 capsule (3 mg total) by mouth nightly Active traZODone (DESYREL) 100 mg tablet TAKE 3 TABLETS(300 MG) BY MOUTH EVERY NIGHT 90 tablet 3 11/13/19 25 025 Discontinued ARIPiprazole (ABILIFY) 10 mg tablet Take 1 tablet (10 mg total) by mouth daily 90 tablet 1 12/10/19 25 025 Discontinued(Th erapy completed) buprenorphine- naloxone (SUBOXONE) 8-2 mg per filmIndication s:Prevention of Opioid Abuse Place 1 Film under the tongue 3 times a day for 7 days 21 Film 02/10/20 25 025 Discontinued( erapy completed) Active Problems Problem Noted Date Diagnosed Date Severe major depression without psychotic featur es 03/03/2025 Psychosis 03/11/2024 Severe opioid use disorder on maintenance therap y 03/11/2024 GERD (gastroesophageal reflux disease) 10/19/2022 Primary hypertension 08/28/2022 10/19/2022 Resolved Problems Problem Noted Date Diagnosed Date Resolved Date Alcohol withdrawal syndrome without complication 02/05/2025 03/20/2025 Alcoholic 03/11/2024 03/20/2025 Brief psychotic disorder 07/19/2023 Left ankle swelling 07/19/2023 03/11/20 24 Bipolar affective disorder, most recent episode mixed 07/16/2023 03/11/2024 History of alcohol abuse 07/16/2023 Bipolar disorder 07/15/2023 03/20/2025 Hypoxia 12/30/2022 03/11/2024 Opiate overdose 12/30/2022 04/09/2024 Accidental overdose 12/30/2022 03/20/20 25 Metabolic acidosis 12/30/2022 4 Closed oblique fracture of w aist of scaphoid bone of left wrist 11/02/2022 03/11/2024 Class 2 severe obesity due t o excess calories with serious comorbidity and body mass index (BMI) of 37.0 to 37.9 in adult 09/19/2022 10/19/2022 Uncomplicated opioid dependence 08/28/2022 04/09/2024 Alcoholic ketoacidosis 08/28/2022 10/19/202203/11 Hypomagnesemia 08/28/2022 10/19/2022 03/11/2024 Moderate episode of recurren t major depressive disorder 08/28/2022 10/19/2022 03/03/2025 Withdrawal from benzodiazepine, with delirium 08/29/19 23 10/19/2022 03/20/2025 Alcohol abuse 05/12/2022 03/11/2024 Anxiety 05/12/2022 03/11/2024 Severe episode of recurrent major depressive disorder, without psychotic features 09/11/2019 Encounters Date Type Department Care Team Description 03/20/2025 9:45 AM CDT Telemedicine [facility] [address] [facility] [address] [place] [address] Amol Reyez MD Severe major depression without psychotic features (HCC) (Primary Dx); Severe opioid use disorder on maintenance therapy (HCC); Alcohol use disorder, severe 03/13/2025 Documentation [facility] Case Management [address] [place] [id number] Amanda Costa 03/12/2025 Orders Only [facility] [address] [facility] [address] [place] [phone] Amol Reyez MD 03/09/2025 Letter (Out) [facility] [address] [facility] [address] [place] [address] 03/03/2025 Telephone [facility] [address] [facility] [address] [place] [phone] Amol Reyez MD [facility] referral 03/02/2025 Orders Only [facility] [address] [facility] [address] [place] [phone] Amol Reyez MD 02/19/2025 Telephone [facility] [address] [facility] [address] [place] [address] Amol Reyez MD Hospital Follow Up 02/11/2025 4:52 PM CDT - 02/11/2025 11:59 PM CDT Hospital Encounter [facility] [address] [place] [address] Discharge Disposition: Discharge to home or self care 02/04/2025 11:21 PM CDT - 02/09/2025 10:25 AM CDT Hospital Encounter [address] [address] Gilberto Madsen MD Singh, Anjanya Devendra, MD Alcohol withdrawal syndrome without complication (HCC) (Primary Dx); Opioid abuse Discharge Disposition: Discharge to not defined facility 01/27/2025 Telephone [facility] [address] [facility] [address] [place] [phone] Amol Reyez MD Medical Question/Miscellane ous 12/19/2024 9:15 AM CDT Telemedicine [facility] [address] [facility] [address] [place] [phone] Amol Reyez MD Severe opioid use disorder on maintenance therapy (HCC) (Primary Dx) from Last 3 Months Immunizations Immunization Administration Dates Next Due DTP 05/06/1993,02/11/1993,1992 DTaP 01/22/1998 Hep A, Unspecified 01/08/2008,12/14/2006 Hep B, Unspecified 09/05/1993,02/11/1993, 993 HiB 05/06/1993,02/11/1993,1992 Influenza LAIV (Nasal) 03/03/2010 Influenza, Unspecified 12/09/2024(Deferr ed: Patient Refused),08/26/2023(Deferred: Patient Refused),04/23/2009 MMR 01/22/1998,10/31/1993 Meningococcal MCV4P (Menactra) 12/14/2006 Polio, Unspecified 01/22/1998,02/11/1993, 993 Td, Unspecified 07/02/2013 Tdap 03/13/2018,12/14/2006 Surgical History Surgery Date Site/Laterality Comments ORIF SCAPHOID W VASCULARIZED BONE GRAFT 09/20/2022 Left CHOLECYSTECTOMY 06/25/2021 - 06/24/2022 Medical History Medical History Date Comments ETOH abuse Scaphoid fracture Drug abuse Smoker Family History Medical History Relation Name Comments No Known Problems Father Diabetes type II Maternal Grandfather Heart disease Maternal Grandfather Gestational diabetes Mother Relation Name Status Comments Father Alive Maternal Grandfather Mother Alive Social History Tobacco Use Types Packs/Day Years Used Date Smoking Tobacco: Every Day Cigarettes 1 15 Smokeless Tobacco: Never Tobacco Cessation:Ready to Q uit: No; Counseling Given: Yes AUDIT-C Answer Date Recorded Q1: How often [...] often do you attend chur ch or islam services? Never 02/05/2025 Do you belong to any clubs o r organizations such as episcopal groups, unions, fraternal or athletic groups, or [...] any time in the past 12 m [facility], were you homeless or living in a long-term (including now)? 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 Gender Identity Not on file Sexual Orientation Not on file Obstetrics History Last Filed Vital Signs Vital Sign Reading Time Taken Comments Blood Pressure 147/94 02/09/2025 7:21 AM CDT Pulse 86 02/09/2025 7:21 AM CDT Temperature 36.3 C (97.3 F) 02/09/2025 7:21 AM CDT Respiratory Rate 20 02/09/2025 7:21 AM CDT Oxygen Saturation 99% 02/09/2025 7:21 AM CDT Inhaled Oxygen Concentration - - Weight 111.1 kg (245 lb) 03/20/2025 9:27 AM CDT Height 180.3 cm (5' 11) 03/20/2025 9:27 AM CDT Body Mass Index 34.17 03/20/2025 9:27 AM CDT Plan of Treatment Health Maintenance Due Date Last Done Comments Varicella Vaccines (1 of 2 - 13+ 2-dose series) 03/31/2010 HPV Vaccines (1 - 3-dose SCDM series) 10/19/2019 Covid-19 Vaccine (3 - season) 2025 01/05/2022, 02/16/2021 Influenza Vaccine (#1) 2025 03/03/2010, 2008 Pneumococcal vaccine <65 (1 of 2 - PCV) 11/24/2025 Postponed from 10/19/2011 (Patient declined, but will receive in the future) Regular Well Visit/Exam 18-64 12/09/2025 12/09/2024, 12/09/2024 Depression Screening 03/20/2026 03/20/2025, 03/11/2024, 03/11/2024 DTaP/Tdap/Td Vaccine (8 - Td or Tdap) 03/13/2028 03/13/2018, 07/02/2013, 12/14/2006, Additional history exists Hepatitis B Screening Completed 02/05/2025 , 09/05/1993, 02/11/1993, Additional history exists Hepatitis C Screening Completed 02/05/2025, 023 Procedures Procedure Name Priority Date/Time Associated Diagnosis Comments HIV 1/2 ANTIBODY PLUS P24 ANTIGEN Routine 02/11/2025 3:15 PM CDT EGFR Routine 02/08/2025 3:12 AM CDT COMPREHENSIVE METABOLIC PANEL Routine 02/08/2025 3:12 AM CDT EGFR Routine 02/07/2025 12:15 PM CDT COMPREHENSIVE METABOLIC PANEL Routine 02/07/2025 12:15 PM CDT EGFR Routine 02/05/2025 4:00 AM CDT CBC WITHOUT DIFFERENTIAL Routine 02/05/2025 4:00 AM CDT BASIC METABOLIC PANEL Routine 02/05/2025 4:00 AM CDT RPR Routine 02/05/2025 4:00 AM CDT HEPATITIS C ANTIBODY Routine 02/05/2025 4:00 AM CDT HEPATITIS B SURFACE ANTIBODY (IMMUNE STATUS) Routine 02/05/2025 4:00 AM CDT HEPATITIS B CORE ANTIBODY, TOTAL Routine 02/05/2025 4:00 AM CDT HEPATITIS B SURFACE ANTIGEN Routine 02/05/2025 4:00 AM CDT HEPATITIS A ANTIBODY, TOTAL Routine 02/05/2025 4:00 AM CDT HIV 1/2 ANTIBODY PLUS P24 ANTIGEN Routine 02/05/2025 4:[address] ABDOMEN PELVIS W CONTRAST ED 02/05/2025 1:41 AM CDT XR CHEST 1 VIEW ED 02/05/2025 1:38 AM CDT LIPASE Timed 02/04/2025 11:52 PM CDT TROPONIN T HIGH-SENSITIVITY 2-HOUR Timed 02/04/2025 11:52 PM CDT ECG 12-LEAD STAT 02/04/2025 11:45 PM CDT TROPONIN T HIGH-SENSITIVITY SERIES (BASELINE, 2HR, 4HR, 6HR) STAT 02/04/2025 9:23 PM CDT EGFR STAT 02/04/2025 9:23 PM CDT URINALYSIS, MICROSCOPIC ONLY STAT 02/04/2025 9:23 PM CDT DIFFERENTIAL AUTO STAT 02/04/2025 9:2 3 PM CDT DRUGS OF ABUSE SCREEN, URINE WITHOUT CONFIRMATION STAT 02/04/2025 9:23 PM CDT ETHANOL STAT 02/04/2025 9:23 PM CDT THYROID FUNCTION CASCADE STAT 02/04/2025 9:23 PM CDT COMPREHENSIVE METABOLIC PANEL STAT 02/04/2025 9:23 PM CDT CBC WITH AUTO DIFFERENTIAL STAT 02/04/2025 9:23 PM CDT COVID-19 CORONAVIRUS RNA STAT 02/04/2025 9:23 PM CDT URINALYSIS AND REFLEX TO MICROSCOPIC AND CULTURE STAT 02/04/2025 9:23 PM CDT from Last 3 Months Results * HIV 1/2 Antibody plus p24 Antigen Blood (02/11/2025 3:15 PM CDT) HIV 1/2 ab + p24 ag Nonreactive Nonreactive Comment:Nonreactive for HIV- 1 antigen and HIV-1/HIV-2 antibodies. No laboratory evidence of HIV infection. If acute HIV infection is suspected, consider testing for HIV-1 RNA. Current interpretive data was last revised on 22. Blood 02/11/2025 3:15 PM CDT 02/11/2025 6:34 PM CDT us Leora Ireland MD LAB MICROBIOLOGY - GENERAL ORDERABLES Final Result [facility] [address] [facility] Department [place] [address] * eGFR (02/08/2025 3:12 AM CDT) eGFR >90 >=60 mL/min/1. 73 m2 Comment: Interpretive Data Reference Interval Normal >/= 90 mL/min/1.73m2 Mildly decreased* 60 - 89 mL/min/1.73m2 Mildly to moderately decreased 45 - 59 mL/min/1.73m2 Moderately to severely decreased 30 - 44 mL/min/1.73m2 Severely decreased 15 - 29 mL/min/1.73m2 Kidney Failure < 15 mL/min/1.73m2 *Relative to young adult level Estimated glomerular filtration rate is determined by the 2020 CKD-EPI equation recommended by the National Kidney Foundation (A Unifying Approach to GFR Estimation: Recommendations of the NKF-ASK Task Force on Reassessing the Inclusion of Race in Diagnosing Kidney Disease, JASN 2020). The CKD-EPI equation should not be used for patients with unstable renal function and has not been validated in children and those over 70. Current interpretive data was last reviewed 2021. Blood 02/08/2025 3:12 AM CDT 02/08/2025 3:20 AM CDT us Pablo Johnson MD LAB BLOOD ORDERABLES F inal Result [facility] [address] [facility] Department [place] [address] * (ABNORMAL) Comprehensive metabolic panel (02/08/2025 3:12 AM CDT) Sodium 140 135 - 145 mmol/L Potassium, pl 3.3 3.3 - 4.9 mmol/L [facility] Chloride 102 97 - 110 mmol/L [facility] CO2 27 22 - 32 mmol/L [facility] Anion gap 11 2 - 15 mmol/L [facility] BUN 5(L) 6 - 25 mg/dL [facility] Creatinine 1.03 0.80 - 1.30 mg/dL [facility] Glucose 103 70 - 199 mg/dL [facility] Comment: Interpretive Data Fasting glucose >/= 126 mg/dl is diagnostic for diabetes. Fasting is defined as no caloric intake for at least 8 hours. Fasting glucose between 100 mg/dl to 125 mg/dl is diagnostic of prediabetes. In a patient with classic symptoms of hyperglycemia or hyperglycemic crisis, a random glucose >/= 200 mg/dl is diagnostic for diabetes. In the absence of unequivocal hyperglycemia, results should be confirmed by repeat testing. The classification and Diagnosis of Diabetes Diabetes Care 202; 46: S19-S40. Current interpretive data was last revised 2022. Calcium 9.5 8.5 - 10.3 mg/dL [facility] Bilirubin, total 0.5 0.1 - 1.2 mg/dL [facility] Protein, pl 6.1(L) 6.5 - 8.5 g/dL [facility] Albumin 3.8 3.5 - 5.0 g/dL [facility] Alk phos 86 40 - 130 Units/L [facility] ALT 95(H) 7 - 55 Units/L [facility] AST 114(H) 10 - 50 Units/L [facility] Blood 02/08/2025 3:12 AM CDT 02/08/2025 3:20 AM CDT us Pablo Johnson MD LAB BLOOD ORDERABLES F inal Result Performing Organization Address [facility]/ZIP Co de Phone Number KIT [address] [facility] Department [place] [address] * eGFR (02/07/2025 12:15 PM CDT) eGFR >90 >=60 mL/min/1. 73 m2 Comment: Interpretive Data Reference Interval Normal >/= 90 mL/min/1.73m2 Mildly decreased* 60 - 89 mL/min/1.73m2 Mildly to moderately decreased 45 - 59 mL/min/1.73m2 Moderately to severely decreased 30 - 44 mL/min/1.73m2 Severely decreased 15 - 29 mL/min/1.73m2 Kidney Failure < 15 mL/min/1.73m2 *Relative to young adult level Estimated glomerular filtration rate is determined by the 2020 CKD-EPI equation recommended by the National Kidney Foundation (A Unifying Approach to GFR Estimation: Recommendations of the NKF-ASK Task Force on Reassessing the Inclusion of Race in Diagnosing Kidney Disease, JASN 2020). The CKD-EPI equation should not be used for patients with unstable renal function and has not been validated in children and those over 70. Current interpretive data was last reviewed 2021. Blood 02/07/2025 12:1 5 PM CDT 02/07/2025 1:13 PM CDT us Pablo Jonhson MD LAB BLOOD ORDERABLES F inal Result Performing Organization Address City/[facility]/ZIP Co de Phone Number KIT [address] [facility] Department [place] [address] * (ABNORMAL) Comprehensive metabolic panel (02/07/2025 12:15 PM CDT) Sodium 139 135 - 145 mmol/L Potassium, pl 2.8(L) 3.3 - 4.9 mmol/L [facility] Chloride 100 97 - 110 mmol/L [facility] CO2 28 22 - 32 mmol/L [facility] Anion gap 11 2 - 15 mmol/L [facility] BUN 4(L) 6 - 25 mg/dL [facility] Creatinine 0.96 0.80 - 1.30 mg/dL [facility] Glucose 129 70 - 199 mg/dL [facility] Comment: Interpretive Data Fasting glucose >/= 126 mg/dl is diagnostic for diabetes. Fasting is defined as no caloric intake for at least 8 hours. Fasting glucose between 100 mg/dl to 125 mg/dl is diagnostic of prediabetes. In a patient with classic symptoms of hyperglycemia or hyperglycemic crisis, a random glucose >/= 200 mg/dl is diagnostic for diabetes. In the absence of unequivocal hyperglycemia, results should be confirmed by repeat testing. The classification and Diagnosis of Diabetes Diabetes Care 2021; 46: S19-S40. Current interpretive data was last revised 2022. Calcium 9.1 8.5 - 10.3 mg/dL [facility] Bilirubin, total 0.8 0.1 - 1.2 mg/dL [facility] Protein, pl 6.1(L) 6.5 - 8.5 g/dL [facility] Albumin 3.8 3.5 - 5.0 g/dL [facility] Alk phos 77 40 - 130 Units/L [facility] ALT 69(H) 7 - 55 Units/L [facility] AST 94(H) 10 - 50 Units/L [facility] Blood 02/07/2025 12:1 5 PM CDT 02/07/2025 1:13 PM CDT us Pablo Johnson MD LAB BLOOD ORDERABLES F inal Result KIT [address] [facility] Department [place] [address] * eGFR (02/05/2025 4:00 AM CDT) eGFR >90 >=60 mL/min/1. 73 m2 Comment: Interpretive Data Reference Interval Normal >/= 90 mL/min/1.73m2 Mildly decreased* 60 - 89 mL/min/1.73m2 Mildly to moderately decreased 45 - 59 mL/min/1.73m2 Moderately to severely decreased 30 - 44 mL/min/1.73m2 Severely decreased 15 - 29 mL/min/1.73m2 Kidney Failure < 15 mL/min/1.73m2 *Relative to young adult level Estimated glomerular filtration rate is determined by the 2020 CKD-EPI equation recommended by the National Kidney Foundation (A Unifying Approach to GFR Estimation: Recommendations of the NKF-ASK Task Force on Reassessing the Inclusion of Race in Diagnosing Kidney Disease, JASN 2020). The CKD-EPI equation should not be used for patients with unstable renal function and has not been validated in children and those over 70. Current interpretive data was last reviewed 2021. Blood 02/05/2025 4:00 AM CDT 02/05/2025 4:21 AM CDT Gilberto Madsen MD LAB BLOOD ORDER FREDI Final Result [facility] [address] [facility] [place] [address] * HIV 1/2 Antibody plus p24 Antigen Blood (02/05/2025 4:00 AM CDT) HIV 1/2 ab + p24 ag Nonreactive Nonreactive Comment:Nonreactive for HIV- 1 antigen and HIV-1/HIV-2 antibodies. No laboratory evidence of HIV infection. If acute HIV infection is suspected, consider testing for HIV-1 RNA. Current interpretive data was last revised on 22. Blood 02/05/2025 4:00 AM CDT 02/05/2025 4:21 AM CDT Gliberto Madsen MD LAB MICROBIOLOG Y - GENERAL ORDERABLES Final Result Performing Organization Address City/[facility] Co de Phone Number [address] [place] [address] * Hepatitis C antibody Blood (02/05/2025 4:00 AM CDT) Hep C Ab Nonreactive Nonreactive Comment: Antibodies to HCV not detected. Does NOT exclude the possibility of recent exposure to HCV. Current interpretive data was last revised on 22 Interpretive Data Nonreactive: Antibodies to HCV not detected. Does NOT exclude the possibility of recent exposure to HCV. Equivocal: Equivocal for HCV antibodies. Supplemental molecular testing will be automatically performed to determine infection status in accordance with current CDC screening recommendations. Reactive: Positive for HCV antibodies. This may represent current or past HCV infection. Supplemental molecular testing will be automatically performed to determine current infection status in accordance with current CDC screening recommendations. Interpretive data was last revised on 2019. Blood 02/05/2025 4:00 AM CDT 02/05/2025 4:21 AM CDT Gilberto Madsen MD LAB MICROBIOLOG Y - GENERAL ORDERABLES Final Result Performing Organization Address [facility] de Phone Number [address] [place] [address] * (ABNORMAL) Hepatitis A antibody, total Blood (02/05/2025 4:00 AM CDT) Hep A total Reactive( A) Nonreactive Comment:Testing performed by : [facility], [address] [facility], [place]., [address] Blood 02/05/2025 4:00 AM CDT 02/05/2025 7:08 AM CDT Gilberto Madsen MD LAB MICROBIOLOG Y - GENERAL ORDERABLES Final Result Performing Organization Address City/[facility] Co de Phone Number [address] [address] * Hepatitis B core antibody, total Blood (02/05/2025 4:00 AM CDT) Pathologist [facility] Hep B core IgG/IgM Nonreactive Nonreactive Comment:Testing performed by : [facility], [address] [place] [address]., [id number] Blood 02/05/2025 4:00 AM CDT 02/05/2025 7:08 AM CDT Gilberto Madsen MD LAB MICROBIOLOG Y - GENERAL ORDERABLES Final Result Performing Organization Address City/State/[facility] Co de Phone Number [address] [address] * RPR Blood (02/05/2025 4:00 AM CDT) [facility] RPR Nonreactive Nonreactive Comment:Testing performed by : [facility], [address] [place] [address]., [id number] Blood 02/05/2025 4:00 AM CDT 02/05/2025 7:08 AM CDT Gilberto Madsen MD LAB MICROBIOLOG Y - GENERAL ORDERABLES Final Result [address] [address] * Hepatitis B surface antibody (immune status) Blood (02/05/2025 4:00 AM CDT) [facility] HBsAb (immune status) Nonreactive Comment: Interpretive Data Nonreactive: This result is consistent with a lack of immunity to Hepatitis B Virus when used in the setting of routine screening. Equivocal: The immune status of the individual should be further assessed, if appropriate, after consideration of clinical status, risk factors, and additional diagnostic information. Reactive: This result is consistent with immunity to Hepatitis B Virus when used in the setting of routine screening. Current interpretive data was last revised on 19. Blood 02/05/2025 4:00 AM CDT 02/05/2025 4:21 AM CDT Gilberto Madesn MD LAB MICROBIOLOG Y - GENERAL ORDERABLES Final Result Performing Organization Address [facility] de Phone Number [address] [place] [address] * Hepatitis B Surface Antigen Blood (02/05/2025 4:00 AM CDT) Pathologist [facility] HepBsAg Nonreactive Nonreactive Blood 02/05/2025 4:00 AM CDT 02/05/2025 4:21 AM CDT Gilberto Madsen MD LAB MICROBIOLOG Y - GENERAL ORDERABLES Final Result Performing Organization Address [facility] de Phone Number [address] [address] * CBC without differential (02/05/2025 4:00 AM CDT) [facility] WBC 8.51 3.80 - 9.90 K/cumm Hgb 15.7 13.0 - 17.5 g/dL [facility] Hct 46.6 38.9 - 50.3 % [facility] Plt 269 150 - 400 K/cumm [facility] MPV 9.7 9.1 - 12.3 fL [facility] RBC 5.20 4.30 - 5.80 M/cumm [facility] MCV 89.6 81.3 - 96.4 fL [facility] MCH 30.2 27.1 - 33.3 pg [facility] MCHC 33.7 32.3 - 35.7 g/dL [facility] RDW CV 13.2 11.1 - 14.9 % [facility] RDW SD 42.6 35.7 - 48.1 fL [facility] NRBC abs 0.00 0.00 - 0.01 K/cumm [facility] Blood 02/05/2025 4:00 AM CDT 02/05/2025 4:20 AM CDT Gilberto Madsen MD LAB BLOOD ORDER FREDI Final Result Performing Organization Address [facility] Co de Phone Number KIT [address] [place] [address] * (ABNORMAL) Basic metabolic panel (02/05/2025 4:00 AM CDT) [facility] Sodium 140 135 - 145 mmol/L Potassium, pl 3.6 3.3 - 4.9 mmol/L [facility] Chloride 96(L) 97 - 110 mmol/L [facility] CO2 23 22 - 32 mmol/L [facility] Anion gap 21(H) 2 - 15 mmol/L [facility] BUN 10 6 - 25 mg/dL [facility] Creatinine 0.84 0.80 - 1.30 mg/dL [facility] Glucose 101 70 - 199 mg/dL [facility] Comment: Interpretive Data Fasting glucose >/= 126 mg/dl is diagnostic for diabetes. Fasting is defined as no caloric intake for at least 8 hours. Fasting glucose between 100 mg/dl to 125 mg/dl is diagnostic of prediabetes. In a patient with classic symptoms of hyperglycemia or hyperglycemic crisis, a random glucose >/= 200 mg/dl is diagnostic for diabetes. In the absence of unequivocal hyperglycemia, results should be confirmed by repeat testing. The classification and Diagnosis of Diabetes Diabetes Care 2021; 46: S19-S40. Current interpretive data was last revised 2022. Calcium 9.3 8.5 - 10.3 mg/dL [facility] Blood 02/05/2025 4:00 AM CDT 02/05/2025 4:21 AM CDT Gilberto Madsen MD LAB BLOOD ORDER FREDI Final Result Performing Organization Address [facility] Co de Phone Number [address] [place] [address] * CT Abdomen Pelvis W Contrast (02/05/2025 1:41 AM CDT) Anatomical Region Laterality Modality Body N/A Computed Tomogra phy 02/05/2025 1:48 AM CDT Narrative 02/05/2025 1:51 AM CDT EXAM DESCRIPTION: CT ABDOMEN PELVIS W CONTRAST REASON FOR STUDY: Abdominal pain, acute, nonlocalized, abdominal pain, nausea, vomiting, diarrhea presenting to the ED requesting alcohol detox. Patient states he drinks daily. He drinks approximately 4-5 pt of whiskey daily. Last intake was today. Patient also admits to fentanyl use. Last used couple days ago. He currently complains of midsternal chest pain radiating to his right arm. He reports generalized abdominal pain, nausea, vomiting, diarrhea. Patient also complaining of tremors and anxiety. States he has gone through alcohol detox in the past. He reports a history of alcohol withdrawal seizures TECHNIQUE: CT scan of the abdomen and pelvis performed with intravenous and without oral contrast using helical scanning technique with dynamic intravenous contrast injection. Reconstructed coronal and sagittal MPR images reviewed. All images stored on PACS. Automated exposure control was used as a dose optimization technique for this examination. CONTRAST TYPE/DOSE: 90mL of IOVERSOL 350 MG IODINE/ML INTRAVENOUS SYRINGE injected via intravenous COMPARISON: None FINDINGS: LOWER CHEST: Lung bases are clear. Heart size normal. No effusion. LIVER/BILIARY: Severe hepatic steatosis. Biliary tree normal in caliber. GALLBLADDER: Absent. SPLEEN: Normal. PANCREAS: Normal. ADRENAL GLANDS: Normal. KIDNEYS/URINARY TRACT: Unremarkable. GI: Stomach and small bowel appear normal. Colon and appendix unremarkable. OTHER ABDOMINAL/PELVIS: Major vascular structures are grossly patent and normal in caliber. No enlarged lymph node or free fluid. MSK: None. BODY WALL: Normal. IMPRESSION: No acute abnormality identified. Severe hepatic steatosis. THIS IS AN ELECTRONICALLY VERIFIED FINAL REPORT 02/05/2025 1:51 AM - Electronically signed by Salo ZHANG T: Report ID: [id number] Reading Location: [place] [id number] Procedure Note Salo Hoff MD - 02/05/2025 EXAM DESCRIPTION: CT ABDOMEN PELVIS W CONTRAST REASON FOR STUDY: Abdominal pain, acute, nonlocalized, abdominal pain, nausea, vomiting, diarrhea presenting to the ED requesting alcohol detox. Patient states he drinks daily. He drinks approximately 4-5 pt of whiskey daily. Last intake was today. Patient also admits to fentanyl use. Last used couple days ago.He currently complains of midsternal chest pain radiating to his right arm.He reports generalized abdominal pain, nausea, vomiting, diarrhea. Patientalso complaining of tremors and anxiety. States he has gone through alcoholdetox in the past. He reports a history of alcohol withdrawal seizures TECHNIQUE: CT scan of the abdomen and pelvis performed with intravenousand without oral contrast using helical scanning technique with dynamic intravenous contrast injection. Reconstructed coronal and sagittal MPRimages reviewed. All images stored on PACS. Automated exposure control was usedas a dose optimization technique for this examination. CONTRAST TYPE/DOSE: 90mL of IOVERSOL 350 MG IODINE/ML INTRAVENOUSSYRINGE injected via intravenous COMPARISON: None FINDINGS: LOWER CHEST: Lung bases are clear. Heart size normal. No effusion. LIVER/BILIARY: Severe hepatic steatosis. Biliary tree normal incaliber. GALLBLADDER: Absent. SPLEEN: Normal. PANCREAS: Normal. ADRENAL GLANDS: Normal. KIDNEYS/URINARY TRACT: Unremarkable. GI: Stomach and small bowel appear normal. Colon and appendixunremarkable. OTHER ABDOMINAL/PELVIS: Major vascular structures are grossly patent and normal in caliber. No enlarged lymph node or free fluid. MSK: None. BODY WALL: Normal. IMPRESSION: No acute abnormality identified. Severe hepatic steatosis. THIS IS AN ELECTRONICALLY VERIFIED FINAL REPORT 02/05/2025 1:51 AM - Electronically signed by Salo ZHANG T: Report ID: [id number] Reading Location: [id number] us Harjeet RUBIO IMG CT PROCEDURES Final Resu lt * XR Chest 1 Vw Portable (02/05/2025 1:38 AM CDT) Anatomical Region Laterality Modality Body, Chest N/A Computed Radiogr aphy 02/05/2025 1:48 AM CDT Narrative 02/05/2025 1:48 AM CDT EXAM DESCRIPTION: XR CHEST 1 VIEW REASON FOR STUDY: chest pain Pt states I am intoxicated, I drink almost everyday. I've had 4 pints today. I am wanting to stop but I can't do it by myself, I want to get into a rehab. Pt reports last drink 2 hours ago, pt with difficulty focusing during triage, obvious intoxication, no signs of withdrawal at time of triage. TECHNIQUE: Portable upright AP view of the chest. COMPARISON: None FINDINGS: LUNGS AND PLEURA: No focal opacity, large effusion, or pneumothorax identified. HEART/MEDIASTINUM: Trachea midline. Cardiac silhouette normal in size. Mediastinal contours appear normal. BONES: Unremarkable. CHEST WALL: Unremarkable. UPPER ABDOMEN: Unremarkable. IMPRESSION: No acute abnormality identified. THIS IS AN ELECTRONICALLY VERIFIED FINAL REPORT 02/05/2025 1:48 AM - Electronically signed by Salo ZHANG T: Report ID: [id number] Reading Location: [id number] Procedure Note Salo Hoff MD - 02/05/2025 EXAM DESCRIPTION: XR CHEST 1 VIEW REASON FOR STUDY: chest pain Pt states I am intoxicated, I drink almost everyday. I've had 4 pintstoday. I am wanting to stop but I can't do it by myself, I want to get into arehab. Pt reports last drink 2 hours ago, pt with difficulty focusing duringtriage, obvious intoxication, no signs of withdrawal at time of triage. TECHNIQUE: Portable upright AP view of the chest. COMPARISON: None FINDINGS: LUNGS AND PLEURA: No focal opacity, large effusion, orpneumothorax identified. HEART/MEDIASTINUM: Trachea midline. Cardiac silhouette normal in size. Mediastinal contours appear normal. BONES: Unremarkable. CHEST WALL: Unremarkable. UPPER ABDOMEN: Unremarkable. IMPRESSION: No acute abnormality identified. THIS IS AN ELECTRONICALLY VERIFIED FINAL REPORT 02/05/2025 1:48 AM - Electronically signed by Salo ZHANG T: Report ID: [id number] Reading Location: [id number] Harjeet RUBIO IMG XR PROCEDURES Final Resu lt * Troponin T high-sensitivity 2-hour (02/04/2025 11:52 PM CDT) Pathologist [facility] Trop T hs 7 <=22 ng/L Comment: Interpretive Data For further hscTnT resources including the diagnostic algorithm and an aid in interpretation, copy and paste this link: https://nrl.testcatalog.org/show/hsTrop Current Interpretive Data last revised 2020. Trop T hs delta -1 ng/L [facility] Trop T hs interp Insignificant [facility] Blood 02/04/2025 11:5 2 PM CDT 02/04/2025 11:54 PM CDT Harjeet RUBIO LAB BLOOD ORDERABLES Final R esult Performing Organization Address [facility] Co de Phone Number [address] [place] [address] * Lipase (02/04/2025 11:52 PM CDT) [facility] Lipase 42 10 - 99 Units/L Blood 02/04/2025 11:5 2 PM CDT 02/04/2025 11:54 PM CDT Harjeet RUBIO LAB BLOOD ORDERABLES Final R esult Performing Organization Address [facility] Co de Phone Number [address] [place] [address] * ECG 12 lead (02/04/2025 11:45 PM CDT) [facility] Ventricular Rate EKG/Min 101 BPM [facility] Atrial Rate 101 BPM [facility] NV-Interval (MSEC) 150 ms [facility] QRS-Interval (MSEC) 86 ms [facility] QT-Interval (MSEC) 340 ms [facility] QTc 440 ms [facility] P [place] 22 degrees [facility] R [place] 61 degrees [facility] T [place] 12 degrees [facility] Diagnosis Sinus tachycardia Otherwise normal ECG No previous ECGs available Confirmed by MADHAVI BOB M.D. ([id number]) on 02/05/2025 11:06:01 PM [facility] 02/04/2025 11:4 5 PM CDT 02/05/2025 11:06 PM CDT us Gilberto Madsen MD ECG ORDERABLES Final Result Performing Organization Address City/[facility]/ZIP Co de Phone Number [facility] * Troponin T high-sensitivity series (baseline, 2hr, 4hr, 6hr) (02/04/2025 9:23 PM CDT) Trop T hs 8 <=22 ng/L Comment: Interpretive Data For further hscTnT resources including the diagnostic algorithm and an aid in interpretation, copy and paste this link: https://nrl.testcatalog.org/show/hsTrop Current Interpretive Data last revised 2020. Blood 02/04/2025 9:23 PM CDT 02/04/2025 9:28 PM CDT us Harjeet RUBIO LAB BLOOD ORDERABLES Final R esult Performing Organization Address City/[facility] Co de Phone Number [facility] [address] [facility] Department [place] [address] * COVID-19 Coronavirus RNA Nasopharyngeal (02/04/2025 9:23 PM CDT) COVID-19 RNA Negative Negative Nasopharyngeal 02/04/2025 9: 23 PM CDT 02/04/2025 9:28 PM CDT Narrative KIT - 02/04/2025 10:08 PM CDT Is the patient experiencing any symptoms consistent with COVID (eg. Fever, cough, shortness of breath)?->No What is the reason for testing?->Screening prior to Behavioral health admission Interpretive data Testing performed by [facility]. This test is performed using the [employer] Xpert Xpress CoV-2 plus assay. This is a real-time RT-PCR test intended for the qualitative detection of nucleic acid from the SARS-CoV-2. This assay has been cleared by the [place] Food and Drug administration. The performance characteristics have been verified by the [facility]. Results must be considered in the clinical context, and a negative result does not rule out infection. Interpretive data last revised 2024. Interpretive data Testing performed by [facility]. This test is performed using the [employer] Xpert Xpress CoV-2 plus assay. This is a real-time RT-PCR test intended for the qualitative detection of nucleic acid from the SARS-CoV-2. This assay has been cleared by the [facility] Food and Drug administration. The performance characteristics have been verified by the [facility]. Results must be considered in the clinical context, and a negative result does not rule out infection. Interpretive data last revised 2024. Gilberto Madsen MD LAB MICROBIOLOG Y - GENERAL ORDERABLES Final Result [facility] [address] [facility] Department [place] [address] * eGFR (02/04/2025 9:23 PM CDT) eGFR >90 >=60 mL/min/1. 73 m2 Comment: Interpretive Data Reference Interval Normal >/= 90 mL/min/1.73m2 Mildly decreased* 60 - 89 mL/min/1.73m2 Mildly to moderately decreased 45 - 59 mL/min/1.73m2 Moderately to severely decreased 30 - 44 mL/min/1.73m2 Severely decreased 15 - 29 mL/min/1.73m2 Kidney Failure < 15 mL/min/1.73m2 *Relative to young adult level Estimated glomerular filtration rate is determined by the 2020 CKD-EPI equation recommended by the National Kid[employer] (A Unifying Approach to GFR Estimation: Recommendations of the NKF-ASK Task Force on Reassessing the Inclusion of Race in Diagnosing Kidney Disease, JASN 2020). The CKD-EPI equation should not be used for patients with unstable renal function and has not been validated in children and those over 70. Current interpretive data was last reviewed 2021. Blood 02/04/2025 9:23 PM CDT 02/04/2025 9:28 PM CDT Gilberto Madsen MD LAB BLOOD ORDER FREDI Final Result [facility] [address] [facility] Department [place] [address] * (ABNORMAL) Differential, auto (02/04/2025 9:23 PM CDT) Pathologist [facility] Neutrophil abs 8.16(H) 1.50 - 6.50 K/cumm Imm gran abs 0.03 0.00 - 0.10 K/cumm [facility] Lymphocyte abs 1.64 0.80 - 3.30 K/cumm [facility] Monocyte abs 0.81(H) 0.20 - 0.80 K/cumm [facility] Eosinophil abs 0.02 0.00 - 0.50 K/cumm [facility] Basophil abs 0.03 0.00 - 0.10 K/cumm [facility] Neutrophil pct 76.3 % [facility] Comment: Interpretive Data Percent cell count reference ranges are not reported, since discordance with absolute values may lead to misinterpretation of CBC data. Current Interpretive Data was last revised on 2017. Imm gran pct 0.3 % [facility] Comment: Interpretive Data Percent cell count reference ranges are not reported, since discordance with absolute values may lead to misinterpretation of CBC data. Current Interpretive Data was last revised on 2017. Lymphocyte pct 15.3 % [facility] Comment: Interpretive Data Percent cell count reference ranges are not reported, since discordance with absolute values may lead to misinterpretation of CBC data. Current Interpretive Data was last revised on 2017. Monocyte pct 7.6 % [facility] Comment: Interpretive Data Percent cell count reference ranges are not reported, since discordance with absolute values may lead to misinterpretation of CBC data. Current Interpretive Data was last revised on 2017. Eosinophil pct 0.2 % [facility] Comment: Interpretive Data Percent cell count reference ranges are not reported, since discordance with absolute values may lead to misinterpretation of CBC data. Current Interpretive Data was last revised on 2017. Basophil pct 0.3 % [facility] Comment: Interpretive Data Percent cell count reference ranges are not reported, since discordance with absolute values may lead to misinterpretation of CBC data. Current Interpretive Data was last revised on 2017. Blood 02/04/2025 9:23 PM CDT 02/04/2025 9:28 PM CDT Gilberto Madsen MD LAB BLOOD ORDER FREDI Final Result Performing Organization Address [facility] Co de Phone Number [address] [address] * Thyroid Function [place] (02/04/2025 9:23 PM CDT) Pathologist [facility] TSH 1.24 0.30 - 4.20 mcIUnit/mL Blood 02/04/2025 9:23 PM CDT 02/04/2025 9:28 PM CDT Gilberto Madsen MD LAB BLOOD ORDER FREDI Final Result Performing Organization Address [facility] de Phone Number [address] [address] * (ABNORMAL) Urinalysis reflex to microscopic and culture Urine (02/04/2025 9:23 PM CDT) Color, ur Yellow Yellow Clarity, ur Clear Clear [facility] Specific gravity, ur 1.008 1.003 - 1.030 KIT pH, urine 6.0 KIT Comment: Interpretive Data U rine pH is affected by diet, medications, systemic acid-base disturbances, and renal tubular function. pH may affect urinary stone formation. For example, urine pH below 6.0 may help reduce the tendency for calcium phosphate stones and pH greater than 6.0 may reduce the tendency for uric acid stone formation. Source: [facility] Current Interpretive Data was last revised on 2017 Protein, ur ql 1+(A) Negative [facility] Glucose, ur ql Negative Negative [facility] Ketones, ur Trace Negative [facility] Bilirubin, ur Negative Negative [facility] Blood, ur Negative Negative [facility] Urobilinogen, ur <2.0 <2.0 mg/dL [facility] Nitrite, ur Negative Negative [facility] Leukocyte esterase, ur Negative Negative [facility] UA reflex comment Reflex to microscopic UA will be performed. [facility] Urine 02/04/2025 9:23 PM CDT 02/04/2025 9:28 PM CDT Gilberto Madsen MD LAB MICROBIOLOG Y - GENERAL ORDERABLES Final Result Performing Organization Address City/[facility] Co de Phone Number [facility] [address] [facility] Department [place] [address] * (ABNORMAL) CBC with auto differential (02/04/2025 9:23 PM CDT) WBC 10.69(H) 3.80 - 9.90 K/cumm Hgb 16.6 13.0 - 17.5 g/dL [facility] Hct 48.7 38.9 - 50.3 % [facility] Plt 305 150 - 400 K/cumm [facility] MPV 9.4 9.1 - 12.3 fL [facility] RBC 5.53 4.30 - 5.80 M/cumm [facility] MCV 88.1 81.3 - 96.4 fL [facility] MCH 30.0 27.1 - 33.3 pg [facility] MCHC 34.1 32.3 - 35.7 g/dL [facility] RDW CV 13.1 11.1 - 14.9 % [facility] RDW SD 42.0 35.7 - 48.1 fL [facility] NRBC abs 0.00 0.00 - 0.01 K/cumm [facility] Blood Venous blood specimen / Unknown 02/04/2025 9:23 PM CDT 02/04/2025 9:28 PM CDT Gilberto Madsen MD LAB BLOOD ORDER FREDI Final Result [facility] [address] [facility] Department [place] [address] * (ABNORMAL) Drugs of Abuse Screen, Urine without Confirmation (02/04/2025 9:23 PM CDT) [facility] Amphetamine, ur Not Detected CutOff 500ng/mL Comment: Interpretive Data - Amphetamines: Samples containing greater than 500 ng/mL d-methamphetamine or other cross-reacting amphetamine compounds are reported as positive. Amphetamine immunoassays are subject to significant false positive rates due to cross-reactivity of non-amphetamine drugs. Confirmatory testing required for definitive results. Current Interpretive Data was last reviewed 2023. Barbiturates, ur Not Detected CutOff 200ng/mL [facility] Comment: Interpretive Data - Barbiturates: Samples containing greater than 200 ng/mL secobarbital or other cross-reacting barbiturate compounds are reported as positive. False positive and false negative results are possible. Confirmatory testing required for definitive results. Current Interpretive Data was last reviewed 2023. Benzodiazepines, ur Screen Positive, presumptive (A) CutOff 100ng/mL [facility] Comment: Interpretive Data - Benzodiazepines: Samples containing greater than 100 ng/mL nordiazepam or other cross-reacting compounds are reported as positive. False positive and false negative results are possible. Confirmatory testing required for definitive results. Current Interpretive Data was last reviewed 2023. Cannabinoids, ur Not Detected CutOff 50 ng/mL [facility] Comment: Interpretive Data - Cannabinoids: Samples containing greater than 50 ng/mL delta-9 THC -COOH or other cross- reacting compounds are reported as positive. False positive and false negative results are possible. Confirmatory testing required for definitive results. Current Interpretive Data was last reviewed 2023. Cocaine, ur Not Detected CutOff 150ng/mL [facility] Comment: Interpretive Data - Cocaine: Samples containing greater than 150 ng/mL benzoylecgonine or other cross- reacting compounds are reported as positive. False positive and false negative results are possible. Confirmatory testing required for definitive results. Current Interpretive Data was last reviewed 2023. Fentanyl, Ur Screen Positive, presumptive (A) CutOff 5 ng/mL [facility] Comment: Interpretive Data - Fentanyl: Samples containing greater than 5 ng/mL norfentanyl, fentanyl, or other cross-reacting fentanyl compounds are reported as positive. False positive and false negative results are possible. Confirmatory testing required for definitive results. Current Interpretive Data was last reviewed 2023. Methadone, ur Not Detected CutOff 300ng/mL [facility] Comment: Interpretive Data - Methadone: Samples containing greater than 300 ng/mL d,l-methadone or other cross-reacting compounds are reported as positive. False positive and false negative results are possible. Confirmatory testing required for definitive results. Current Interpretive Data was last reviewed 2023. Opiates, ur Not Detected CutOff 300ng/mL [facility] Comment: Interpretive Data - Opiates: Samples containing greater than 300 ng/mL morphine or other cross-reacting compounds are reported as positive. False positive and false negative results are possible. Confirmatory testing required for definitive results. Current Interpretive Data was last reviewed 2023. Oxycodone, ur Not Detected CutOff 100ng/mL [facility] Comment: Interpretive Data - Oxycodone: Samples containing greater than 100 ng/mL oxycodone or other cross-reacting compounds are reported as positive. False positive and false negative results are possible. Confirmatory testing required for definitive results. Current Interpretive Data was last reviewed 2023. Phencyclidine, ur Not Detected CutOff 25 ng/mL [facility] Comment: Interpretive Data - Phencyclidine: Samples containing greater than 25 ng/mL phencyclidine or other cross-reacting compounds are reported as positive. False positive and false negative results are possible. Confirmatory testing required for definitive results. Current Interpretive Data was last reviewed 2023. Urine Creatinine 77 mg/dL [facility] Comment: Interpretive Data Urine Creatinine: < 10 mg/dL is extremely dilute = or > 10 but < 20 mg/dL is dilute = or > 20 mg/dL is normal Current Interpretive Data was last revised on 2017. Urine 02/04/2025 9:23 PM CDT 02/04/2025 9:28 PM CDT Narrative [facility] - 02/04/2025 10:01 PM CDT Drug of Abuse screening is performed by immunoassay for medical purposes only. This is not to be used for Pain Management purposes. Gilberto Madsen MD LAB URINE ORDER FREDI Final Result Performing Organization Address [facility] Co de Phone Number [address]ATH[address] [place] [address] * Urinalysis, microscopic only (02/04/2025 9:23 PM CDT) WBC, ur 0-5 0 - 5 /HPF RBC, ur 0-2 0 - 2 /HPF [facility] Epithelial cells, squamous, ur 1-5 0 - 5 /HPF [facility] Culture Reflex Comment Reflex conditions for urine culture (WBC >10) not met. [facility] Urine 02/04/2025 9:23 PM CDT 02/04/2025 9:28 PM CDT Gilberto Madsen MD LAB URINE ORDER FREDI Final Result Performing Organization Address [facility] de Phone Number [address] [address] * (ABNORMAL) Ethanol (02/04/2025 9:23 PM CDT) Pathologist [facility] Ethanol 340(H) <=10 mg/dL Comment: Interpretive Data Legal limit of intoxication > or = 80 mg/dL Levels > or = 400 mg/dL are potentially TOXIC. Current interpretive data was last revised on 2018. Blood 02/04/2025 9:23 PM CDT 02/04/2025 9:28 PM CDT Gilberto Madsen MD LAB BLOOD ORDER FREDI Final Result Performing Organization Address [facility] Co de Phone Number [address] [place] [address] * (ABNORMAL) Comprehensive metabolic panel (02/04/2025 9:23 PM CDT) Sodium 141 135 - 145 mmol/L Potassium, pl 3.7 3.3 - 4.9 mmol/L [facility] Chloride 97 97 - 110 mmol/L [facility] CO2 21(L) 22 - 32 mmol/L [facility] Anion gap 23(H) 2 - 15 mmol/L [facility] BUN 9 6 - 25 mg/dL [facility] Creatinine 0.78(L) 0.80 - 1.30 mg/dL [facility] Glucose 137 70 - 199 mg/dL [facility] Comment: Interpretive Data Fasting glucose >/= 126 mg/dl is diagnostic for diabetes. Fasting is defined as no caloric intake for at least 8 hours. Fasting glucose between 100 mg/dl to 125 mg/dl is diagnostic of prediabetes. In a patient with classic symptoms of hyperglycemia or hyperglycemic crisis, a random glucose >/= 200 mg/dl is diagnostic for diabetes. In the absence of unequivocal hyperglycemia, results should be confirmed by repeat testing. The classification and Diagnosis of Diabetes Diabetes Care 202; 46: S19-S40. Current interpretive data was last revised 2022. Calcium 9.2 8.5 - 10.3 mg/dL [facility] Bilirubin, total 1.1 0.1 - 1.2 mg/dL [facility] Protein, pl 8.5 6.5 - 8.5 g/dL [facility] Albumin 5.1(H) 3.5 - 5.0 g/dL [facility] Alk phos 146(H) 40 - 130 Units/L [facility] ALT 60(H) 7 - 55 Units/L [facility] AST 77(H) 10 - 50 Units/L [facility] Blood 02/04/2025 9:23 PM CDT 02/04/2025 9:28 PM CDT us Gilberto Madsen MD LAB BLOOD ORDER FREDI [facility] [address] [facility] Department [place] [address] from Last [address] [facility] Advance Directives For more information, please contact: [phone] * Full Code (Latest Code Status on File) Date Activated Date Inactivated Comments 02/05/2025 2:48 AM 02/09/2025 2:25 PM Care Teams Software Configuration Manager Relationship Specialty Start Date End Date Amol Reyez MD [address] [facility] [address] [place] [address] PCP - General Family Medicine 03/10/24
--- OUTSIDE RECORDS SUMMARY | 2025-03-20 10:56 | XMS_ITS | Encounter Summary ---
Author Organization [facility] Health Address [address] [place] [address] Care Team Providers Care Solar Photovoltaic Systems Engineer Name Role Phone Shoaib Aggarwal PA-C Primary Care Provide r Encounter Details Date Type Department Care Team (Late st Contact Info) Description 03/11/2017 Lab Requisition [facility] [address] [place] [address] Jamarcus Mireles MD [address] [facility] [address] [place] [address] Social History Tobacco Use Types Packs/Day Years Used Date Smoking Tobacco: Never Assessed Sex and Gender Information Value Date Recorded Sex Assigned at Not on file 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 Gender Identity Not on file Sexual Orientation Not on file documented as of this encounter Plan of Treatment Not on file documented as of this encounter Procedures Procedure Name Priority Date/Time Associated Diagnosis Comments POTASSIUM BLOOD Routine 03/11/2017 11:18 AM CDT documented in this encounter Results * POTASSIUM BLOOD (03/11/2017 11:18 AM CDT) Potassium 4.0 3.5 - 5.1 mmol/L 03/11/2017 5:16 PM CDT [facility] Blood BLOOD SPECIMEN / Unknown Venipuncture / Unknown 03/11/2017 11:18 AM CDT 03/11/2017 5:04 PM CDT us Jamarcus Mireles MD LAB - CHEMISTRY ORDERABLES Final Result [facility] [address] [place] [address] documented in this encounter Visit Diagnoses Not on filedocumented in this encounter Care Teams Solar Photovoltaic Systems Engineer Relationship Specialty Start Date End Date Shoaib Aggarwal PA-C [address] [place] [address] PCP - General 08/13/19 documented as of this encounter
--- OUTSIDE RECORDS SUMMARY | 2025-03-20 10:56 | XMS_ITS | Clinical Summary ---
Author Organization [facility] Address [address] [place] [address] Care Team Providers Care Sand Miller Name Role Phone Unavailable Primary Care Provider Unavailabl e Social History Tobacco Use Types Packs/Day Years Used Date Smoking Tobacco: Never Assessed Comments Unknown Sex and Gender Information Value Date Recorded Sex Assigned at Not on file Legal Sex Female 6:44 PM CDT Gender Identity Not on file Sexual Orientation Not on file Plan of Treatment Health Maintenance Due Date Last Done Comments Cervical Cancer Screening Pa p Smear (Age 30 to 64) Every 3 Years 1992 Annual Physical 10/19/1995 Hepatitis C 2010 DTaP, Tdap and Td Vaccines ( 1 - Tdap) 10/19/2011 Hepatitis B Vaccines (1 of 3 - 19+ 3-dose series) 10/19/2011 HPV Vaccines (1 - 3-dose SCD M series) 10/19/2019 Cervical Cancer Screening Pa p with HPV Testing (Age 30 to 64) Every 5 Years 2022 Cervical Cancer Screening with HPV 2022 COVID-19 Vaccine (1 - 2023-2 5 season) 2025 Meningococcal B Vaccine Aged Out No l onger eligible based on patient's age to complete this topic Meningococcal Vaccine Aged Out No michelle tara eligible based on patient's age to complete this topic Pneumococcal Vaccine: Pediat rics (0 to 5 Years) and At-Risk Patients (6 to 49 Years) Aged Out No longer eligible b ased on patient's age to complete this topic RSV Immunizations Under 20 Months Aged Out No longer eligible based on patient's age to complete this topic
--- OUTSIDE RECORDS SUMMARY | 2025-03-20 10:56 | XMS_ITS | Clinical Summary ---
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 Gender Identity Not on file Sexual Orientation Not on file Plan of Treatment Health Maintenance Due Date Last Done Comments Hepatitis C Virus (HCV) Screening 1992 Human Papillomavirus (HPV) Immunization (1 - 3-dose SCDM series) 10/19/2019 Influenza Immunization (#1) 2025 03/03/2010, 1 SARS-COV-2 Immunization ( season) 2025 Respiratory Syncytial Virus (RSV) Immunization (Adult) (1 - 1-dose 75+ series) 10/19/2067 Hepatitis B Immunization Completed 994, 02/11/1993, 1992 Meningococcal Immunization (ACWY) Aged Out 12/14/2006 No longer eligible based on patient's age to complete this topic DTaP/Tdap/Td Immunization Discontinued 2017, 07/02/2013, 12/14/2006, Additional history exists TdaP Immunization Completed 03/13/2018, 12/14/2006 Pneumococcal Immunization Combined Aged Out No longer eligible based on patient's age to complete this topic Rotavirus Immunization Aged Out No lo nger eligible based on patient's age to complete this topic Insurance [employer] on file
--- OUTSIDE RECORDS SUMMARY | 2025-03-20 10:56 | XMS_ITS | Encounter Summary ---
Author Organization [facility] Health Address [address] [place] [address] Care Team Providers Care Carpenters Name Role Phone Unavailable Primary Care Provider Unavailabl e Prior Encounters Date Type Department Care Team Description 03/21/2023 10:00 AM PDT Office Visit [facility] [address] [place] [address] Ramiro Rivera DDS Anxiety (Primary Dx) 03/20/2023 Orders Only [facility] [address] [place] [address] [place] [phone] Fabiano Lemons DDS 03/20/2023 1:30 PM PDT Office Visit [facility] [address] [place] [phone] Fabiano Lemons DDS Last Filed Vital Signs Vital Sign Reading Time Taken Comments Blood Pressure 115/69 03/20/2023 1:34 PM PDT Pulse 87 03/20/2023 1:34 PM PDT Temperature - - Respiratory Rate - - Oxygen Saturation - - Inhaled Oxygen Concentration - - Weight - - Height - - Body Mass Index - - Plan of Treatment Not on file Procedures Procedure Name Priority Date/Time Associated Diagnosis Comments DEEP SEDATION Routine 03/21/2023 10:55 AM PDT Anxiety THERAPEUTIC PARENTERAL DRUGS, TWO OR MORE ADMINISTRATIONS, DIFFERENT MEDICATIONS Routine 03/21/2023 10:00 AM PDT DEEP SEDATION/GENERAL ANESTHESIA EACH SUBSEQUENT 15 MINUTE INCREMENT Routine 03/21/2023 10:00 AM PDT DEEP SEDATION/GENERAL ANESTHESIA FIRST 15 MINUTES Routine 03/21/2023 10:00 AM PDT DEEP SEDATION/GENERAL ANESTHESIA EACH SUBSEQUENT 15 MINUTE INCREMENT Routine 03/21/2023 10:00 AM PDT LIMITED ORAL EVALUATION - PROBLEM FOCUSED Routine 03/21/2023 10:00 AM PDT 21 REMOVAL OF RESIDUAL TOOTH ROOTS (CUTTING PROCEDURE) Routine 03/21/2023 10:00 AM PDT 19 EXTRACTION, ERUPTED TOOTH REQUIRING REMOVAL OF BONE AND/OR SECTIONING OF TOOTH Routine 03/21/2023 10:00 AM PDT 32 REMOVAL OF IMPACTED TOOTH - PARTIALLY BONY Routine 03/21/2023 10:00 AM PDT 1 EXTRACTION, ERUPTED TOOTH REQUIRING REMOVAL OF BONE AND/OR SECTIONING OF TOOTH Routine 03/21/2023 10:00 AM PDT 17 REMOVAL OF IMPACTED TOOTH - PARTIALLY BONY Routine 03/21/2023 10:00 AM PDT 16 REMOVAL OF RESIDUAL TOOTH ROOTS (CUTTING PROCEDURE) Routine 03/21/2023 10:00 AM PDT INTRAORAL PHOTO Routine 03/20/2023 1:30 PM PDT INTRAORAL PHOTO Routine 03/20/2023 1:30 PM PDT INTRAORAL PHOTO Routine 03/20/2023 1:30 PM PDT INTRAORAL PHOTO Routine 03/20/2023 1:30 PM PDT PANORAMIC RADIOGRAPHIC IMAGE Routine 03/20/2023 1:30 PM PDT COMPREHENSIVE ORAL EVALUATION - NEW OR ESTABLISHED PATIENT Routine 03/20/2023 1:30 PM PDT INTRAORAL - COMPREHENSIVE SERIES OF RADIOGRAPHIC IMAGES Routine 03/20/2023 1:30 PM PDT Results * DEEP SEDATION (03/21/2023 10:55 AM PDT) Ramiro Delacruz DDS - 03/21/2023 10:55 AM PDT Ramiro Marino DDS 03/21/2023 11:04 AM Deep Sedation Date/Time: 03/21/2023 10:55 AM Performed by: Ramiro Marino DDS Authorized by: Ramiro Marino DDS Consent: Consent obtained: Verbal and written Consent given by: Patient Risks discussed: Allergic reaction, dysrhythmia, prolonged hypoxia resulting in organ damage, prolonged sedation necessitating reversal, respiratory compromise necessitating ventilatory assistance and intubation, vomiting, nausea and inadequate sedation Alternatives discussed: Analgesia without sedation Indications: Procedure performed: Extraction, erupted tooth/exposed root Intended level of sedation: Deep Pre-sedation assessment: IV: 22 gauge Vein SIte: Right arm Intravenous: normal saline IV Start Time: 03/21/2023 10:10 AM ASA classification: class 2 - patient with mild systemic disease Mallampati score: II - soft palate, uvula, fauces visible Tonsils: small Thyromental distance: > 6 cm Neck Mobilty: Full Heart S1: S1 Heart S2: S2 Lungs: CTAB NPO: greater than or equal to 8 hours Pre-sedation assessments completed and reviewed: airway patency, cardiovascular function, mental status, respiratory function and temperature History of difficult intubation: no Pre-sedation assessment completed: 03/21/2023 10:10 AM Immediate pre-procedure details: Reassessment: Patient reassessed immediately prior to procedure Verified: bag valve mask available, emergency equipment available, intubation equipment available, IV patency confirmed, oxygen available, reversal medications available and suction available Procedure details: Sedation start time: 03/21/2023 10:10 AM Preoxygenation: Nasal cannula Position: reclined Sedation: Versed, ketamine, midazolam, propofol, decadron and zofran Analgesia: Fentanyl Intra-procedure monitoring: Blood pressure monitoring, continuous capnometry, frequent LOC assessments, frequent vital sign checks, continuous pulse oximetry and nursing admin Intra-procedure events: none Sedation end time: 03/21/2023 11:00 AM Total sedation time (minutes): 50 IV End Time: 03/21/2023 11:00 AM Post-procedure details: Post-sedation assessment completed: 03/21/2023 11:00 AM Criteria for discharge: cardiovascular function satisfactory and stable, airway patency satisfactory and stable, easily arousable, responsiveness at or near presedation level, protective reflexes intact, communication at presedation level, ability to sit up unaided at presedation level and hydration adequate Patient tolerance: Tolerated well, no immediate complications Patient is stable for discharge or admission: yes Research Affiliate's Name:: Selvin Ramiro Rivera DDS ANESTHESIA ORDERABLES Fi nal Result Visit Diagnoses Diagnosis Start Date Anxiety Anxiety state, unspecified 03/21/2023 Insurance [facility] PPO
[2025-03-20 11:56] LABS: Hematocrit 43.3 % (42.0-52.0); Hemoglobin 14.3 g/dL (14.0-18.0); Immature Granulocyte Percent A 0.5 % (0-0.5); Lymphocytes Absolute Auto 1.62 K/mm3 (0.9-3.2); Mean Corpuscular HGB Conc 33.0 g/dl (32-36); Mean Corpuscular Hemoglobin 29.3 pg (26-34); Mean Corpuscular Volume 88.7 fl (80-100); Nucleated Red Blood Cells Absolute Auto 0.000 K/mm3 (0.0-0.012); Nucleated Red Blood Cells Perc 0.0 % (0.0-0.2); Platelet Count Result 216 k/mm3 (150-375); Red Blood Count 4.88 M/mm3 (4.6-6.20); White Blood Count 11.6 K/mm3 (4.5-10.0)
[2025-03-20 12:17] LABS: Alanine Aminotransferase 94 U/L (6-50); Albumin Level 4.2 g/dL (3.5-5.1); Alkaline Phosphatase 86 U/L (38-126); Anion Gap 7 mmol/L (4-12); Aspartate Amino Transferase 72 U/L (17-59); Bilirubin,Total 0.4 mg/dL (0.2-1.3); Blood Urea Nitrogen 5 mg/dL (9-20); Calcium 8.9 mg/dL (8.4-10.2); Carbon Dioxide 28 mmol/L (22-30); Chloride 102 mmol/L (98-107); Estimated Glomerular Filt Rate > 60; Glucose 173 mg/dL (65-110); Potassium 3.8 mmol/L (3.4-5.0); Sodium 137 mmol/L (137-145); Total Protein 7.1 g/dL (6.3-8.2)
[2025-03-25 10:09] LABS: Free Testosterone (Direct) 29.7 pg/mL (8.7-25.1)
== END 2025-03-20 10:53 | disposition home or self-care (01) ==
LOC: ANHLAB 10:53
PROVIDERS: PCP Internal Medicine; Visit Provider Internal Medicine
DX: Z51.81 Encounter for therapeutic drug level monitoring (principal); R79.89 Other specified abnormal findings of blood chemistry; I10 Essential (primary) hypertension; F10.10 Alcohol abuse, uncomplicated
CPT/HCPCS: 36415; 80053; 84402; 84403; 85025